=== PATIENT | female | born 2005 | race Caucasian/White ===

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

== ENCOUNTER 2024-05-01 07:43 | Outpatient (AMB) | payer OTHER, SELFPAY ==
--- NOTE | 2024-05-01 08:01 | A.OFFPC_ITS ---
Vital Signs 05/01/24 08:14 Height 5 ft 4.96 in Weight 324 lb BMI 54.0 BP 138/84 Blood Pressure Location Rt brachial Position Sitting Respiration 16 Pulse 87 Pulse Source Pulse Oximeter Temp 96.8 F Temp Source Temporal Artery Scan Pulse Oximetry (%) 98 Oxygen Delivery Method Room Air Intake Visit Reasons: Establish Care not a transfer Intake Note: New patient visit. Is supposed to be on metformin and sertraline but has been out of medication for a year. Doesn't know the strength of the sertraline. Is last menstrual period known: Yes Last menstrual period: 04/30/24 Allergies No Known Allergies Allergy (Verified 05/01/24 08:13) Medication List - Last Reconciled 05/01/24 by Deanna Head PA-C vmtzaahtmv-sqazmdnsmopqc-pwjr 50-300-40 mg (Fioricet) 1 cap PO Q8H PRN 3 days Tobacco use date assessed: 05/01/24 Dental Screening Dental Screen Date: 05/01/24 Did you have a dental visit in the last 12 months?: No Did you have a dental problem in the last 6 months where you did not have access to dental care?: No Was dental information given to patient?: Yes HPI Establish Care not a transfer HPI Details Patient is a 19-year-old female who presents today to establish care. She states she is transferring from pediatrics and was diagnosed with epilepsy, pcos, chronic sinusitus, and anxiety with depression. Psych: she was on sertraline 50 mg for years and states that it was very helpful. She never tried anything different. No SI/HI. She does request a therapist. -She is starting school at [employer]. This is her first time living on a campus. She thinks she likes her new roommates but worries that they may constitution party more than she does. ENT: has a hx of chronic sinusitis and was followed by ENT and did have sinus surgery. She cannot tell me much about this other than it was done last year and it has helped. She was on flonase which was helpful but stopped getting rx filled, does not know why. Neuro: last followed with [facility] 3 years ago. Her last seizure was 4 years ago. She states she last took meds 3 years ago and they were trying to taper her off of the medications. She states it makes her worried because she does get episodes of staring spells. She states she can tell when this is going to happen. She is worried that she is going to end up with a breakthrough seizure. She is under increased stress starting school and will be living on campus. She has been getting more tension headaches than before. States that she has a workup for this in the past. Uses Fioricet as needed. Internal Controls Analyst: She used to take metformin for her pcos but it caused GI upset so she stopped it about a year ago. her a1c today is 5.6. 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 How often do you have a drink containing alcohol?: Never 3. How often do you have six or more drinks on one occasion?: Never Total Score: 0 Physical exam (Primary Care) Vital Signs: Last Vital Signs Temp 96.8 F 05/01/24 08:14 Pulse 87 05/01/24 08:14 Resp 16 05/01/24 08:14 BP 138/84 05/01/24 08:14 Pulse Ox 98 05/01/24 08:14 Oxygen Delivery Method Room Air 05/01/24 08:14 BMI result Body Mass Index 54.0 Tobacco/Smoking Status: Tobacco use Status Tobacco use date assessed 05/01/24 05/01/24 08:18 Patient Tobacco Use Status Never used Tobacco 05/01/24 08:18 e-Cigarette/Vaping Use Never Used 05/01/24 08:18 Const Orientation/consciousness: patient oriented x3 HENMT Ears: hearing grossly normal bilaterally Neck Thyroid: Thyroid normal Lymphatic: no lymphadenopathy noted Resp Auscultation: clear to auscultation bilaterally Cardio Rate: regular rate Rhythm: regular rhythm Heart sounds: S1 normal heart sound present and S2 normal heart sound present GI Inspection: Yes normal to inspection Palpation (GI): Soft to palpation and Other GI palpation findings present (nontender, no cva tenderness) Auscultation: normoactive bowel sounds Rectal Exam - Female: deferred Skin General skin exam: no rashes or lesions noted Neuro General: patient oriented x3, gait normal and no focal motor deficits Assessment and Plan Assessment & Plan (1) History of epilepsy: Code(s): Z86.69 - Personal history of other diseases of the nervous system and sense organs Plan: Referral to neurology as she does endorse more staring episodes . (2) Tension headache, chronic: Code(s): G44.229 - Chronic tension-type headache, not intractable Qualifiers: Intractability: not intractable Qualified Code(s): G44.229 - Chronic tension-type headache, not intractable Plan: Uses Fioricet as needed and states that she has had a slight increase in headaches. She states that this has previously managed by Neurology. Referral to neurology for this and her history of seizures. Advised to get records. (3) PCOS (polycystic ovarian syndrome): Code(s): E28.2 - Polycystic ovarian syndrome Plan: Following with manager of software (4) Insulin resistance: Code(s): E88.819 - Insulin resistance, unspecified Plan: Did not tolerate metformin. A1c 5.6 (5) Chronic sinusitis: Code(s): J32.9 - Chronic sinusitis, unspecified Qualifiers: Sinusitis location: maxillary Qualified Code(s): J32.0 - Chronic maxillary sinusitis Plan: We will start Flonase. (6) Anxiety with depression: Code(s): F41.8 - Other specified anxiety disorders Plan: We will restart sertraline. Advised to take half a tab for 2 weeks and increase to 1 tablet. Follow up in 1 month. Sooner if needed. Referral to behavioral health. Labs ordered today. Orders: Orders Complete Blood Count Auto Diff Today E28.2 - Polycystic ovarian syndrome, E88.819 - Insulin resistance, unspecified, Z01.84 - Encounter for antibody response examination, Z86.69 - Personal history of other diseases of the nervous system and sense organs Varicella IgG Antibody Today E28.2 - Polycystic ovarian syndrome, E88.819 - Insulin resistance, unspecified, Z01.84 - Encounter for antibody response ex amination, Z28.39 - Other underimmunization status, Z86.69 - Personal history of other diseases of the nervous system and sense organs T Spot TB Today E28.2 - Polycystic ovarian syndrome, E88.819 - Insulin resistance, unspecified, Z01.84 - Encounter for antibody response examination, Z28.39 - Other underimmunization status, Z86.69 - Personal history of other diseases of the nervous system and sense organs Comprehensive Kaufman. Panel Fast Today E28.2 - Polycystic ovarian syndrome, E88.819 - Insulin resistance, unspecified, Z01.84 - Encounter for antibody response examination, Z86.69 - Personal history of other diseases of the nervous system and sense organs MMR IgG Measles Mumps Rubella Today E28.2 - Polycystic ovarian syndrome, E88.819 - Insulin resistance, unspecified, Z01.84 - Encounter for antibody response examination, Z28.39 - Other underimmunization status, Z86.69 - Personal history of other diseases of the nervous system and sense organs Lipid Panel Today E28.2 - Polycystic ovarian syndrome, E88.819 - Insulin resistance, unspecified, Z01.84 - Encounter for antibody response examination, Z86.69 - Personal history of other diseases of the nervous system and sense organs Hepatitis B Surface Antibody Today E28.2 - Polycystic ovarian syndrome, E88.819 - Insulin resistance, unspecified, Z01.84 - Encounter for antibody response examination, Z28.39 - Other underimmunization status, Z86.69 - Personal history of other diseases of the nervous system and sense organs Referrals Behavioral Health Referral F41.8 - Other specified anxiety disorders Neurology Referral G44.229 - Chronic tension-type headache, not intractable, Z86.69 - Personal history of other diseases of the nervous system and sense organs Medications: New sertraline 50 mg PO DAILY 90 tabs 3RF fluticasone propionate 50 mcg/actuation (Flonase Allergy Relief) administer into each nostril 2 sprays intranasal DAILY 16 grams 0RF Coding Level of Care Code New Pt Level 4 (85468) Complex EM visit Add On G2211 Diagnoses History of epilepsy Z86.69 Chronic tension-type headache, not intractable G44.229 Intractability: not intractable PCOS (polycystic ovarian syndrome) E28.2 Insulin resistance E88.819 Chronic maxillary sinusitis J32.0 Sinusitis location: maxillary Anxiety with depression F41.8
[2024-05-01 08:14] VITALS: BP 138/84; PULSE 87; RESP 16; TEMP 36; O2SAT 98; BMI 54.0
== END 2024-05-01 08:48 | disposition home or self-care (01) ==
PROVIDERS: PCP Physician Assistant; Visit Provider Physician Assistant
DX: Z86.69 Personal history of other diseases of the nervous system and sense organs (principal); G44.229 Chronic tension-type headache, not intractable; E28.2 Polycystic ovarian syndrome; E88.819 Insulin resistance, unspecified; J32.0 Chronic maxillary sinusitis; F41.8 Other specified anxiety disorders
CPT/HCPCS: 99204; G2211

== ENCOUNTER 2024-05-01 08:52 | Outpatient (REF) | payer OTHER, SELFPAY ==
[2024-05-01 12:09] LABS: MANUAL DIFF FLAG NO
[2024-05-01 12:46] LABS: Alanine Aminotransferase 55 U/L (0-31); Albumin Level 4.4 g/dL (3.5-5.0); Alkaline Phosphatase 53 U/L (39-117); Anion Gap 15 (12-20); Aspartate Amino Transferase 31 U/L (5-31); Bilirubin Total 0.2 mg/dL (0.0-1.0); Blood Urea Nitrogen 9 mg/dL (9-16); Calcium 10.3 mg/dL (8.4-10.2); Carbon Dioxide 20 mmol/L (22-29); Chloride 107 mmol/L (96-108); Cholesterol 178 mg/dL (<200); Estimated Glomerular Filt Rate > 60; Glucose Fasting 94 mg/dL (60-99); HDL Cholesterol 44 mg/dL (>40); LDL Cholesterol Calculated 95 mg/dL (<100); Potassium 3.8 mmol/L (3.3-5.1); Sodium 138 mmol/L (135-145); Total Protein 8.1 g/dL (6.5-8.0); Triglycerides 195 mg/dL (<150)
[2024-05-01 13:31] LABS: Basophils Absolute Auto 0.1 X10*3/uL (0.0-0.2); Basophils Percent Auto 0.9 % (0-2); Eosinophils Absolute Auto 0.2 X10*3/uL (0.0-0.4); Eosinophils Percent Auto 2.6 % (0-4); Hematocrit 42.3 % (37.0-47.0); Imm Gran Abs Auto 0.02 X10*3/uL (0.00-0.03); Imm Gran Pct Auto 0.3 % (0.0-0.4); Lymphocytes Absolute Auto 2.3 X10*3/uL (1.2-4.9); Lymphocytes Percent Auto 39.2 % (20-40); Mean Corpuscular HGB Conc 33.1 g/dl (31.0-35.0); Mean Corpuscular Hemoglobin 28.3 pg (27.0-33.0); Mean Corpuscular Volume 85.5 fL (80.0-98.0); Mean Platelet Volume 10.9 fL (9.4-12.3); Monocytes Absolute Auto 0.7 X10*3/uL (0.1-1.2); Monocytes Percent Auto 11.3 % (2-11); Neutrophils Absolute Auto 2.7 x10*3/uL (2.0-8.3); Neutrophils Percent Auto 45.7 % (45-73); Platelet Count 315 X10*3/uL (160-400); Red Blood Count 4.95 X10*6/uL (4.20-5.50); Red Cell Distribution Width 13.7 % (11.0-16.0); White Blood Count 5.9 X10*3/uL (4.8-10.8)
[2024-05-02 04:54] LABS: HBS Num1 0.32 mIU/mL (0-7.99); ~Hepatitis B Surface Antibody NONREACTIVE (Nonreactive)
[2024-05-02 12:48] LABS: Mumps Virus IgG Antibody <9.00 AU/mL; Rubella IgG Antibody 0.94 Index; Rubeola IgG (Measles) <13.50 AU/mL; Varicella IgG Antibody <135.00 index
[2024-05-04 07:43] LABS: TS Negative Control Passed; TS Panel A 0; TS Panel B 0; TS Positive Control Passed; TSpotTB Negative (Negative)
== END 2024-05-01 08:53 | disposition home or self-care (01) ==
LOC: HO.WFDLDS 08:52
PROVIDERS: Visit Provider Physician Assistant
DX: E88.819 Insulin resistance, unspecified (principal); E28.2 Polycystic ovarian syndrome; Z86.69 Personal history of other diseases of the nervous system and sense organs; Z01.84 Encounter for antibody response examination; Z28.39 Other underimmunization status
CPT/HCPCS: 36415; 80053; 80061; 85025; 86481; 86706; 86735; 86762; 86765; 86787

== ENCOUNTER 2024-05-06 16:02 | Outpatient (REF) | payer OTHER, SELFPAY ==
[2024-05-06 17:11] LABS: Alanine Aminotransferase 53 U/L (0-31); Albumin Level 4.3 g/dL (3.5-5.0); Alkaline Phosphatase 54 U/L (39-117); Anion Gap 17 (12-20); Aspartate Amino Transferase 42 U/L (5-31); Bilirubin Total 0.3 mg/dL (0.0-1.0); Blood Urea Nitrogen 9 mg/dL (9-16); Calcium 10.3 mg/dL (8.4-10.2); Carbon Dioxide 19 mmol/L (22-29); Chloride 108 mmol/L (96-108); Estimated Glomerular Filt Rate > 60; Glucose Random 95 mg/dL (60-115); Potassium 4.5 mmol/L (3.3-5.1); Sodium 139 mmol/L (135-145); Total Protein 8.3 g/dL (6.5-8.0)
== END 2024-05-06 16:03 | disposition home or self-care (01) ==
LOC: HO.LAB 16:02
PROVIDERS: PCP Internal Medicine; Visit Provider Physician Assistant
DX: R79.89 Other specified abnormal findings of blood chemistry (principal)
CPT/HCPCS: 36415; 80053

== ENCOUNTER → 2024-06-05 07:54 | Outpatient (BNVA) | payer OTHER, SELFPAY | PROVIDERS: PCP Internal Medicine; Visit Provider Physician Assistant | DX: F41.8 Other specified anxiety disorders (principal) | CPT/HCPCS: 93005; 99212 ==

== ENCOUNTER 2024-06-05 11:42 | Outpatient (AMB) | payer OTHER, SELFPAY ==
--- NOTE | 2024-06-05 11:52 | A.OFFPC_ITS ---
Vital Signs 06/05/24 11:53 Height 5 ft 4.96 in Weight 326 lb 8 oz BMI 54.4 BP 137/83 Blood Pressure Location Rt brachial Position Sitting Respiration 16 Pulse 102 H Pulse Source Pulse Oximeter Pulse Oximetry (%) 98 Oxygen Delivery Method Room Air Intake Visit Reasons: f/u anxiety Intake Note: Follow up anxiety Marshmallow Maker Required: No Allergies No Known Allergies Allergy (Verified 06/05/24 11:52) Medication List - Last Reconciled 06/05/24 by Deanna Head PA-C qshcrpfbtl-fjkowzmcdyeow-hwtz 50-300-40 mg (Fioricet) 1 cap PO Q8H PRN 3 days fluticasone propionate 50 mcg/actuation (Flonase Allergy Relief) 2 sprays intranasal DAILY Tobacco use date assessed: 05/01/24 Dental Screening Dental Screen Date: 05/01/24 HPI f/u anxiety HPI Details Patient is a 19-year-old female who presents today for a follow up of her anxiety. She has a history of anxiety and depression and was recently started on sertraline 50 mg. Has felt like it has helped somewhat but not to the degree that she would like. She says that while she is at school she just feels very anxious. She is living on campus and going to [employer]. 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 She states that she can feel her heart start to speed up and she knows that she is about to have a panic attack. This only happens while she is at school. She does have a good support system with her family. She has not followed with her agronomy advisor or a therapist yet on campus. She thinks that part of her anxiety is at her work load is too high. She is working on getting accommodations in place. I did fill this out at her last visit. 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 Current occupational exposures/hazards: No Cognitive needs: No Hearing needs: No Vision needs: No Questionnaire Thrive Questionnaire Date Thrive assessed: 06/03/24 I am a: Patient What is your living situation today?: I have a steady place to live Within the past 12 months, did the food you bought not last and you didn't have the money to get more?: I choose not to answer this question Within the past 12 months, did you worry whether your food would run out before you got money to buy more?: I choose not to answer this question Do you have trouble paying for medicines?: I choose not to answer this question Do you have trouble getting transportation to medical appointments?: No Do you have trouble paying your heating and electricity bill?: I choose not to answer this question Do you have trouble taking care of your child, family member or friend?: I choose not to answer this question Do you have trouble with day-to-day activities such as bathing, preparing meals, shopping, managing finances, etc.?: I choose not to answer this question Are you currently unemployed and looking for a job?: I choose not to answer this question Are you interested in more education?: I choose not to answer this question Please select the resources that you would like help with: None Currently or been in a relationship where the following occur: No concerns reported THRIVE Score: 0 LENORA-7 AMB Questionnaire LENORA-7 Date LENORA - 7 assessed: 06/05/24 Source: Developed by Drs. River Villanueva, Milagro Ramírez, Elia Banks and colleagues, with an educational reji from [employer]. Physical exam (Primary Care) Vital Signs: Last Vital Signs Pulse 102 H 06/05/24 11:53 Resp 16 06/05/24 11:53 BP 137/83 06/05/24 11:53 Pulse Ox 98 06/05/24 11:53 Oxygen Delivery Method Room Air 06/05/24 11:53 BMI result Body Mass Index 54.4 Tobacco/Smoking Status: Tobacco use Status Tobacco use date assessed 05/01/24 06/05/24 11:57 Patient Tobacco Use Status Never used Tobacco 06/05/24 11:57 e-Cigarette/Vaping Use Never Used 06/05/24 11:57 Thrive Assessment: Date of Thrive Assessment Date Thrive assessed 06/03/24 06/05/24 11:57 Currently or been in a relationship where the following occur: No concerns reported Const Orientation/consciousness: patient oriented x3 HENMT Ears: hearing grossly normal bilaterally Neck Thyroid: Thyroid normal Lymphatic: no lymphadenopathy noted Resp Auscultation: clear to auscultation bilaterally Cardio Rate: regular rate Rhythm: regular rhythm Heart sounds: S1 normal heart sound present and S2 normal heart sound present GI Inspection: Yes normal to inspection Palpation (GI): Soft to palpation and Other GI palpation findings present (nontender, no cva tenderness) Auscultation: normoactive bowel sounds Rectal Exam - Female: deferred Skin General skin exam: no rashes or lesions noted Neuro General: patient oriented x3, gait normal and no focal motor deficits Office Procedures EKG Details: EKG today in office is normal sinus rhythm at a rate of 89 beats per minute with nonspecific STT wave abnormalities. No prior study to compare. EKG interpreted by myself and Dr. Espino. [id number], Complete Assessment and Plan Assessment & Plan (1) Anxiety with depression: Code(s): F41.8 - Other specified anxiety disorders Plan: Given that she is tolerating the Zoloft well I will increase dosage to 100 mg. Hydroxyzine ordered to use as needed for panic. We did discuss risks and benefits and adverse effects of this medication. Strongly encouraged her to follow with her agronomy advisor and with a counselor. She will call me if anything worsens or changes. Advised to seek emergent medical treatment should she develop any thoughts of SI/HI. Feels safe. Has a good support system. One-month follow-up. Sooner if needed. Patient understands and agrees with this plan. Orders: Orders AMB EKG-In Office 06/05/24 R00.2 - Palpitations Medications: New sertraline 100 mg PO DAILY 90 tabs 1RF hydroxyzine HCl 25 mg PO Q8H PRN 30 tabs 2RF anxiety 30 days Discontinued sertraline Discontinued Reason: Doctor's Order 50 mg PO DAILY 90 tabs 3RF Coding Level of Care Code Est Pt Level 4 (47764) Complex EM visit Add On G2211 Diagnoses Anxiety with depression F41.8 CPT Codes EKG - CPT: 34442-Uvwaijxgnqexdfrjq, Complete ([id number])
[2024-06-05 11:53] VITALS: BP 137/83; PULSE 102; RESP 16; O2SAT 98; BMI 54.4
== END 2024-06-05 12:41 | disposition home or self-care (01) ==
PROVIDERS: PCP Internal Medicine; Visit Provider Physician Assistant
DX: F41.8 Other specified anxiety disorders (principal)

== ENCOUNTER 2024-06-26 08:36 | Outpatient (AMB) | payer OTHER, SELFPAY ==
--- NOTE | 2024-06-26 08:59 | A.OFFPC_ITS ---
Vital Signs 06/26/24 09:00 Height 5 ft 4.95 in Weight 320 lb 8 oz BMI 53.4 BP 130/77 Blood Pressure Location Rt brachial Position Sitting Respiration 16 Pulse 101 H Pulse Source Pulse Oximeter Pulse Oximetry (%) 97 Oxygen Delivery Method Room Air Intake Visit Reasons: follow up meds Intake Note: Follow up Allergies No Known Allergies Allergy (Verified 06/05/24 11:52) Medication List - Last Reconciled 06/26/24 by Deanna Head PA-C [id number]-ihvrinngwdtys-tzcb 50-300-40 mg (Fioricet) 1 cap PO Q8H PRN 3 days fluticasone propionate 50 mcg/actuation (Flonase Allergy Relief) 2 sprays intranasal DAILY hydroxyzine HCl 25 mg PO Q8H PRN 30 days sertraline 100 mg PO DAILY Tobacco use date assessed: 05/01/24 Dental Screening Dental Screen Date: 05/01/24 HPI follow up meds HPI Details Patient is a 19-year-old female who presents today for a follow up. She was seen recently and increased on her sertraline to 100 mg daily for anxiety and depression. She states that the increased dosage is going very well for her. She feels much more in control of her mood. States that she has been happier and has not needed to change any of her classes. She states her roommate appears to be less bothersome. She is adjusting much better to school now. Denies needing to use hydroxyzine at all. No SI/HI. 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 Current occupational exposures/hazards: No Cognitive needs: No Hearing needs: No Vision needs: No Questionnaire Thrive Questionnaire Date Thrive assessed: 06/03/24 I am a: Patient What is your living situation today?: I have a steady place to live Within the past 12 months, did the food you bought not last and you didn't have the money to get more?: I choose not to answer this question Within the past 12 months, did you worry whether your food would run out before you got money to buy more?: I choose not to answer this question Do you have trouble paying for medicines?: I choose not to answer this question Do you have trouble getting transportation to medical appointments?: No Do you have trouble paying your heating and electricity bill?: I choose not to answer this question Do you have trouble taking care of your child, family member or friend?: I choose not to answer this question Do you have trouble with day-to-day activities such as bathing, preparing meals, shopping, managing finances, etc.?: I choose not to answer this question Are you currently unemployed and looking for a job?: I choose not to answer this question Are you interested in more education?: I choose not to answer this question Please select the resources that you would like help with: None Currently or been in a relationship where the following occur: No concerns reported THRIVE Score: 0 LENORA-7 AMB Questionnaire LENORA-7 Date LENORA - 7 assessed: 06/05/24 Source: Developed by Drs. River Villanueva, Milagro Ramírez, Elia Banks and colleagues, with an educational reji from [employer]. Physical exam (Primary Care) Vital Signs: Last Vital Signs Pulse 101 H 06/26/24 09:00 Resp 16 06/26/24 09:00 BP 130/77 06/26/24 09:00 Pulse Ox 97 06/26/24 09:00 Oxygen Delivery Method Room Air 06/26/24 09:00 BMI result Body Mass Index 53.4 Tobacco/Smoking Status: Tobacco use Status Tobacco use date assessed 05/01/24 06/26/24 09:03 Patient Tobacco Use Status Never used Tobacco 06/26/24 09:03 e-Cigarette/Vaping Use Never Used 06/26/24 09:03 Thrive Assessment: Date of Thrive Assessment Date Thrive assessed 06/03/24 06/26/24 09:03 Currently or been in a relationship where the following occur: No concerns reported Const Orientation/consciousness: patient oriented x3 HENMT Ears: hearing grossly normal bilaterally Resp Auscultation: clear to auscultation bilaterally Cardio Rate: regular rate Rhythm: regular rhythm Heart sounds: S1 normal heart sound present and S2 normal heart sound present Skin General skin exam: no rashes or lesions noted Neuro General: patient oriented x3, gait normal and no focal motor deficits Coding Level of Care Code Est Pt Level 3 (42079) Diagnoses Anxiety with depression F41.8 Assessment & Plan Assessment & Plan (1) Anxiety with depression: Code(s): F41.8 - Other specified anxiety disorders Category: Medical Plan: Continue current regimen. Follow up in 3-4 months. Sooner if needed. Patient understands and agrees with this plan.
[2024-06-26 09:00] VITALS: BP 130/77; PULSE 101; RESP 16; O2SAT 97; BMI 53.4
== END 2024-06-26 09:14 | disposition home or self-care (01) ==
PROVIDERS: PCP Internal Medicine; Visit Provider Physician Assistant
DX: F41.8 Other specified anxiety disorders (principal)

== ENCOUNTER → 2024-06-26 08:36 | Outpatient (BNVA) | payer OTHER, SELFPAY | PROVIDERS: PCP Internal Medicine; Visit Provider Physician Assistant | DX: F41.8 Other specified anxiety disorders (principal) | CPT/HCPCS: 99212 ==

== ENCOUNTER 2024-10-02 08:36 | Outpatient (AMB) | payer OTHER, SELFPAY ==
--- NOTE | 2024-10-02 08:41 | A.OFFPC_ITS ---
Vital Signs 10/02/24 08:45 Height 5 ft 4.95 in Weight 320 lb 4 oz BMI 53.4 BP 126/68 Blood Pressure Location Rt brachial Position Sitting Pulse 102 H Pulse Source Pulse Oximeter Pulse Oximetry (%) 98 Oxygen Delivery Method Room Air Intake Visit Reasons: anxiety f/u Intake Note: Anxiety follow up Machine Worker Required: No Allergies No Known Allergies Allergy (Verified 10/02/24 08:41) Medication List - Last Reconciled 10/02/24 by Deanna Head PA-C [id number]-kqmwqmrwbzkux-awoo 50-300-40 mg (Fioricet) 1 cap PO Q8H PRN 3 days fluticasone propionate 50 mcg/actuation (Flonase Allergy Relief) 2 sprays intranasal DAILY hydroxyzine HCl 25 mg PO Q8H PRN 30 days Tobacco use date assessed: 10/02/24 Dental Screening Dental Screen Date: 05/01/24 HPI anxiety f/u HPI Details Patient is a 19-year-old female who presents today for a follow up. Psych: She has been off of her zoloft for 1 month due to insurance issues. She was doing well when she was on sertraline to 100 mg daily for anxiety and depression. She is getting mostly A's in school. Uses hydroxyzine sparingly. No SI/HI. She is moving across campus to a new double room. She states that this will be better since she does not get along with her current roommate. She is seeing a therapist at [facility]. She found this very helpful. They have had a couple sessions and she finds this better for her. She does have a history of prediabetes and elevated LFTs. She has not yet gotten her labs rechecked. 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 1. Little interest or pleasure in doing things: several days 2. Feeling down, depressed, or hopeless: several days 3. Trouble falling or staying asleep, or sleeping too much: more than half the days 4. Feeling tired or having little energy: more than half the days 5. Poor appetite or overeating: several days 6. Feeling bad about yourself - or that you are a failure or have let yourself or your family down: several days 7. Trouble concentrating on things, such as reading the newspaper or watching television: not at all 8. Moving or speaking so slowly that other people could have noticed. Or the opposite - being so fidgety or restless that you have been moving around a lot more than usual: several days 9. Thoughts that you would be better off or of hurting yourself in some way: not at all Total score: 9 Depression Screening Interpretation: Positive Depression Screening Done: Yes 85110 - PHQ-9 Billing: Yes Source: Developed by Drs. River Villanueva, Milagro Ramírez, Elia Banks and colleagues, with an educational reji from [employer]. Thrive Questionnaire Date Thrive assessed: 06/03/24 I am a: Patient What is your living situation today?: I have a steady place to live Within the past 12 months, did the food you bought not last and you didn't have the money to get more?: I choose not to answer this question Within the past 12 months, did you worry whether your food would run out before you got money to buy more?: I choose not to answer this question Do you have trouble paying for medicines?: I choose not to answer this question Do you have trouble getting transportation to medical appointments?: No Do you have trouble paying your heating and electricity bill?: I choose not to answer this question Do you have trouble taking care of your child, family member or friend?: I choose not to answer this question Do you have trouble with day-to-day activities such as bathing, preparing meals, shopping, managing finances, etc.?: I choose not to answer this question Are you currently unemployed and looking for a job?: I choose not to answer this question Are you interested in more education?: I choose not to answer this question Please select the resources that you would like help with: None Currently or been in a relationship where the following occur: I choose not to answer THRIVE Score: 0 AUDIT C Alcohol Use Questionnaire (AUDIT-C) 1. How often do you have a drink containing alcohol?: Monthly or less 2. How many drinks containing alcohol do you have on a typical day when you are drinking?: 1 or 2 3. How often do you have six or more drinks on one occasion?: Never Total Score: 1 LENORA-7 AMB Questionnaire LENORA-7 Date LENORA - 7 assessed: 10/02/24 Feeling nervous, anxious, or on edge: 1 = Several days Not being able to stop or control worryin = Several days Worrying too much about different things: 1 = Several days Trouble relaxin = More than half the days Being so restless that it is hard to sit still: 1 = Several days Becoming easily annoyed or irritable: 0 = Not at all Feeling afraid as if something awful might happen: 0 = Not at all Total LENORA-7 score (0-4 normal; 5-9 mild; 10-14 moderate; 15-21 severe): 6 Source: Developed by Drs. River Villanueva, Milagro Ramírez, Elia Banks and colleagues, with an educational reji from [employer]. LENORA-7 Assessment Billing LENORA-7 Assessment Tool: LENORA-7 Assessment 49899 Physical exam (Primary Care) Vital Signs: Last Vital Signs Pulse 102 H 10/02/24 08:45 BP 126/68 10/02/24 08:45 Pulse Ox 98 10/02/24 08:45 Oxygen Delivery Method Room Air 10/02/24 08:45 BMI result Body Mass Index 53.4 Tobacco/Smoking Status: Tobacco use Status Tobacco use date assessed 10/02/24 10/02/24 08:49 Patient Tobacco Use Status Never used Tobacco 10/02/24 08:49 e-Cigarette/Vaping Use Never Used 10/02/24 08:49 PHQ-9: PHQ-9 Score PHQ-9: Total score 9 10/02/24 08:49 Depression Screening Interpretation: Positive Thrive Assessment: Date of Thrive Assessment Date Thrive assessed 06/03/24 10/02/24 08:49 Currently or been in a relationship where the following occur: I choose not to answer Const Orientation/consciousness: patient oriented x3 HENMT Ears: hearing grossly normal bilaterally Neck Thyroid: Thyroid normal Lymphatic: no lymphadenopathy noted Resp Auscultation: clear to auscultation bilaterally Cardio Rate: regular rate Rhythm: regular rhythm Heart sounds: S1 normal heart sound present and S2 normal heart sound present GI Inspection: Yes normal to inspection Palpation (GI): Soft to palpation and Other GI palpation findings present (nontender, no cva tenderness) Auscultation: normoactive bowel sounds Rectal Exam - Female: deferred Skin General skin exam: no rashes or lesions noted Neuro General: patient oriented x3, gait normal and no focal motor deficits Coding Level of Care Code Est Pt Level 4 (48184) Complex EM visit Add On G2211 Diagnoses Insulin resistance E88.819 Anxiety with depression F41.8 Elevated LFTs R79.89 Hypercalcemia E83.52 Additional Codes LENORA-7 Assessment Billing - LENORA-7 Assessment Tool: LENORA-7 Assessment 66591 ([id number]) PHQ-9 - 04045 - PHQ-9 Billing: Yes ([id number]) Assessment & Plan Assessment & Plan (1) Insulin resistance: Code(s): E88.819 - Insulin resistance, unspecified Category: Medical Plan: A1c ordered (2) Anxiety with depression: Code(s): F41.8 - Other specified anxiety disorders Category: Medical Plan: We will restart sertraline at 25 mg and taper to 50 mg. She has been off of this medication for 4-6 weeks. I will see her back in about a month to reassess. (3) Elevated LFTs: Code(s): R79.89 - Other specified abnormal findings of blood chemistry Category: Medical Plan: Discussed if elevated we will order a liver ultrasound. Discussed the importance of healthy lifestyle, weight loss and diet modifications (4) Hypercalcemia: Code(s): E83.52 - Hypercalcemia Category: Medical Plan: Labs ordered. Orders: Orders TSH reflex Free T4 Today E83.52 - Hypercalcemia, E88.819 - Insulin resistance, unspecified, F41.8 - Other specified anxiety disorders, R79.89 - Other specified abnormal findings of blood chemistry Parathyroid Hormone Intact Today E83.52 - Hypercalcemia, E88.819 - Insulin resistance, unspecified, F41.8 - Other specified anxiety disorders, R79.89 - Other specified abnormal findings of blood chemistry Hemoglobin A1c Today E83.52 - Hypercalcemia, E88.819 - Insulin resistance, unspecified, F41.8 - Other specified anxiety disorders, R73.01 - Impaired fasting glucose, R79.89 - Other specified abnormal findings of blood chemistry Liver Panel Today E83.52 - Hypercalcemia, E88.819 - Insulin resistance, unspecified, F41.8 - Other specified anxiety disorders, R79.89 - Other specified abnormal findings of blood chemistry Basic Metabolic Panel Today E83.52 - Hypercalcemia, E88.819 - Insulin resistance, unspecified, F41.8 - Other specified anxiety disorders, R79.89 - Other specified abnormal findings of blood chemistry Calcium, Ionized Today E83.52 - Hypercalcemia, E88.819 - Insulin resistance, unspecified, F41.8 - Other specified anxiety disorders, R79.89 - Other specified abnormal findings of blood chemistry Vitamin D 1,25 dihydroxy Today E83.52 - Hypercalcemia Medications: New sertraline (Zoloft) start 1/2 tab x 2 weeks then increase to 1 tab daily 50 mg PO DAILY 90 tabs 1RF Changed From hydroxyzine HCl 25 mg PO Q8H 30 days PRN 30 tabs 2RF anxiety To hydroxyzine HCl 25 mg PO Q8H 90 days PRN 90 tabs 2RF anxiety
[2024-10-02 08:45] VITALS: BP 126/68; PULSE 102; O2SAT 98; BMI 53.4
== END 2024-10-02 09:30 | disposition home or self-care (01) ==
PROVIDERS: PCP Internal Medicine; Visit Provider Physician Assistant
DX: R79.89 Other specified abnormal findings of blood chemistry (principal); E88.819 Insulin resistance, unspecified; F41.8 Other specified anxiety disorders; E83.52 Hypercalcemia

== ENCOUNTER → 2024-10-02 08:36 | Outpatient (BNVA) | payer OTHER, SELFPAY | PROVIDERS: PCP Internal Medicine; Visit Provider Physician Assistant | DX: F41.8 Other specified anxiety disorders (principal); F32.A Depression, unspecified; E88.819 Insulin resistance, unspecified; E83.52 Hypercalcemia; R79.89 Other specified abnormal findings of blood chemistry | CPT/HCPCS: 96127; 99212 ==

== ENCOUNTER 2024-10-02 09:35 | Outpatient (REF) | payer OTHER, SELFPAY ==
[2024-10-02 11:24] LABS: Estimated Average Glucose 114 mg/dL; Hemoglobin A1C 134.1885 umol/L; Hemoglobin A1c % 5.6 % (<6.0); Total Hemoglobin (HGBA1C) 3524.8225 umol/L
[2024-10-02 11:32] LABS: Alanine Aminotransferase 49 U/L (0-31); Albumin Level 4.3 g/dL (3.5-5.0); Alkaline Phosphatase 57 U/L (39-117); Anion Gap 10 (12-20); Aspartate Amino Transferase 40 U/L (5-31); Bilirubin Direct 0.1 mg/dL (0.0-0.5); Bilirubin Total 0.4 mg/dL (0.0-1.0); Blood Urea Nitrogen 10 mg/dL (9-16); Calcium 9.8 mg/dL (8.4-10.2); Carbon Dioxide 26 mmol/L (22-29); Chloride 107 mmol/L (96-108); Estimated Glomerular Filt Rate > 60; Glucose Fasting 101 mg/dL (60-99); Glucose Random 100 mg/dL (60-115); Potassium 4.1 mmol/L (3.3-5.1); Sodium 139 mmol/L (135-145); Total Protein 8.2 g/dL (6.5-8.0)
[2024-10-02 11:51] LABS: TSH reflex Free T4 2.66 uIU/mL (0.32-4.0)
[2024-10-03 15:08] LABS: Calcium, Ionized 5.4 mg/dL (4.7-5.5)
[2024-10-06 12:32] LABS: VITAMIN D (1,25 OH) D3 43 pg/mL; Vit D (1,25-Dihydroxy) Total 43 pg/mL (18-72); Vitamin D (1,25 OH) D2 <8 pg/mL
== END 2024-10-02 09:36 | disposition home or self-care (01) ==
LOC: HO.WFDLDS 09:35
PROVIDERS: Visit Provider Physician Assistant
DX: R79.89 Other specified abnormal findings of blood chemistry (principal); E83.52 Hypercalcemia; F41.8 Other specified anxiety disorders; E88.819 Insulin resistance, unspecified; R73.01 Impaired fasting glucose
CPT/HCPCS: 36415; 80048; 80053; 80076; 82248; 82330; 82652; 83036; 83970; 84443

== ENCOUNTER 2024-10-18 13:03 | Outpatient (AMB) | payer OTHER, SELFPAY ==
--- NOTE | 2024-10-18 13:14 | A.OFFPC_ITS ---
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 Supervisor Vendor Quality Required: No Allergies No Known Allergies Allergy (Verified 10/18/24 13:17) Tobacco use date assessed: 10/02/24 Dental Screening Dental Screen Date: 05/01/24 HPI HPI Comments History of Present Illness Details Patient is a 19-year-old female who presents today for annual exam BH: Doing well on zoloft. She is seeing a therapist at [facility]. She does have a history of prediabetes and elevated LFTs. Last A1C 5.6%. Has been able to lose some weight. Needs to see dolphin trainer. History of PCOS. Tried metformin in the past. Will try aldactone today for hirsituism and acne ROS CONSTITUTIONAL: Denies weight loss, fever and chills. HEENT: Denies changes in vision and hearing. RESPIRATORY: Denies SOB and cough. CV: Denies palpitations and CP GI: Denies abdominal pain, nausea, vomiting and diarrhea. : Denies dysuria and urinary frequency. MSK: Denies new myalgia and joint pain. SKIN: Spot on the nail, new x months NEUROLOGICAL: Denies headache PSYCHIATRIC: Denies recent changes in mood. PHYSICAL EXAM: GENERAL: Alert and oriented x 3. NAD EYES: EOMI. Anicteric. HENT: Moist mucous membranes. No scleral icterus. No cervical lymphadenopathy. LUNGS: Clear to auscultation bilaterally. CARDIOVASCULAR: Regular rate and rhythm. No murmur. No JVD. ABDOMEN: Soft, non-tender +bs EXTREMITIES: No edema. Non-tender. SKIN: No rashes or lesions. Warm. small indented lesion on nail NEUROLOGIC: No focal neurological deficits. CN II-XII grossly intact PSYCHIATRIC: Cooperative. 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: No Cognitive needs: No Hearing needs: No Vision needs: No Questionnaire Thrive Questionnaire Date Thrive assessed: 10/02/24 I am a: Patient What is your living situation today?: I have a steady place to live Within the past 12 months, did the food you bought not last and you didn't have the money to get more?: I choose not to answer this question Within the past 12 months, did you worry whether your food would run out before you got money to buy more?: I choose not to answer this question Do you have trouble paying for medicines?: I choose not to answer this question Do you have trouble getting transportation to medical appointments?: No Do you have trouble paying your heating and electricity bill?: I choose not to answer this question Do you have trouble taking care of your child, family member or friend?: I choose not to answer this question Do you have trouble with day-to-day activities such as bathing, preparing meals, shopping, managing finances, etc.?: I choose not to answer this question Are you currently unemployed and looking for a job?: I choose not to answer this question Are you interested in more education?: I choose not to answer this question Please select the resources that you would like help with: None Currently or been in a relationship where the following occur: I choose not to answer THRIVE Score: 0 LENORA-7 AMB Questionnaire LENORA-7 Date LENORA - 7 assessed: 10/02/24 Source: Developed by Drs. River Villanueva, Milagro Ramírez, Elia Banks and colleagues, with an educational reji from [employer]. Physical exam (Primary Care) Vital Signs: Last Vital Signs Pulse 103 H 10/18/24 13:18 Resp 16 10/18/24 13:18 BP 132/68 10/18/24 13:18 Pulse Ox 96 10/18/24 13:18 Oxygen Delivery Method Room Air 10/18/24 13:18 BMI result Body Mass Index 53.9 Tobacco/Smoking Status: Tobacco use Status Tobacco use date assessed 10/02/24 10/18/24 13:15 Patient Tobacco Use Status Never used Tobacco 10/18/24 13:15 e-Cigarette/Vaping Use Never Used 10/18/24 13:15 Thrive Assessment: Date of Thrive Assessment Date Thrive assessed 10/02/24 10/18/24 13:15 Currently or been in a relationship where the following occur: I choose not to answer Coding Level of Care Code Est Pt Prev Care 18-39y(77312) Diagnoses Physical exam Z00.00 PCOS (polycystic ovarian syndrome) E28.2 Assessment & Plan Assessment & Plan (1) Physical exam: Code(s): Z00.00 - Encounter for general adult medical examination without abnormal findings Category: Medical Plan: 19 y/o for physical exam Preventive measures reviewed. Chronic medical conditions, interval history reviewed. Medications reconciled (2) PCOS (polycystic ovarian syndrome): Code(s): E28.2 - Polycystic ovarian syndrome Category: Medical Plan: referral nougat cutter machine Orders: Referrals Dermatology Referral L60.9 - Nail disorder, unspecified ORDER BUILDER Referral E28.2 - Polycystic ovarian syndrome, N92.6 - Irregular menstruation, unspecified Medications: New spironolactone (Aldactone) 25 mg PO BID 180 tabs 3RF
[2024-10-18 13:18] VITALS: BP 132/68; PULSE 103; RESP 16; O2SAT 96; BMI 53.9
--- OUTSIDE RECORDS SUMMARY | 2024-10-18 13:18 | XMS_ITS | Encounter Summary ---
Author Organization [facility] Address [address] [place] [id number] Phone Care Team Providers Care Manual Arts Teacher Name Role Phone Lora Mims NP Primary Care Provider [phone] Encounter Details Date Type Department Care Team (Late st Contact Info) Description 01/30/[address] [facility] [place] Family Medicine [address] [place] [address] Family Medicine, Physician [address] [place] [address] Social History Tobacco Use Types Packs/Day Years Used Date Smoking Tobacco: Never Assessed Comments Unknown Sex and Gender Information Value Date Recorded Sex Assigned at Not on file Legal Sex Female 6:21 PM EDT Gender Identity Not on file Sexual Orientation Choose not to disclose 2018 2:04 PM EDT documented as of this encounter Plan of Treatment Not on file documented as of this encounter Visit Diagnoses Not on filedocumented in this encounter Care Teams Manual Arts Teacher Relationship Specialty Start Date End Date Lora Mims NP [address] [facility] [address] [address] [place] [address] PCP - General Pediatrics 01/01/21 documented as of this encounter
--- OUTSIDE RECORDS SUMMARY | 2024-10-18 13:18 | XMS_ITS | Encounter Summary ---
Author Organization [facility] Address [address] [place] [address] Phone Care Team Providers Care Executive Sous Chef Name Role Phone Lora Mims NP Primary Care Provider [phone] Encounter Details Date Type Department Care Team (Late st Contact Info) Description 08/15/2011 Documentation [facility] [place] [address] [place] [address] Family Medicine, Physician [address] [place] [address] Social History Tobacco Use Types Packs/Day Years [...] on filedocumented in this encounter Care Teams Executive Sous Chef Relationship Specialty Start Date End Date Lora Mims NP [address] [facility] [address] [facility] [address] [place] [address] PCP - General Pediatrics 01/01/21 documented as of this encounter
--- OUTSIDE RECORDS SUMMARY | 2024-10-18 13:18 | XMS_ITS | Encounter Summary ---
Author Organization [facility] Address [address] [place] [address] Phone Care Team Providers Care Technical Support 1 Software Engineer Name Role Phone Lora Mims NP Primary Care Provider [phone] Encounter Details Date Type Department Care Team (Late st Contact Info) Description 07/15/2011 Documentation [facility] [place] Family Medicine [address] [place] [address] Family Medicine, Physician [address] [place] [address] Social History Tobacco Use Types Packs/Day Years [...] on filedocumented in this encounter Care Teams Technical Support 1 Software Engineer Relationship Specialty Start Date End Date Lora Mims NP [address] [facility] [address] [place] [address] PCP - General Pediatrics 01/01/21 documented as of this encounter
--- OUTSIDE RECORDS SUMMARY | 2024-10-18 13:18 | XMS_ITS | Encounter Summary ---
Author Organization [facility] Address [address] [place] [address] Phone Care Team Providers Care Banquet Attendant Name Role Phone Lora Mims NP Primary Care Provider [phone] Encounter Details Date Type Department Care Team (Late st Contact Info) Description 08/29/2011 [place]ation [facility] [place] [address] [place] [address] Family Medicine, Physician [address] [place] [address] Social History Tobacco Use Types Packs/Day Years [...] on filedocumented in this encounter Care Teams Banquet Attendant Relationship Specialty Start Date End Date Lora Mims NP [address] [facility] [address] [place] [address] PCP - General Pediatrics 01/01/21 documented as of this encounter
--- OUTSIDE RECORDS SUMMARY | 2024-10-18 13:18 | XMS_ITS | Encounter Summary ---
Author Organization [facility] Address [address] [place] [address] Phone Care Team Providers Care Adult Psychiatrist Name Role Phone Lora Mims NP Primary Care Provider [phone] Encounter Details Date Type Department Care Team (Late st Contact Info) Description 08/30/2011 Documentation [facility] [place] Family Medicine [address] [place] [address] Family Medicine, Physician [address] [place] [address] Social History Tobacco Use Types Packs/Day Years [...] on filedocumented in this encounter Care Teams Adult Psychiatrist Relationship Specialty Start Date End Date Lora Mims NP [address] [facility] [address] [place] [address] PCP - General Pediatrics 01/01/21 documented as of this encounter
--- OUTSIDE RECORDS SUMMARY | 2024-10-18 13:18 | XMS_ITS | Encounter Summary ---
Author Organization [facility] Address [address] [place] [address] Phone Care Team Providers Care Airframe Technician Name Role Phone Lora Mims NP Primary Care Provider [phone] Encounter Details Date Type Department Care Team (Late st Contact Info) Description 09/08/2011 Documentation [facility] [place] Family Medicine [address] [place] [address] Family Medicine, Physician [address] [place] [address] Social History Tobacco Use Types Packs/Day Years [...] on filedocumented in this encounter Care Teams Airframe Technician Relationship Specialty Start Date End Date Lora Mims NP [address] [facility] [address] [place] [address] PCP - General Pediatrics 01/01/21 documented as of this encounter
--- OUTSIDE RECORDS SUMMARY | 2024-10-18 13:18 | XMS_ITS | Encounter Summary ---
Author Organization [facility] Address [address] [place] [address] Phone Care Team Providers Care Platform Material Handler Manager Name Role Phone Lora Mims NP Primary Care Provider [phone] Encounter Details Date Type Department Care Team (Late st Contact Info) Description 09/01/2011 Documentation [facility] [place] [address] [place] [address] Family Medicine, Physician [address] [place] [address] Social History Tobacco Use Types Packs/Day Years [...] on filedocumented in this encounter Care Teams Platform Material Handler Manager Relationship Specialty Start Date End Date Lora Mims NP [address] [facility] [address] [place] [address] PCP - General Pediatrics 01/01/21 documented as of this encounter
--- OUTSIDE RECORDS SUMMARY | 2024-10-18 13:18 | XMS_ITS | Encounter Summary ---
Author Organization [facility] Address [address] [place] [address] Phone Care Team Providers Care Cereal Supervisor Name Role Phone Lora Mims NP Primary Care Provider Encounter Details Date Type Department Care Team (Late st Contact Info) Description 04/07/2010 Documentation [facility] [place] Family Medicine [address] [place] [address] Family Medicine, Physician [address] [place] [address] Social History Tobacco Use Types Packs/Day Years [...] on filedocumented in this encounter Care Teams Cereal Supervisor Relationship Specialty Start Date End Date Lora Mims NP [address] [facility] [address] [place] [address] PCP - General Pediatrics 01/01/21 documented as of this encounter
--- OUTSIDE RECORDS SUMMARY | 2024-10-18 13:18 | XMS_ITS | Encounter Summary ---
Author Organization [facility] Address [address] [place] [address] Phone Care Team Providers Care Condenser Setter Name Role Phone Lora Mims NP Primary Care Provider [phone] Encounter Details Date Type Department Care Team (Late st Contact Info) Description 02/16/2012 Conversion Encounter [facility] [address] [facility] [place] [address] Social History Tobacco Use Types Packs/Day Years [...] on filedocumented in this encounter Care Teams Condenser Setter Relationship Specialty Start Date End Date Lora Mims NP [address] [facility] [place] [address] PCP - General Pediatrics 01/01/21 documented as of this encounter
--- OUTSIDE RECORDS SUMMARY | 2024-10-18 13:18 | XMS_ITS | Encounter Summary ---
Author Organization [facility] Address [address] [place] [address] Phone Care Team Providers Care Sap Trainer Name Role Phone Lora Mims NP Primary Care Provider [phone] Encounter Details Date Type Department Care Team (Late st Contact Info) Description 11/04/2010 Documentation [facility] [place] Family Medicine [address] [place] [address] Family Medicine, Physician [address] [place] [address] Social History Tobacco Use Types Packs/Day Years [...] on filedocumented in this encounter Care Teams Sap Trainer Relationship Specialty Start Date End Date Lora Mims NP [address] [facility] [address] [place] [address] PCP - General Pediatrics 01/01/21 documented as of this encounter
--- OUTSIDE RECORDS SUMMARY | 2024-10-18 13:18 | XMS_ITS | Encounter Summary ---
Author Organization [facility] Address [address] [place] [address] Phone Care Team Providers Care Acute Care Occupational Therapist Name Role Phone Lora Mims NP Primary Care Provider Encounter Details Date Type Department Care Team (Late st Contact Info) Description 12/10/2009 Documentation [facility] [place] [address] [place] [address] Family Medicine, Physician [address] [place] [address] Social History Tobacco Use Types Packs/Day Years [...] on filedocumented in this encounter Care Teams Acute Care Occupational Therapist Relationship Specialty Start Date End Date Lora Mims NP [address] [facility] [address] [place] [address] PCP - General Pediatrics 01/01/21 documented as of this encounter
--- OUTSIDE RECORDS SUMMARY | 2024-10-18 13:18 | XMS_ITS | Encounter Summary ---
Author Organization [facility] Address [address] [place] [address] Phone Care Team Providers Care Seismology Teacher Name Role Phone Lora Mims NP Primary Care Provider [phone] Encounter Details Date Type Department Care Team (Late st Contact Info) Description 01/08/2010 Documentation [facility] [place] Family Medicine [address] [place] [address] Family Medicine, Physician [address] [place] [address] Social History Tobacco Use Types Packs/Day Years [...] on filedocumented in this encounter Care Teams Seismology Teacher Relationship Specialty Start Date End Date Lora Mims NP [address] [facility] [address] [place] [address] PCP - General Pediatrics 01/01/21 documented as of this encounter
--- OUTSIDE RECORDS SUMMARY | 2024-10-18 13:18 | XMS_ITS | Encounter Summary ---
Author Organization [facility] Address [address] [place] [address] Phone Care Team Providers Care Signal Maintainer Name Role Phone Lora Mims NP Primary Care Provider [phone] Encounter Details Date Type Department Care Team (Late st Contact Info) Description 10/17/2011 [place] [facility] [place] [address] [place] [address] Family Medicine, Physician [address] [place] [address] Social History Tobacco Use Types Packs/Day Years [...] on filedocumented in this encounter Care Teams Signal Maintainer Relationship Specialty Start Date End Date Lora Mims NP [address] [facility] [address] [place] [address] PCP - General Pediatrics 01/01/21 documented as of this encounter
--- OUTSIDE RECORDS SUMMARY | 2024-10-18 13:18 | XMS_ITS | Encounter Summary ---
Author Organization [facility] Address [address] [place] [address] Phone Care Team Providers Care Auxiliary Plant Operator Name Role Phone Lora Mims NP Primary Care Provider [phone] Encounter Details Date Type Department Care Team (Late st Contact Info) Description 08/31/2011 [place] [facility] [place] [address] [place] [address] Family Medicine, Physician [address] [place] [address] Social History Tobacco Use Types Packs/Day Years [...] on filedocumented in this encounter Care Teams Auxiliary Plant Operator Relationship Specialty Start Date End Date Lora Mims NP [address] [facility] [address] [place] [address] PCP - General Pediatrics 01/01/21 documented as of this encounter
--- OUTSIDE RECORDS SUMMARY | 2024-10-18 13:18 | XMS_ITS | Encounter Summary ---
Author Organization [facility] Address [address] [place] [address] Phone Care Team Providers Care Cdl Program Coordinator Name Role Phone Lora Mims NP Primary Care Provider [phone] Encounter Details Date Type Department Care Team (Late st Contact Info) Description 08/09/2011 Documentation [facility] [place] Family Medicine [address] [place] [address] Family Medicine, Physician [address] [place] [address] Social History Tobacco Use Types Packs/Day Years [...] on filedocumented in this encounter Care Teams Cdl Program Coordinator Relationship Specialty Start Date End Date Lora Mims NP [address] [facility] [address] [place] [address] PCP - General Pediatrics 01/01/21 documented as of this encounter
--- OUTSIDE RECORDS SUMMARY | 2024-10-18 13:18 | XMS_ITS | Encounter Summary ---
Author Organization [facility] Address [address] [place] [address] Phone Care Team Providers Care Compliance Paralegal Name Role Phone Lora Mims NP Primary Care Provider [phone] Encounter Details Date Type Department Care Team (Late st Contact Info) Description 07/20/[address] [facility] [place] Family Medicine [address] [place] [address] Family Medicine, Physician [address] [place] [address] Social History Tobacco Use Types Packs/Day Years [...] on filedocumented in this encounter Care Teams Compliance Paralegal Relationship Specialty Start Date End Date Lora Mims NP [address] [facility] [address] [place] [address] PCP - General Pediatrics 01/01/21 documented as of this encounter
--- OUTSIDE RECORDS SUMMARY | 2024-10-18 13:18 | XMS_ITS | Encounter Summary ---
Author Organization [facility] Address [address] [place] [address] Phone Care Team Providers Care Tack Cutter Name Role Phone Lora Mims NP Primary Care Provider [phone] Encounter Details Date Type Department Care Team (Late st Contact Info) Description 08/22/2011 Documentation [facility] [place] [address] [place] [address] Family Medicine, Physician [address] [place] [address] Social History Tobacco Use Types Packs/Day Years [...] on filedocumented in this encounter Care Teams Tack Cutter Relationship Specialty Start Date End Date Lora Mims NP [address] [facility] [address] [place] [address] PCP - General Pediatrics 01/01/21 documented as of this encounter
--- OUTSIDE RECORDS SUMMARY | 2024-10-18 13:18 | XMS_ITS | Encounter Summary ---
Author Organization [facility] Address [address] [place] [address] Phone Care Team Providers Care Swimming Pool Attendant Name Role Phone Lora Mims NP Primary Care Provider Reason for Visit * Reason Comments Med Refill Encounter Details Date Type Department Care Team (Late st Contact Info) Description 11/29/2022 Refill [facility] [address] [facility] [place] [address] Lora Mims NP [address] [facility] [place] [address] Moderate episode of recurrent major depressive disorder Social History Tobacco Use Types Packs/Day Years Used Date Smoking Tobacco: Never Smokeless Tobacco: Never Hunger/Food Answer Date Recorded In the last 12 months, did y ou or your family ever eat less than you felt you should because there wasn't enough money for food? No 07/23/2020 Stable Housing Answer Date Recorded Are you worried that in the next 2 months you may not have stable housing? No 07/23/2020 Transportation Concerns Answer Date Rec orded In the last 12 months, have you or your family ever had to go without healthcare because you didn't have a way to get there? No 07/23/2020 Hazards in Home Answer Date Recorded Think about the place you li ve. Do you have problems with any of the following? Pests (mice or roaches), mold, no/not working smoke detectors, water leaks, no window guards. No 2019 Financing Utilities Answer Date Recorde d In the last 12 months, has t he electric, gas, oil, or water company threatened to shut off your services in your home? No 07/23/2020 Safety at Home Answer Date Recorded Are you or your family worried about feeling saf e in your home? No 07/23/2020 Outside Support Answer Date Recorded Do you feel that you need mo re support from other people or programs to help you care for yourself or your family? No 07/23/2020 Understanding Health Concerns Answer Da te Recorded Do you need help understandi ng your or your child's healthcare needs (diagnosis, medications, plan, etc.)? No 07/23/2020 Financing Health Concerns Answer Date R ecorded In the last 12 months, was t here a time when your child needed to see a doctor or get medications or supplies but could not because of cost? No 07/23/2020 Missing School or Work Answer Date Saravanan rded Did you or your child miss s chool or work because of a health problem that could have been avoided? No 07/23/2020 Comments No Sex and Gender Information Value Date Recorded Sex Assigned at Not on file Legal Sex Female 6:21 PM EDT Gender Identity Not on file Sexual Orientation Choose not to disclose 2018 2:04 PM EDT documented as of this encounter Miscellaneous Notes * Telephone Encounter - Terese Hernadez MA - 12/01/2022 8:39 AM EDT PLEASE DENY SCRIPT Dose was increased to 100mg MQ documented in this encounter Plan of Treatment Not on file documented as of this encounter Visit Diagnoses Diagnosis Moderate episode of recurrent major depressive disorder documented in this encounter Care Teams Swimming Pool Attendant Relationship Specialty Start Date End Date Lora Mims NP [facility] [facility] [place] [address] PCP - General Pediatrics 01/01/21 documented as of this encounter
--- OUTSIDE RECORDS SUMMARY | 2024-10-18 13:18 | XMS_ITS | Encounter Summary ---
Author Organization [facility] Address [address] [place] [address] Phone Care Team Providers Care Retail Wireless Associate Name Role Phone Lora Mims NP Primary Care Provider [phone] Encounter Details Date Type Department Care Team (Late st Contact Info) Description 12/17/2009 Documentation [facility] [place] Family Medicine [address] [place] [address] Family Medicine, Physician [address] [place] [address] Social History Tobacco Use Types Packs/Day Years [...] on filedocumented in this encounter Care Teams Retail Wireless Associate Relationship Specialty Start Date End Date Lora Mims NP [address] [facility] [address] [place] [address] PCP - General Pediatrics 01/01/21 documented as of this encounter
--- OUTSIDE RECORDS SUMMARY | 2024-10-18 13:18 | XMS_ITS | Clinical Summary ---
Author Organization [facility] Address [address] [place] [address] Phone Care Team Providers Care Store Deli Manager Name Role Phone Lora Mims COLLIN Primary Care Provider [phone] Allergies No known active allergies Medications fluticasone 50 MCG/ACT nasal spray Dose Amount: 1 spray, Nasal, daily, Special Instructions: to each nostril, Dispense Quantity: 1 EA, Refills: 11, Entered: 12/04/20 12:28:00 EDT, [facility]/pharmacy #[id number] 1 Active tretinoin 0.025 % cream Dose Amount: 1 appl, TOP, bedtime, Special Instructions: apply as tolerated, Dispense Quantity: 45 g, Refills: 1, Entered: 09/29/20 15:31:00 EST, [facility]/pharmacy #[id number] 1 Active norgestimate-eth inyl estradiol 0.25-35 MG-MCG per tablet Dose Amount: 1 tab, PO, daily, Special Instructions: 28 day (cyclic), Dispense Quantity: 84 tab, Refills: 6, Entered: 03/05/21 11:58:00 EDT, [facility]/pharmacy #[id number] 1 Active loratadine (Claritin) 10 MG tabletIndication s:Allergic rhinitis, unspecified seasonality, unspecified trigger Take 1 tablet (10 mg total) by mouth daily. 30 tablet 5 1 Active metFORMIN 500 MG tablet Take 2,000 mg by mouth nightly. 2 Active hydrOXYzine 25 MG tabletIndication s:Moderate episode of recurrent major depressive disorder TAKE 1 TO 2 TABLETS BY MOUTH AT BEDTIME NEEDED 30 tablet 3 Active sertraline 100 MG tabletIndication s:Moderate episode of recurrent major depressive disorder TAKE 1 TABLET BY MOUTH EVERY DAY 14 tablet 3 Active metFORMIN XR 500 MG 24 hr tablet 3 Active Active Problems Problem Noted Date Diagnosed Date Reactive depression 04/22/2022 Assessment & Plan (06/20/2022 3:00 PM EDT): Concerns for moderate depression Wei is very overwhelmed with work, school, and family dynamics She is seeing a therapist regularly at school Discussed option of starting on medication She declines today, but will consider. We will meet again in 1-2 m to re- evaluate. Assessment & Plan (04/22/2022 2:26 PM EDT): She needs a referral to psychiatry or just to follow up here again. Gingivostomatitis 10/30/2021 Assessment & Plan (10/30/2021 8:45 AM EST): Lmpv-lisb-jqhbx disease ([place]ox[place]ackie) ?? This illness is caused by a virus and can cause a rash on the hands, feet, mouth, and diaper/genital area. ?? The mouth sores can be quite painful. ?? Recommend ibuprofen every 6 hours, cool liquids or popsicles and keeping hydrated as best as possible. ?? Wash hands well. ?? Illness should resolve on own but may take several days Allergic rhinitis 06/14/2021 Assessment & Plan (06/14/2021 3:53 PM EDT): Likely headaches are related to upper airway or sinus irritation. Recommended taking two weeks off of flonase. Starting up with loratadine currently for two weeks and then coming back in with flonase every other day. If headaches persistent then follow up with ENT. No concern for a bacterial infection at this time. Headache 03/05/2021 Overview (05/03/2021): 04/16/2021 - Dr. Hsieh. Resolved left sphenoid sinusitis. Follow up with Neurology for headaches. Assessment & Plan (06/20/2022 3:02 PM EDT): Currently being treated for sinus headaches by ENT at [facility] Assessment & Plan (05/03/2021 9:56 PM EDT): DOS: 04/16/21 Dr Hsieh Dx: Chronic headaches, H/O epilepsy and resolved left sphenoid sinusitis. F/U with Neuro for headaches. No f/u scheduled. Polycystic ovary syndrome 04/06/2020 Overview (06/21/2022): Followed by [facility]- [facility] They do routine blood work- CBC, CMP, lipids, A1C Assessment & Plan (06/20/2022 3:01 PM EDT): Followed by horizontal resaw operator They also treat her for insulin resistance with metformin per pt Will request routine labs from them Acanthosis nigricans 05/14/2019 Acne vulgaris 05/14/2019 Obstructive sleep apnea syndrome 11/15/2018 Overview (05/03/2021): Added by [facility] Added by [facility] Epilepsy 11/27/2017 Overview (05/03/2021): Seizure(s) (780.39) Onset: 11/27/2017 Added by: Betty Carvalho Added by [facility] Assessment & Plan (06/20/2022 3:02 PM EDT): Followed by neurology Assessment & Plan (04/22/2022 2:25 PM EDT): I am not sure what this is. Seizure vs. Pseudoseizures. I will obtain an EEG and re-refer her to seizure. Assessment & Plan (07/26/2020 5:45 PM EST): Followed by neurology. Continue Keppra and seizure precautions. Assessment & Plan (07/13/2019 7:39 AM EDT): On Amy which is controlling seizures well Extrinsic asthma 05/15/2017 Overview (05/15/2018): Asthma (493.00) Onset: 05/15/2017 Added by: Linda Cavazos Obesity 05/15/2017 Overview (05/03/2021): Obesity, NOS (278.00) Onset: 05/15/2017 Added by: Linda Cavazos Added by [facility] Added by [facility] Assessment & Plan (06/20/2022 3:02 PM EDT): Has worked with hospice community liaison/weight loss programs in the past Feeling very overwhelmed lately Discussed concerns regarding weight Reviewed care home potential health risks associated with obesity Discussed dietary changes, portion sizes, limiting snacks, and encouraged healthier options Also reviewed importance of daily aerobic activity Assessment & Plan (07/13/2019 7:37 AM EDT): Followed by [facility] for weight management. Has lost 4 lbs since last visit. Have encouraged her to continue program. Immunizations Name Administration Dates Next Due DTaP 5 02/16/2007, 7,08/03/2004,08/03,2003,2003,2003 ,2003,2003,2003 H1N1 07/22/2009 HPV Vaccine 9 Valent 03/09/2016,02/24/2015 Hep A, ped/adol 07/10/2019,05/15/2018 Hep B, ped/adol 2003, 4,2003,09/03,2003,2003 Hib (HbOC) 05/04/2004 Hib (PRP-T) 05/04/2004, 3,2003,06/10,2003,2003,2003 IPV 02/16/2007, 7,2003,10/29,2003,2003,2003 ,2003 Influenza Split 05/06/2011,07/31/2010 Influenza, injectable, quadr ivalent, preservative free 06/20/2022,06/16/2021,07/23/2020,07/14,05/15/2017,05/05/2015 Influenza, injectable, trivalent 011,07/31/2010,07/10/2008,07/10,07/05/2007,07/05/2007,08/08/2006 ,08/08/2006,09/20/2005,09/20/2005,07/19,08/03/2004 Influenza, injectable, triva lent, preservative free 06/29/2013,06/09/2012 Influenza, intranasal, trivalent 07/05/2014 MMR 02/16/2007,02/02/2004,02/02/2004 MMRV 02/16/2007 Meningococcal Conj (Menactra) MCV4P 07/10/2019,0 02/19/2014 Pneumococcal Conjugate 08/03/2004,2003,2003,09/03,2003,2003,2003 ,2003 Tdap 02/19/2014 Varicella 02/19/2014,02/02/2004,02/02/2004 Family History Relation Name Status Comments Brother Steve Brownlee Alive Brother: Alive and well Father Steve Alive Father: ADD/ADH D, Alive and well, Obesity Maternal Grandmother Materna l grandmother: Multiple sclerosis Mother Laila Alive Mother: ADD/ADH D, Diabetes mellitus, Diabetes mellitus, ADD/ADHD Paternal Grandfather Paterna l grandfather: Elevated cholesterol, Hypertension, ADD/ADHD Paternal Grandmother Paterna l grandmother: Thyroid disease Social History Tobacco Use Types Packs/Day Years [...] not to disclose 2018 2:04 PM EDT Last Filed Vital Signs Vital Sign Reading Time Taken Comments Blood Pressure 130/68 12/07/2022 3:32 PM EDT Pulse 78 12/07/2022 3:32 PM EDT Temperature 37.1 ??C (98.7 ??F) 12/07/2022 3:32 PM ED T Respiratory Rate - - Oxygen Saturation 99% 06/14/2017 9:55 AM EDT Inhaled Oxygen Concentration - - Weight 141 kg (310 lb 8 oz) 12/07/2022 3:32 PM E DT Height 166.5 cm (5' 5.55 ) 06/20/2022 1:58 PM ED T Body Mass Index 50.8 06/20/2022 1:58 PM EDT Plan of Treatment Health Maintenance Due Date Last Done Comments Consider Men B Vaccine (1 of 2 - Bexsero 2-dose series) 2019 Men B Vaccine (1 of 2 - Standard) 2019 DTaP,Tdap,and Td Vaccines (7 - Td or Tdap) 02/20/2024 02/19/2014, 02/16/2007, 02/16/2007, Additional history exists Influenza Vaccines (#1) 2024 06/20/20, 06/16/2021, 07/23/2020, Additional history exists COVID-19 Vaccine (2023-2 5 season) 2024 08/26/2021, 02/23/2021, 02/01/2021 Hepatitis B Vaccines Completed 2003, 2003, 2003, Additional history exists HIB Vaccines Completed 05/04/2004, 04/18, 2003, Additional history exists Pneumococcal Vaccine Completed 08/03/2004, 08/03/2004, 2003, Additional history exists IPV Vaccines Completed 02/16/2007, 09/2006, 2003, Additional history exists MMR Vaccines Completed 02/16/2007, 09/2006, 02/02/2004, Additional history exists Varicella Vaccines Completed 02/19/2014, 0 02/16/2007, 02/02/2004, Additional history exists HPV Vaccines Completed 03/09/2016, 02/24/2015 Hepatitis A Vaccines Completed 07/10/2019, 05/15/20 18 Meningococcal Vaccine Completed 07/10/2019, 014 Procedures * Due to [place] state law, this organization might not be sharing sensitive test results. Procedure Name Priority Date/Time Associated Diagnosis Comments CHLAMYDIA GC AMP PROBE Routine 06/20/2022 2:15 PM EDT Encounter for screening examination for sexually transmitted disease from Last 3 Months or Most Recently Relevant to Health Maintenance Results * Due to [place] state law, this organization might not be sharing sensitive test results. * Chlamydia and Gonorrhoea, Amplified (Vagina) (06/20/2022 2:15 PM EDT) Chlamydia Trachomatis, Amplified NEGATIVE (NEG) [facility] Comment: No Chlamydia Trachomatis RNA detected in this patient's sample ? (REFERENCE RANGE/NORMAL VALUE: NOT DETECTED) ? Note: This test uses breeder hen service technician- mediated amplification method to detect rRNA from C. Trachomatis N.GONORRHOEAE AMP PROBE NEGATIVE (NEG) [facility] Comment: No Neisseria Gonorrhoeae RNA detected in this patient's sample ? (REFERENCE RANGE/NORMAL VALUE: NOT DETECTED) ? NOTE: This test uses breeder hen service technician-mediated amplification method to detect rRNA from N.Gonorrhoeae. A negative result does not preclude infection. In the case of a negative urine result, testing of an endocervical(female) or urethral (male) specimen is recommended if there is high clinical suspicion of infection. Due to very high sensitivity of Nucleic Acid Amplification Test, false positive results may occur. Therefore, specimen handling is extremely important. In patients in whom the disease is unlikely, additional sample for testing should be considered after an initial positive result. The performance characteristics of this test have not been evaluated in children. The Aptima Combo2 assay is not intended for the evaluation of suspected sexual abuse or for other medico-legal indications. The ordering provider should assess if the patient had consensual sex without risk of sexual abuse. Consult the [facility] if needed. Contact phone number . Therapeutic failure or success cannot be determined with the Aptima Combo2 assay since nucleic acid may persist following appropriate antimicrobial therapy. The Centers for Disease Control and Prevention (CDC) recommends confirmatory retesting using culture or a different nucleic acid amplification test when positive results occur, if indicated. CHLAM/GC AMP PROBE SPEC TYPE VAGINAL SPECIMEN [facility] Comment: Testing performed or reported by [facility], a Service of [facility], [address] [place] [address] [place] [address] Cortes Franco MD, Director Ambulatory [facility]# [id number] Swab (Vagina) 06/20/2022 2:1 5 PM EDT 06/21/2022 8:34 AM EDT Lora Mims NP LAB MICROBIOLOGY - GENERAL ORDER KARINA Final Result [facility] from Last 3 Months or Most Recently Relevant to Health [place] [id number] [facility] [employer] [facility] Address: [address] [address] Care Teams Store Deli Manager Relationship Specialty Start Date End Date Lora Mims NP [address] [place] [address] PCP - General Pediatrics 01/01/21
--- OUTSIDE RECORDS SUMMARY | 2024-10-18 13:18 | XMS_ITS | Encounter Summary ---
Author Organization [facility] Address [address] [place] [address] Phone Care Team Providers Care State Farm Agent Name Role Phone Lora Mims NP Primary Care Provider [phone] Encounter Details Date Type Department Care Team (Late st Contact Info) Description 11/30/2009 Documentation [facility] Family Medicine [address] [place] [address] Family Medicine, Physician [address] [place] [address] Social History Tobacco Use Types Packs/Day Years [...] on filedocumented in this encounter Care Teams State Farm Agent Relationship Specialty Start Date End Date Lora Mims NP [address] [place] [address] PCP - General Pediatrics 01/01/21 documented as of this encounter
--- OUTSIDE RECORDS SUMMARY | 2024-10-18 13:18 | XMS_ITS | Encounter Summary ---
Author Organization [facility] Address [address] [place] [address] Phone Care Team Providers Care Slasher Hand Name Role Phone Lora Mims NP Primary Care Provider [phone] Encounter Details Date Type Department Care Team (Late st Contact Info) Description 05/04/2017 Conversion Encounter [facility] - [address] [address] Social History Tobacco Use Types Packs/Day Years [...] on filedocumented in this encounter Care Teams Slasher Hand Relationship Specialty Start Date End Date Lora Mims NP [address] [place] [address] PCP - General Pediatrics 01/01/21 documented as of this encounter
--- OUTSIDE RECORDS SUMMARY | 2024-10-18 13:18 | XMS_ITS | Encounter Summary ---
Author Organization [facility] Address [address] [place] [address] Phone Care Team Providers Care Quality Assurance Lead Name Role Phone Lora Mims NP Primary Care Provider [phone] Encounter Details Date Type Department Care Team (Late st Contact Info) Description 10/04/2011 [place] [facility] [place] [address] [place] [address] Family Medicine, Physician [address] [place] [address] Social History Tobacco Use Types Packs/Day Years [...] on filedocumented in this encounter Care Teams Quality Assurance Lead Relationship Specialty Start Date End Date Lora Mims NP [address] [place] [address] PCP - General Pediatrics 01/01/21 documented as of this encounter
--- OUTSIDE RECORDS SUMMARY | 2024-10-18 13:18 | XMS_ITS | Encounter Summary ---
Author Organization [facility] Address [address] [place] [address] Phone Care Team Providers Care Vertica Architect Name Role Phone Lora Mims NP Primary Care Provider [phone] Reason for Visit * Reason Comments Med Refill Encounter Details Date Type Department Care Team (Late st Contact Info) Description 11/26/2022 Refill [facility] [address] [address] Lora Mims NP [address] [place] [address] Moderate episode of recurrent major depressive disorder [...] Telephone Encounter - Terese Hernadez MA - 12/06/2022 10:05 AM EDT Spoke with Analestevane and she takes 1 tab at night prn. She has enough for the time being. She does not need a refill at this time. PLEASE DENY SCRIPT * Telephone Encounter - Terese Hernadez MA - 12/01/2022 9:00 AM EDT L/M to see if pt is taking 50mg nightly. If so we can refill script now. MQ * Telephone Encounter - Johana Benítez MA - 11/28/2022 10:20 AM EDT NOT DUE TO FILL UNTIL 12/11/22 Last [facility] 06/20/22 Next med ck 12/07/22 Needs to schedule Next [facility] documented in this encounter Plan of Treatment Not on file documented as of this encounter Visit Diagnoses Diagnosis Moderate episode of recurrent major depressive disorder documented in this encounter Care Teams Vertica Architect Relationship Specialty Start Date End Date Lora Mims NP [address] [facility] [address] PCP - General Pediatrics 01/01/21 documented as of this encounter
== END 2024-10-18 13:45 | disposition home or self-care (01) ==
PROVIDERS: PCP Internal Medicine; Visit Provider Internal Medicine
DX: Z00.00 Encounter for general adult medical examination without abnormal findings (principal); E28.2 Polycystic ovarian syndrome

== ENCOUNTER → 2024-10-18 13:03 | Outpatient (BNVA) | payer OTHER, SELFPAY | PROVIDERS: PCP Internal Medicine; Visit Provider Internal Medicine | DX: Z00.00 Encounter for general adult medical examination without abnormal findings (principal); E28.2 Polycystic ovarian syndrome; L60.9 Nail disorder, unspecified | CPT/HCPCS: 99395 ==

== ENCOUNTER 2024-10-23 11:18 | Outpatient (REF) | payer OTHER, SELFPAY ==
--- NOTE | ~2024-10-23 | US_ITS ---
CLINICAL HISTORY: R79.89 - Other specified abnormal findings of blood chemistry US abdomen complete Comparison: None Findings: The visualized pancreas is normal. The aorta and inferior vena cava are normal caliber. Homogeneously increased hepatic echogenicity. Hepatic length 17.6 cm. There is no intrahepatic bile duct dilatation. The common duct is 3 mm in diameter. The gallbladder is normal. There is no sonographic Anderson sign. The main portal vein is antegrade. The right kidney is 12.5 cm in length. The left kidney is 11.7 cm in length. The spleen is top normal at 13 cm. No ascites. IMPRESSION: 1. Hepatic steatosis with hepatomegaly and borderline splenic enlargement. No ascites. This document has been electronically signed by: Dagmar Helms MD on 10/24/2024 06:34:43
== END 2024-10-23 11:19 | disposition home or self-care (01) ==
LOC: HO.HMGCX 11:18
PROVIDERS: PCP Internal Medicine; Visit Provider Physician Assistant
DX: R79.89 Other specified abnormal findings of blood chemistry (principal)
CPT/HCPCS: 76700

== ENCOUNTER → 2024-10-23 11:24 | Outpatient (BNV) | payer OTHER, SELFPAY | PROVIDERS: PCP Internal Medicine; Visit Provider Radiology Diagnostic Radiology | DX: R74.01 Elevation of levels of liver transaminase levels (principal) | CPT/HCPCS: 76700 ==

== ENCOUNTER 2024-11-14 15:01 | Outpatient (AMB) | payer OTHER, SELFPAY ==
--- NOTE | 2024-11-14 15:16 | A.OFFPC_ITS ---
Vital Signs 11/14/24 15:20 Height 5 ft 4.95 in Weight 319 lb 8 oz BMI 53.2 BP 123/60 Blood Pressure Location Lt brachial Position Sitting Respiration 14 Pulse 94 Pulse Source Pulse Oximeter Pulse Oximetry (%) 99 Oxygen Delivery Method Room Air Intake Visit Reasons: anxiety/depression (telehealth or in person) Intake Note: Follow up depression anxiety Informatics Analyst Required: No Allergies No Known Allergies Allergy (Verified 11/14/24 15:19) Medication List - Last Reconciled 11/14/24 by Deanna Head PA-C ojvuzcdfsa-guxysiiahjfno-tftb 50-300-40 mg (Fioricet) 1 cap PO Q8H PRN 3 days fluticasone propionate 50 mcg/actuation (Flonase Allergy Relief) 2 sprays intranasal DAILY hydroxyzine HCl 25 mg PO Q8H PRN 90 days sertraline 100 mg PO DAILY spironolactone (Aldactone) 25 mg PO BID Tobacco use date assessed: 11/14/24 Dental Screening Dental Screen Date: 05/01/24 HPI anxiety/depression (telehealth or in person) HPI Details History of Present Illness The patient is a 19-year-old female presenting with a follow-up for persistent depressive symptoms and anxiety, alongside management of Polycystic Ovary Syndrome (PCOS). Pysch: She has been experiencing depression and anxiety, currently managed with sertraline 50 mg, which was previously beneficial at a higher dosage. The symptoms have not fully remitted, and the patient agrees to increase the sertraline dosage to 100 mg for better management. The patient denies the use of hydroxyzine for anxiety. In addition to psychological distress, she reports challenges in her living situation stemming from disruptive neighbors, which exacerbates her anxiety and feelings of insecurity. Behavioral therapy is ongoing, and the patient reports moderate benefit in learning coping strategies for stress. 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 The patient has a history of using metformin and oral contraceptives to manage her PCOS and is open to resuming these. Her objective includes alleviating symptoms associated with PCOS, recovering menstrual regularity, and addressing nonalcoholic fatty liver disease. Health Maintenance - Discussion on [facility] for management of PCOS and fatty liver improvement. - Coordination and follow-up with an OBG YN for PCOS management. - Consideration of future weight managem ent options, such as Wegovy, pending insurance coverage. - Recommendations to check with insuranc e regarding coverage for possible weight loss medications if interested. Social History - The patient is a student, currently ma naging academic responsibilities while c oping with stressors related to her living environment. - Reports a current challenging living s ituation involving disruptive neighbors, leading to stress and anxiety. Review of Systems - Psychiatric: Reports ongoing depressio n and anxiety. - Endocrine: Reports previous irregular menstrual cycles attributable to PCOS. Physical Exam General: Well developed, well nourished, in no acute distress. Appears stated age. Cardiac: RRR, no murmurs Lungs: clear, equal breath sounds Abdomen: soft, nontender, no CVA tenderness Extremities: no edema Neuro: alert, oriented x3, mood appropriate Plan - Increase sertraline to 100 mg daily to address persistent depression and anxiety symptoms. - Discontinue spironolactone due to adve rse effects experienced by the patient. - Initiate metformin 500 mg extended-rel ease for managing PCOS and addressing fatty liver concerns. - Coordinate with OBGYN for ongoing neelam gement of PCOS and obtain the patient?s prior control regimen to potentially resume as needed. - Discuss potential future use of weight management medications such as Wegovy, pending insurance approval. - Reassessment scheduled for in-clinic f jinlow-up in January, with interim support available via messaging for any urgent concerns or details regarding control management. 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 Current occupational exposures/hazards: No Cognitive needs: No Hearing needs: No Vision needs: No Questionnaire Thrive Questionnaire Date Thrive assessed: 10/02/24 I am a: Patient What is your living situation today?: I have a steady place to live Within the past 12 months, did the food you bought not last and you didn't have the money to get more?: I choose not to answer this question Within the past 12 months, did you worry whether your food would run out before you got money to buy more?: I choose not to answer this question Do you have trouble paying for medicines?: I choose not to answer this question Do you have trouble getting transportation to medical appointments?: No Do you have trouble paying your heating and electricity bill?: I choose not to answer this question Do you have trouble taking care of your child, family member or friend?: I c hoose not to answer this question Do you have trouble with day-to-day activities such as bathing, preparing meals, shopping, managing finances, etc.?: I choose not to answer this question Are you currently unemployed and looking for a job?: I choose not to answer this question Are you interested in more education?: I choose not to answer this question Please select the resources that you would like help with: None Currently or been in a relationship where the following occur: I choose not to answer THRIVE Score: 0 LENORA-7 AMB Questionnaire LENORA-7 Date LENORA - 7 assessed: 10/02/24 Source: Developed by Drs. River Villanueva, Milagro Ramírez, Elia Banks and colleagues, with an educational reji from [employer]. Physical exam (Primary Care) Vital Signs: Last Vital Signs Pulse 94 11/14/24 15:20 Resp 14 11/14/24 15:20 BP 123/60 11/14/24 15:20 Pulse Ox 99 11/14/24 15:20 Oxygen Delivery Method Room Air 11/14/24 15:20 BMI result Body Mass Index 53.2 Tobacco/Smoking Status: Tobacco use Status Tobacco use date assessed 11/14/24 11/14/24 15:22 Patient Tobacco Use Status Never used Tobacco 11/14/24 15:20 e-Cigarette/Vaping Use Never Used 11/14/24 15:20 Thrive Assessment: Date of Thrive Assessment Date Thrive assessed 10/02/24 11/14/24 15:17 Currently or been in a relationship where the following occur: I choose not to answer Coding Level of Care Code Est Pt Level 4 (48651) Complex EM visit Add On G2211 Diagnoses Anxiety with depression F41.8 PCOS (polycystic ovarian syndrome) E28.2 Fatty liver K76.0 Assessment & Plan Assessment & Plan (1) Anxiety with depression: Code(s): F41.8 - Other specified anxiety disorders Category: Medical (2) PCOS (polycystic ovarian syndrome): Code(s): E28.2 - Polycystic ovarian syndrome Category: Medical (3) Fatty liver: Code(s): K76.0 - Fatty (change of) liver, not elsewhere classified Category: Medical Plan . Medications: New sertraline 100 mg PO DAILY 90 tabs 0RF metformin ER 500 mg PO DAILY 90 tabs 1RF Discontinued sertraline (Zoloft) start 1/2 tab x 2 weeks then increase to 1 tab daily Discontinued Reason: Doctor's Order 50 mg PO DAILY 90 tabs 1RF spironolactone (Aldactone) Discontinued Reason: Doctor's Order 25 mg PO BID 180 tabs 3RF
[2024-11-14 15:20] VITALS: BP 123/60; PULSE 94; RESP 14; O2SAT 99; BMI 53.2
--- OUTSIDE RECORDS SUMMARY | 2024-11-14 18:20 | XMS_ITS | Encounter Summary ---
Author Organization [facility] Address [address] [place] [address] Phone Care Team Providers Care Machine Hoop Maker Helper Name Role Phone Lora Mims NP Primary Care Provider [phone] Encounter Details Date Type Department Care Team (Late st Contact Info) Description 12/10/2009 Documentation [facility] [place] [address] [place] [address] Family Medicine, Physician [address] [place] [address] Social History Tobacco Use Types Packs/Day Years [...] on filedocumented in this encounter Care Teams Machine Hoop Maker Helper Relationship Specialty Start Date End Date Lora Mims NP [address] [facility] [address] [place] [address] PCP - General Pediatrics 01/01/21 documented as of this encounter
--- OUTSIDE RECORDS SUMMARY | 2024-11-14 18:20 | XMS_ITS | Encounter Summary ---
Author Organization [facility] Address [address] [place] [address] Phone Care Team Providers Care Ramp Boss Name Role Phone Lora Mims NP Primary Care Provider [phone] Encounter Details Date Type Department Care Team (Late st Contact Info) Description 08/30/2011 Documentation [facility] [place] [address] [place] [address] Family Medicine, Physician [address] [place] [address] Social History Tobacco Use Types Packs/Day Years [...] on filedocumented in this encounter Care Teams Ramp Boss Relationship Specialty Start Date End Date Lora Mims NP [address] [facility] [address] [place] [address] PCP - General Pediatrics 01/01/21 documented as of this encounter
--- OUTSIDE RECORDS SUMMARY | 2024-11-14 18:20 | XMS_ITS | Encounter Summary ---
Author Organization [facility] Address [address] [place] [address] Phone Care Team Providers Care Display Manager Name Role Phone Lora Mims NP Primary Care Provider [phone] Reason for Visit * Reason Comments Med Refill Encounter Details Date Type Department Care Team (Late st Contact Info) Description 11/29/2022 Refill [facility] [address] [place] [address] Lora Mims NP [address] [place] [address] Moderate episode of recurrent major depressive disorder [...] disorder documented in this encounter Care Teams Display Manager Relationship Specialty Start Date End Date Lora Mims NP [facility] [place] [address] PCP - General Pediatrics 01/01/21 documented as of this encounter
--- OUTSIDE RECORDS SUMMARY | 2024-11-14 18:20 | XMS_ITS | Encounter Summary ---
Author Organization [facility] Address [address] [place] [address] Phone Care Team Providers Care Cell Cleaner Name Role Phone Lora Mims NP Primary Care Provider [phone] Encounter Details Date Type Department Care Team (Late st Contact Info) Description 05/04/2017 Conversion Encounter [facility] - [address] [address] Social History Tobacco Use Types Packs/Day Years [...] on filedocumented in this encounter Care Teams Cell Cleaner Relationship Specialty Start Date End Date Lora Mims NP [address] [facility] [facility] [address] [place] [address] PCP - General Pediatrics 01/01/21 documented as of this encounter
--- OUTSIDE RECORDS SUMMARY | 2024-11-14 18:20 | XMS_ITS | Encounter Summary ---
Author Organization [facility] Address [address] [place] [address] Phone Care Team Providers Care Html Web Developer Name Role Phone Lora Mims NP Primary Care Provider [phone] Encounter Details Date Type Department Care Team (Late st Contact Info) Description 09/08/2011 Documentation [facility] [place] [address] [place] [address] Family Medicine, Physician [address] [place] [address] Social History Tobacco Use Types Packs/Day Years [...] on filedocumented in this encounter Care Teams Html Web Developer Relationship Specialty Start Date End Date Lora Mims NP [address] [place] [address] PCP - General Pediatrics 01/01/21 documented as of this encounter
--- OUTSIDE RECORDS SUMMARY | 2024-11-14 18:20 | XMS_ITS | Encounter Summary ---
Author Organization [facility] Address [address] [place] [address] Phone Care Team Providers Care Sponge Maker Name Role Phone Lora Mims NP Primary Care Provider [phone] Encounter Details Date Type Department Care Team (Late st Contact Info) Description 07/15/2011 Documentation [facility] [place] Medicine [address] [place] [address] Family Medicine, Physician [address] [place] [address] Social History Tobacco Use Types Packs/Day Years [...] on filedocumented in this encounter Care Teams Sponge Maker Relationship Specialty Start Date End Date Lora Mims NP [address] [address] [place] [address] PCP - General Pediatrics 01/01/21 documented as of this encounter
--- OUTSIDE RECORDS SUMMARY | 2024-11-14 18:20 | XMS_ITS | Clinical Summary ---
Author Organization [facility] Address [address] [place] [address] Phone Care Team Providers Care Strategic Business Development Name Role Phone Lora Mims COLLIN Primary Care Provider [phone] Allergies No known active allergies Medications fluticasone 50 MCG/ACT nasal spray Dose Amount: 1 spray, Nasal, daily, Special Instructions: to each nostril, Dispense Quantity: 1 EA, Refills: 11, Entered: 12/04/20 12:28:00 EDT, [facility]/pharmacy #[id number] 1 Active tretinoin 0.025 % cream Dose Amount: 1 appl, TOP, bedtime, Special Instructions: apply as tolerated, Dispense Quantity: 45 g, Refills: 1, Entered: 09/29/20 15:31:00 EST, [facility]/pharmacy #[id number] 1 Active norgestimate-eth inyl estradiol 0.25-35 MG-MCG per tablet Dose Amount: 1 tab, PO, daily, Special Instructions: 28 day (cyclic), Dispense Quantity: 84 tab, Refills: 6, Entered: 03/05/21 11:58:00 EDT, [facility]/pharmacy #[id number] 1 Active loratadine (Claritin) 10 MG [...] Assessment & Plan (10/30/2021 8:45 AM EST): Pvwe-vabe-rwbwu disease ([place]) ?? This illness is caused [...] treated for sinus headaches by ENT at [facility] Assessment & Plan (05/03/2021 9:56 PM EDT): DOS: 04/16/21 Dr Hsieh Dx: Chronic headaches, H/O epilepsy and resolved left sphenoid sinusitis. F/U with Neuro for headaches. No f/u scheduled. 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 They also treat her for insulin resistance with metformin per pt Will request routine labs from them Acanthosis nigricans 05/14/2019 Acne vulgaris 05/14/2019 Obstructive sleep apnea syndrome 11/15/2018 Overview (05/03/2021): Added by [facility] Added by [facility] Epilepsy 11/27/2017 Overview (05/03/2021): Seizure(s) (780.39) Onset: 11/27/2017 Added by: Betty Carvalho Added by [facility] Assessment & Plan (06/20/2022 3:02 PM EDT): [...] 05/15/2017 Added by: Linda Cavazos Added by [facility] Added by [facility] Assessment & Plan (06/20/2022 3:02 PM EDT): Has worked with cadence specialists/weight loss programs in the past Feeling very overwhelmed lately Discussed concerns regarding weight 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 Has lost 4 lbs since last visit. Have encouraged her to continue program. Immunizations Immunization Administration Dates Next Due DTaP 5 02/16/2007, [...] PM EDT) Chlamydia Trachomatis, Amplified NEGATIVE (NEG) [facility] Comment: No Chlamydia Trachomatis RNA detected in this patient's sample ? (REFERENCE RANGE/NORMAL VALUE: NOT DETECTED) ? Note: This test uses lay out machine operator- mediated amplification method to detect rRNA from C. Trachomatis N.GONORRHOEAE AMP PROBE NEGATIVE (NEG) [facility] Comment: No Neisseria Gonorrhoeae RNA detected in this patient's sample ? (REFERENCE RANGE/NORMAL VALUE: NOT DETECTED) ? NOTE: This test uses lay out machine operator-mediated amplification method to detect rRNA from N.Gonorrhoeae. [...] without risk of sexual abuse. Consult the [facility] if needed. Contact [...] CHLAM/GC AMP PROBE SPEC TYPE VAGINAL SPECIMEN [facility] Comment: Testing performed or reported by [facility], a Service of [facility], [address] [place] [address] [place] [address] Cortes Franco MD, Digital Strategy Manager [facility]# [id number] Swab (Vagina) 06/20/2022 2:1 5 PM EDT 06/21/2022 8:34 AM EDT Lora Mims NP LAB MICROBIOLOGY - GENERAL ORDER KARINA Final Result [facility] from Last 3 Months or Most Recently Relevant to [place] [id number] [facility] [employer] [facility] Care Teams Strategic Business Development Relationship Specialty Start Date End Date Lora Mims NP [address] [facility] [place] [address] PCP - General Pediatrics 01/01/21
--- OUTSIDE RECORDS SUMMARY | 2024-11-14 18:20 | XMS_ITS | Encounter Summary ---
Author Organization [facility] Address [address] [place] [address] Phone Care Team Providers Care Associate Property Manager Name Role Phone Lora Mims NP Primary Care Provider [phone] Encounter Details Date Type Department Care Team (Late st Contact Info) Description 08/22/2011 Documentation [facility] [place] [address] [place] [address] Family Medicine, Physician [address] [place] [address] Social History Tobacco Use Types Packs/Day Years [...] on filedocumented in this encounter Care Teams Associate Property Manager Relationship Specialty Start Date End Date Lora Mims NP [address] [facility] [address] [place] [address] PCP - General Pediatrics 01/01/21 documented as of this encounter
--- OUTSIDE RECORDS SUMMARY | 2024-11-14 18:20 | XMS_ITS | Encounter Summary ---
Author Organization [facility] Address [address] [place] [address] Phone Care Team Providers Care Barometers Calibrator Name Role Phone Lora Mims NP Primary Care Provider [phone] Encounter Details Date Type Department Care Team (Late st Contact Info) Description 01/08/2010 [place]ation [facility] [place] [address] [place] [address] Family Medicine, Physician [address] [place] [address] Social History Tobacco Use Types Packs/Day Years [...] on filedocumented in this encounter Care Teams Barometers Calibrator Relationship Specialty Start Date End Date Lora Mims NP [address] [facility] [address] [place] [address] PCP - General Pediatrics 01/01/21 documented as of this encounter
--- OUTSIDE RECORDS SUMMARY | 2024-11-14 18:20 | XMS_ITS | Encounter Summary ---
Author Organization [facility] Address [address] [place] [address] Phone Care Team Providers Care Tube Closing Machine Operator Name Role Phone Lora Mims NP Primary Care Provider [phone] Encounter Details Date Type Department Care Team (Late st Contact Info) Description 11/04/2010 Documentation [facility] [place] [address] [place] [address] Family Medicine, Physician [address] [place] [address] Social History Tobacco Use Types Packs/Day Years [...] on filedocumented in this encounter Care Teams Tube Closing Machine Operator Relationship Specialty Start Date End Date Lora Mims NP [address] [facility] [facility] [address] [place] [address] PCP - General Pediatrics 01/01/21 documented as of this encounter
--- OUTSIDE RECORDS SUMMARY | 2024-11-14 18:20 | XMS_ITS | Encounter Summary ---
Author Organization [facility] Address [address] [place] [address] Phone Care Team Providers Care Facility Attendant Name Role Phone Lora Mims NP Primary Care Provider [phone] Encounter Details Date Type Department Care Team (Late st Contact Info) Description 10/17/2011 Documentation [facility] [place] Medicine [address] [place] [address] Family Medicine, Physician [address] [place] [address] Social History Tobacco Use Types Packs/Day Years [...] on filedocumented in this encounter Care Teams Facility Attendant Relationship Specialty Start Date End Date Lora Mims NP [address] [facility] [address] [place] [address] PCP - General Pediatrics 01/01/21 documented as of this encounter
--- OUTSIDE RECORDS SUMMARY | 2024-11-14 18:20 | XMS_ITS | Encounter Summary ---
Author Organization [facility] Address [address] [place] [address] Phone Care Team Providers Care Director Nursery School Name Role Phone Lora Mims NP Primary Care Provider [phone] Encounter Details Date Type Department Care Team (Late st Contact Info) Description 02/16/2012 Conversion Encounter [facility] [address] [facility] [place] [address] Social History Tobacco Use Types Packs/Day Years [...] on filedocumented in this encounter Care Teams Director Nursery School Relationship Specialty Start Date End Date Lora Mims NP [address] [facility] [place] [address] PCP - General Pediatrics 01/01/21 documented as of this encounter
--- OUTSIDE RECORDS SUMMARY | 2024-11-14 18:20 | XMS_ITS | Encounter Summary ---
Author Organization [facility] Address [address] [place] [address] Phone Care Team Providers Care Tool Marker Name Role Phone Lora Mims NP Primary Care Provider [phone] Encounter Details Date Type Department Care Team (Late st Contact Info) Description 08/15/2011 Documentation [facility] [place] Family Medicine [address] [place] [address] Family Medicine, Physician [address] [place] [address] Social History Tobacco Use Types Packs/Day Years [...] on filedocumented in this encounter Care Teams Tool Marker Relationship Specialty Start Date End Date Lora Mims NP [address] [address] [place] [address] PCP - General Pediatrics 01/01/21 documented as of this encounter
--- OUTSIDE RECORDS SUMMARY | 2024-11-14 18:20 | XMS_ITS | Encounter Summary ---
Author Organization [facility] Address [address] [place] [address] Phone Care Team Providers Care Telephone Mechanic Name Role Phone Lora Mims NP Primary Care Provider [phone] Encounter Details Date Type Department Care Team (Late st Contact Info) Description 08/29/2011 Documentation [facility] [place] Family Medicine [address] [place] [address] Family Medicine, Physician [address] [place] [address] Social History Tobacco Use Types Packs/Day Years [...] on filedocumented in this encounter Care Teams Telephone Mechanic Relationship Specialty Start Date End Date Lora Mims NP [address] [facility] [address] [place] [address] PCP - General Pediatrics 01/01/21 documented as of this encounter
--- OUTSIDE RECORDS SUMMARY | 2024-11-14 18:20 | XMS_ITS | Encounter Summary ---
Author Organization [facility] Address [address] [place] [address] Phone Care Team Providers Care Miner Operator Name Role Phone Lora Mims NP Primary Care Provider [phone] Reason for Visit * Reason Comments Med Refill Encounter Details Date Type Department Care Team (Late st Contact Info) Description 11/26/2022 Refill [facility] [address] [place] [address] Lora Mims NP [address] [place] [address] Moderate episode of recurrent major depressive disorder [...] disorder documented in this encounter Care Teams Miner Operator Relationship Specialty Start Date End Date Lora Mims NP [address] [place] [address] PCP - General Pediatrics 01/01/21 documented as of this encounter
--- OUTSIDE RECORDS SUMMARY | 2024-11-14 18:20 | XMS_ITS | Encounter Summary ---
Author Organization [facility] Address [address] [place] [address] Phone Care Team Providers Care Epic Anesthesia Analyst Name Role Phone Lora Mims NP Primary Care Provider [phone] Encounter Details Date Type Department Care Team (Late st Contact Info) Description 08/09/2011 Documentation [facility] [place] Family Medicine [address] [place] [address] Family Medicine, Physician [address] [place] [address] Social History Tobacco Use Types Packs/Day Years [...] on filedocumented in this encounter Care Teams Epic Anesthesia Analyst Relationship Specialty Start Date End Date Lora Mims NP [address] [place] [address] PCP - General Pediatrics 01/01/21 documented as of this encounter
--- OUTSIDE RECORDS SUMMARY | 2024-11-14 18:20 | XMS_ITS | Encounter Summary ---
Author Organization [facility] Address [address] [place] [address] Phone Care Team Providers Care Blow Mold Technician Name Role Phone Lora Mims NP Primary Care Provider [phone] Encounter Details Date Type Department Care Team (Late st Contact Info) Description 10/04/2011 Documentation [facility] [place] [address] [place] [address] Family Medicine, Physician [address] [place] [address] Social History Tobacco Use Types Packs/Day Years [...] on filedocumented in this encounter Care Teams Blow Mold Technician Relationship Specialty Start Date End Date Lora Mims NP [address] [facility] [address] [place] [address] PCP - General Pediatrics 01/01/21 documented as of this encounter
--- OUTSIDE RECORDS SUMMARY | 2024-11-14 18:20 | XMS_ITS | Encounter Summary ---
Author Organization [facility] Address [address] [place] [address] Phone Care Team Providers Care E M Assembler Name Role Phone Lora Mims NP Primary Care Provider [phone] Encounter Details Date Type Department Care Team (Late st Contact Info) Description 04/07/2010 Documentation [facility] [place] Medicine [address] [place] [address] Family Medicine, Physician [address] [place] [address] Social History Tobacco Use Types Packs/Day Years [...] on filedocumented in this encounter Care Teams E M Assembler Relationship Specialty Start Date End Date Lora Mims NP [address] [facility] [address] [place] [address] PCP - General Pediatrics 01/01/21 documented as of this encounter
--- OUTSIDE RECORDS SUMMARY | 2024-11-14 18:20 | XMS_ITS | Encounter Summary ---
Author Organization [facility] Address [address] [place] [address] Phone Care Team Providers Care Digital Content Specialist Name Role Phone Lora Mims NP Primary Care Provider [phone] Encounter Details Date Type Department Care Team (Late st Contact Info) Description 08/31/2011 Documentation [facility] [place] [address] [place] [address] Family Medicine, Physician [address] [place] [address] Social History Tobacco Use Types Packs/Day Years [...] on filedocumented in this encounter Care Teams Digital Content Specialist Relationship Specialty Start Date End Date Lora Mims NP [address] [facility] [address] [place] [address] PCP - General Pediatrics 01/01/21 documented as of this encounter
--- OUTSIDE RECORDS SUMMARY | 2024-11-14 18:20 | XMS_ITS | Encounter Summary ---
Author Organization [facility] Address [address] [place] [address] Phone Care Team Providers Care Hot Box Checker Name Role Phone Lora Mims NP Primary Care Provider [phone] Encounter Details Date Type Department Care Team (Late st Contact Info) Description 09/01/2011 [place] [facility] [place] [address] [place] [address] Family Medicine, Physician [address] [place] [address] Social History Tobacco Use Types Packs/Day Years [...] on filedocumented in this encounter Care Teams Hot Box Checker Relationship Specialty Start Date End Date Lora Mims NP [address] [facility] [address] [place] [address] PCP - General Pediatrics 01/01/21 documented as of this encounter
--- OUTSIDE RECORDS SUMMARY | 2024-11-14 18:20 | XMS_ITS | Encounter Summary ---
Author Organization [facility] Address [address] [place] [address] Phone Care Team Providers Care News Production Supervisor Name Role Phone Lora Mims NP Primary Care Provider [phone] Encounter Details Date Type Department Care Team (Late st Contact Info) Description 11/30/2009 Documentation [facility] [place] Family Medicine [address] [place] [address] Family Medicine, Physician [address] [place] [address] Social History Tobacco Use Types Packs/Day Years [...] on filedocumented in this encounter Care Teams News Production Supervisor Relationship Specialty Start Date End Date Lora Mims NP [address] [facility] [address] [place] [address] PCP - General Pediatrics 01/01/21 documented as of this encounter
--- OUTSIDE RECORDS SUMMARY | 2024-11-14 18:20 | XMS_ITS | Encounter Summary ---
Author Organization [facility] Address [address] [place] [address] Phone Care Team Providers Care Customer Service Representative Teacher Name Role Phone Lora Mims NP Primary Care Provider [phone] Encounter Details Date Type Department Care Team (Late st Contact Info) Description 01/30/2012 [place] [facility] [place] [address] [place] [address] Family Medicine, Physician [address] [place] [address] Social History Tobacco Use Types Packs/Day Years [...] on filedocumented in this encounter Care Teams Customer Service Representative Teacher Relationship Specialty Start Date End Date Lora Mims NP [address] [facility] [address] [place] [address] PCP - General Pediatrics 01/01/21 documented as of this encounter
--- OUTSIDE RECORDS SUMMARY | 2024-11-14 18:20 | XMS_ITS | Encounter Summary ---
Author Organization [facility] Address [address] [place] [address] Phone Care Team Providers Care Desizing Machine Operator Name Role Phone Lora Mims NP Primary Care Provider [phone] Encounter Details Date Type Department Care Team (Late st Contact Info) Description 07/20/2011 Documentation [facility] [place] [address] [place] [address] Family Medicine, Physician [address] [place] [address] Social History Tobacco Use Types Packs/Day Years [...] on filedocumented in this encounter Care Teams Desizing Machine Operator Relationship Specialty Start Date End Date Lora Mims NP [address] [facility] [address] [place] [address] PCP - General Pediatrics 01/01/21 documented as of this encounter
--- OUTSIDE RECORDS SUMMARY | 2024-11-14 18:20 | XMS_ITS | Encounter Summary ---
Author Organization [facility] Address [address] [place] [address] Phone Care Team Providers Care Lens Finisher Name Role Phone Lora Mims NP Primary Care Provider [phone] Encounter Details Date Type Department Care Team (Late st Contact Info) Description 12/17/2009 Documentation [facility] [place] Medicine [address] [place] [address] Family Medicine, Physician [address] [place] [address] Social History Tobacco Use Types Packs/Day Years [...] on filedocumented in this encounter Care Teams Lens Finisher Relationship Specialty Start Date End Date Lora Mims NP [address] [facility] [address] [place] [address] PCP - General Pediatrics 01/01/21 documented as of this encounter
== END 2024-11-14 15:42 | disposition home or self-care (01) ==
PROVIDERS: PCP Internal Medicine; Visit Provider Physician Assistant
DX: F41.8 Other specified anxiety disorders (principal); E28.2 Polycystic ovarian syndrome; K76.0 Fatty (change of) liver, not elsewhere classified

== ENCOUNTER → 2024-11-14 15:01 | Outpatient (BNVA) | payer OTHER, SELFPAY | PROVIDERS: PCP Internal Medicine; Visit Provider Physician Assistant | DX: F41.8 Other specified anxiety disorders (principal); E28.2 Polycystic ovarian syndrome; K76.0 Fatty (change of) liver, not elsewhere classified | CPT/HCPCS: 99212 ==

== ENCOUNTER 2025-02-19 13:27 | Outpatient (AMB) | payer OTHER, SELFPAY ==
--- NOTE | 2025-02-19 13:40 | MHC.PC.OV ---
Vital Signs 02/19/25 13:46 02/19/25 13:51 Height 5 ft 4.95 in Weight 327 lb BMI 54.5 BP 140/73 H 144/65 H Blood Pressure Location Rt brachial Rt brachial Position Sitting Sitting Respiration 16 Pulse 108 H Pulse Source Pulse Oximeter Pulse Oximetry (%) 98 Oxygen Delivery Method Room Air Intake Visit Reasons: medication review Intake Note: Medication follow up Combination Welder Apprentice Required: No Allergies No Known Allergies Allergy (Verified 02/19/25 13:42) Medication List - Last Reconciled 02/19/25 by Deanna Head PA-C [id number] 50-300-40 mg (Fioricet) 1 cap PO Q8H PRN 3 days fluticasone propionate 50 mcg/actuation (Flonase Allergy Relief) 2 sprays intranasal DAILY hydroxyzine HCl 25 mg PO Q8H PRN 90 days metformin ER 500 mg PO DAILY sertraline 100 mg PO DAILY Tobacco use date assessed: 02/19/25 Dental Screening Dental Screen Date: 02/19/25 Did you have a dental visit in the last 12 months?: No Did you have a dental problem in the last 6 months where you did not have access to dental care?: No Was dental information given to patient?: Patient declined HPI medication review HPI Details The patient is a 20-year-old female presenting for a follow-up. Pysch: She is currently on sertraline 100 mg daily and feeling well with this. She uses hydroxyzine if absolutely needed. 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 This year she was actually able to go to her for school dance and have the confidence to go out more. 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 She states that in the past she has been on spironolactone for her PCOS but that made her feel nauseous and spacey. She was on metformin years ago and recently I did restart her on this. She had has not noticed any real improvement of improvement of her menstrual cycle and PCOS symptoms. She does continue to gain weight. GI: She does have persistently elevated LFTs and was referred in the past to GI. Has not yet seen them. She did have an abdominal ultrasound which was consistent with fatty liver. She has seen a enlisted aircrew/aerial observer/gunner in the past and would be open to going again. She has tried diets in the past without significant improvement. CV: Her blood pressure today is elevated. No history of hypertension. 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 Current occupational exposures/hazards: No Cognitive needs: No Hearing needs: No Vision needs: No Questionnaire Thrive Questionnaire Date Thrive assessed: 10/02/24 I am a: Patient What is your living situation today?: I have a steady place to live Within the past 12 months, did the food you bought not last and you didn't have the money to get more?: I choose not to answer this question Within the past 12 months, did you worry whether your food would run out before you got money to buy more?: I choose not to answer this question Do you have trouble paying for medicines?: I choose not to answer this question Do you have trouble getting transportation to medical appointments?: No Do you have trouble paying your heating and electricity bill?: I choose not to answer this question Do you have trouble taking care of your child, family member or friend?: I choose not to answer this question Do you have trouble with day-to-day activities such as bathing, preparing meals, shopping, managing finances, etc.?: I choose not to answer this question Are you currently unemployed and looking for a job?: I choose not to answer this question Are you interested in more education?: I choose not to answer this question Please select the resources that you would like help with: None Currently or been in a relationship where the following occur: I choose not to answer THRIVE Score: 0 LENORA-7 AMB Questionnaire LENORA-7 Date LENORA - 7 assessed: 10/02/24 Source: Developed by Drs. River Villanueva, Milagro Ramírez, Elai Banks and colleagues, with an educational reji from [employer]. Physical exam (Primary Care) Vital Signs: Last Vital Signs Pulse 108 H 02/19/25 13:46 Resp 16 02/19/25 13:46 BP 144/65 H 02/19/25 13:51 Pulse Ox 98 02/19/25 13:46 Oxygen Delivery Method Room Air 02/19/25 13:46 BMI result Body Mass Index 54.5 Tobacco/Smoking Status: Tobacco use Status Tobacco use date assessed 02/19/25 02/19/25 13:44 Patient Tobacco Use Status Never used Tobacco 02/19/25 13:48 e-Cigarette/Vaping Use Never Used 02/19/25 13:48 Thrive Assessment: Date of Thrive Assessment Date Thrive assessed 10/02/24 02/19/25 13:41 Currently or been in a relationship where the following occur: I choose not to answer Const Orientation/consciousness: patient oriented x3 HENMT Ears: hearing grossly normal bilaterally Neck Thyroid: Thyroid normal Lymphatic: no lymphadenopathy noted Resp Auscultation: clear to auscultation bilaterally Cardio Rate: regular rate Rhythm: regular rhythm Heart sounds: S1 normal heart sound present and S2 normal heart sound present GI Inspection: Yes normal to inspection Palpation (GI): Soft to palpation and Other GI palpation findings present (nontender, no cva tenderness) Auscultation: normoactive bowel sounds Rectal Exam - Female: deferred Skin General skin exam: no rashes or lesions noted Neuro General: patient oriented x3, gait normal and no focal motor deficits Coding Level of Care Code Est Pt Level 4 (26583) Complex EM visit Add On G2211 Diagnoses PCOS (polycystic ovarian syndrome) E28.2 Insulin resistance E88.819 Fatty liver K76.0 Elevated blood pressure reading in office without diagnosis of hypertension R03.0 Class 3 severe obesity with body mass index (BMI) of 50.0 to 59.9 in adult E66.813; Z68.43 Assessment & Plan Assessment & Plan (1) PCOS (polycystic ovarian syndrome): Code(s): E28.2 - Polycystic ovarian syndrome Category: Medical Plan: Has an appointment with OBGYN. Currently on metformin. (2) Insulin resistance: Code(s): E88.819 - Insulin resistance, unspecified Category: Medical Plan: will try wegovy. Discussed risks and benefits and adverse effects of this medication (3) Fatty liver: Code(s): K76.0 - Fatty (change of) liver, not elsewhere classified Category: Medical Plan: as above. Has been referred to GI (4) Elevated blood pressure reading in office without diagnosis of hypertension: Code(s): R03.0 - Elevated blood-pressure reading, without diagnosis of hypertension Category: Medical Plan: We will recheck in a few weeks. States it is related to the stress of coming from the preschool before coming here. (5) Class 3 severe obesity with body mass index (BMI) of 50.0 to 59.9 in adult: Code(s): E66.813 - Obesity, class 3; Z68.43 - Body mass index [BMI] 50.0-59.9, adult Category: Medical Plan: As above. Referral to enlisted aircrew/aerial observer/gunner. We will try Wegovy. Orders: Orders Basic Metabolic Panel Today E28.2 - Polycystic ovarian syndrome, E66.813 - Obesity, class 3, E88.819 - Insulin resistance, unspecified, K76.0 - Fatty (change of) liver, not elsewhere classified, R03.0 - Elevated blood-pressure reading, without diagnosis of hypertension, Z68.43 - Body mass index [BMI] 50.0-59.9, adult Hemoglobin A1c Today E28.2 - Polycystic ovarian syndrome, E66.813 - Obesity, class 3, E88.819 - Insulin resistance, unspecified, K76.0 - Fatty (change of) liver, not elsewhere classified, R03.0 - Elevated blood-pressure reading, without diagnosis of hypertension, R73.01 - Impaired fasting glucose, Z68.43 - Body mass index [BMI] 50.0-59.9, adult Liver Panel Today E28.2 - Polycystic ovarian syndrome, E66.813 - Obesity, class 3, E88.819 - Insulin resistance, unspecified, K76.0 - Fatty (change of) liver, not elsewhere classified, R03.0 - Elevated blood-pressure reading, without diagnosis of hypertension, Z68.43 - Body mass index [BMI] 50.0-59.9, adult Referrals Nutrition/Dietitian Referral E28.2 - Polycystic ovarian syndrome, E66.01 - Morbid (severe) obesity due to excess calories, E88.819 - Insulin resistance, unspecified, K76.0 - Fatty (change of) liver, not elsewhere classified Medications: New semaglutide (weight loss) (Wegovy) 0.25 mg (0.5 mL) subcut QWEEK 2 mL 3RF
--- OUTSIDE RECORDS SUMMARY | 2025-02-19 13:42 | XMS_ITS | Encounter Summary ---
Author Organization [facility] Address [address] [place] [address] Phone Care Team Providers Care Link Trainer Name Role Phone Lora Mims NP Primary Care Provider [phone] Encounter Details Date Type Department Care Team (Late st Contact Info) Description 11/04/2010 Documentation [facility] Family Medicine [address] [place] [address] Family Medicine, Physician [address] [place] [address] Social History Tobacco Use Types Packs/Day Years [...] on filedocumented in this encounter Care Teams Link Trainer Relationship Specialty Start Date End Date Lora Mims NP [address] [facility] [address] [place] [address] PCP - General Pediatrics 01/01/21 documented as of this encounter
[2025-02-19 13:46] VITALS: BP 140/73; PULSE 108; RESP 16; O2SAT 98; BMI 54.5
[2025-02-19 13:51] VITALS: BP 144/65
== END 2025-02-19 14:08 | disposition home or self-care (01) ==
LOC: HO.HMCFM 13:31
PROVIDERS: PCP Internal Medicine; Visit Provider Physician Assistant
DX: E28.2 Polycystic ovarian syndrome (principal); E88.819 Insulin resistance, unspecified; E66.813 Obesity, class 3; Z68.43 Body mass index [BMI] 50.0-59.9, adult; K76.0 Fatty (change of) liver, not elsewhere classified; R03.0 Elevated blood-pressure reading, without diagnosis of hypertension

== ENCOUNTER → 2025-02-19 13:27 | Outpatient (BNVA) | payer OTHER, SELFPAY | PROVIDERS: PCP Internal Medicine; Visit Provider Physician Assistant | DX: Z13.89 Encounter for screening for other disorder (principal) | CPT/HCPCS: 99212 ==

== ENCOUNTER 2025-02-19 14:14 | Outpatient (REF) | payer OTHER, SELFPAY ==
[2025-02-19 18:23] LABS: Estimated Average Glucose 117 mg/dL; Hemoglobin A1c % 5.7 % (<6.0); Total Hemoglobin (HGBA1C) 3448.7298 umol/L
[2025-02-19 18:27] LABS: Alanine Aminotransferase 41 U/L (0-31); Albumin Level 4.4 g/dL (3.5-5.0); Alkaline Phosphatase 55 U/L (39-117); Anion Gap 12 (12-20); Aspartate Amino Transferase 33 U/L (5-31); Bilirubin Direct 0.1 mg/dL (0.0-0.5); Bilirubin Total 0.3 mg/dL (0.0-1.0); Blood Urea Nitrogen 9 mg/dL (9-16); Calcium 9.8 mg/dL (8.4-10.2); Carbon Dioxide 25 mmol/L (22-29); Chloride 107 mmol/L (96-108); Estimated Glomerular Filt Rate > 60; Glucose Random 155 mg/dL (60-115); Potassium 3.7 mmol/L (3.3-5.1); Sodium 140 mmol/L (135-145); Total Protein 7.9 g/dL (6.5-8.0)
== END 2025-02-19 14:15 | disposition home or self-care (01) ==
LOC: HO.WFDLDS 14:14
PROVIDERS: Visit Provider Physician Assistant
DX: Z68.43 Body mass index [BMI] 50.0-59.9, adult (principal); E66.813 Obesity, class 3; R03.0 Elevated blood-pressure reading, without diagnosis of hypertension; E28.2 Polycystic ovarian syndrome; E88.819 Insulin resistance, unspecified; K76.0 Fatty (change of) liver, not elsewhere classified
CPT/HCPCS: 36415; 80048; 80076; 83036; 99212

== ENCOUNTER 2025-04-09 12:35 | Outpatient (AMB) | payer OTHER, SELFPAY ==
--- NOTE | 2025-04-09 12:47 | MHC.PC.OV ---
Vital Signs 04/09/25 12:52 04/09/25 13:02 Height 5 ft 4.95 in Weight 329 lb 6 oz BMI 54.9 BP 149/81 H 136/71 Blood Pressure Location Lt brachial Lt brachial Position Sitting Sitting Respiration 16 Pulse 101 H Pulse Source Pulse Oximeter Temp 98.1 F Temp Source Oral Pulse Oximetry (%) 99 Oxygen Delivery Method Room Air Intake Visit Reasons: bp check, med check Intake Note: Follow up blood pressure check Rocket Motor Mechanic Required: No Allergies No Known Allergies Allergy (Verified 04/09/25 12:51) Tobacco use date assessed: 04/09/25 Dental Screening Dental Screen Date: 02/19/25 HPI bp check, med check HPI Details The patient is a 20-year-old female presenting for a follow-up. Pysch: She is currently on sertraline 100 mg daily and feeling well with this. She uses hydroxyzine if absolutely needed. 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 This year she was actually able to go to her for school dance and have the confidence to go out more. 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 She states that in the past she has been on spironolactone for her PCOS but that made her feel nauseous and spacey. She was on metformin years ago and recently I did restart her on this. She had has not noticed any real improvement of improvement of her menstrual cycle and PCOS symptoms. She does continue to gain weight. Her insurance states that they will covers that bound. We are waiting for the appeal. She has tried numerous pucj-zqi-smcgwaz supplements, Atkins, [place], low-calorie diet, low carb diet, and going to the gym. She is currently working on a diet but is not able to lose much weight. She has gained 2 lb since our last visit. GI: She does have persistently elevated LFTs and was referred in the past to GI. She did have an abdominal ultrasound which was consistent with fatty liver. She has seen a health insurance adjuster in the past and would be open to going again. She has tried diets in the past without significant improvement. CV: Her blood pressure has been elevated the last couple visits. 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 She is scheduled in May for an initial consult to arabic linguist. She states that this is very abnormal for her. She is getting some pain and lower abdominal bloating with this. States that she has never had a. Last her almost an entire month. 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 Current occupational exposures/hazards: No Cognitive needs: No Hearing needs: No Vision needs: No Questionnaire Thrive Questionnaire Date Thrive assessed: 10/02/24 I am a: Patient What is your living situation today?: I have a steady place to live Within the past 12 months, did the food you bought not last and you didn't have the money to get more?: I choose not to answer this question Within the past 12 months, did you worry whether your food would run out before you got money to buy more?: I choose not to answer this question Do you have trouble paying for medicines?: I choose not to answer this question Do you have trouble getting transportation to medical appointments?: No Do you have trouble paying your heating and electricity bill?: I choose not to answer this question Do you have trouble taking care of your child, family member or friend?: I choose not to answer this question Do you have trouble with day-to-day activities such as bathing, preparing meals, shopping, managing finances, etc.?: I choose not to answer this question Are you currently unemployed and looking for a job?: I choose not to answer this question Are you interested in more education?: I choose not to answer this question Please select the resources that you would like help with: None Currently or been in a relationship where the following occur: I choose not to answer THRIVE Score: 0 AUDIT C Alcohol Use Questionnaire (AUDIT-C) 1. How often do you have a drink containing alcohol?: Monthly or less (3-4 times a year) 2. How many drinks containing alcohol do you have on a typical day when you are drinking?: 1 or 2 3. How often do you have six or more drinks on one occasion?: Never Total Score: 1 LENORA-7 AMB Questionnaire LENORA-7 Date LENORA - 7 assessed: 10/02/24 Source: Developed by Drs. River Villanueva, Milagro Ramírez, Elia Banks and colleagues, with an educational reji from [employer]. Physical exam (Primary Care) Vital Signs: Last Vital Signs Temp 98.1 F 04/09/25 12:52 Pulse 101 H 04/09/25 12:52 Resp 16 04/09/25 12:52 BP 136/71 04/09/25 13:02 Pulse Ox 99 04/09/25 12:52 Oxygen Delivery Method Room Air 04/09/25 12:52 BMI result Body Mass Index 54.9 Tobacco/Smoking Status: Tobacco use Status Tobacco use date assessed 04/09/25 04/09/25 12:55 Patient Tobacco Use Status Never used Tobacco 04/09/25 13:02 e-Cigarette/Vaping Use Never Used 04/09/25 13:02 Thrive Assessment: Date of Thrive Assessment Date Thrive assessed 10/02/24 04/09/25 12:48 Currently or been in a relationship where the following occur: I choose not to answer Const Orientation/consciousness: patient oriented x3 HENMT Ears: hearing grossly normal bilaterally Neck Thyroid: Thyroid normal Lymphatic: no lymphadenopathy noted Resp Auscultation: clear to auscultation bilaterally Cardio Rate: regular rate Rhythm: regular rhythm Heart sounds: S1 normal heart sound present and S2 normal heart sound present GI Inspection: Yes normal to inspection Palpation (GI): Soft to palpation and Other GI palpation findings present (nontender, no cva tenderness) Auscultation: normoactive bowel sounds Rectal Exam - Female: deferred Skin General skin exam: no rashes or lesions noted Neuro General: patient oriented x3, gait normal and no focal motor deficits Coding Level of Care Code Est Pt Level 4 (46869) Complex EM visit Add On G2211 Diagnoses PCOS (polycystic ovarian syndrome) E28.2 Elevated LFTs R79.89 Elevated blood pressure reading in office without diagnosis of hypertension R03.0 Menorrhagia with irregular cycle N92.1 Assessment & Plan Assessment & Plan (1) PCOS (polycystic ovarian syndrome): Code(s): E28.2 - Polycystic ovarian syndrome Category: Medical Plan: has an appointment with arabic linguist in May (2) Elevated LFTs: Code(s): R79.89 - Other specified abnormal findings of blood chemistry Category: Medical Plan: has fatty liver encouraged weight loss and lifestyle modifications was referred to GI in Oct (3) Elevated blood pressure reading in office without diagnosis of hypertension: Code(s): R03.0 - Elevated blood-pressure reading, without diagnosis of hypertension Category: Medical Plan: will start hctz discussed risks and benefits and adverse effects such as increased urination and low potassium (4) Menorrhagia with irregular cycle: Code(s): N92.1 - Excessive and frequent menstruation with irregular cycle Category: Medical Plan: labs and pelvic u/s ordered has appointment with arabic linguist Orders: Orders TSH reflex Free T4 Today E28.2 - Polycystic ovarian syndrome, N92.1 - Excessive and frequent menstruation with irregular cycle, R03.0 - Elevated blood-pressure reading, without diagnosis of hypertension, R79.89 - Other specified abnormal findings of blood chemistry Comprehensive Met. Panel Today E28.2 - Polycystic ovarian syndrome, N92.1 - Excessive and frequent menstruation with irregular cycle, R03.0 - Elevated blood-pressure reading, without diagnosis of hypertension, R79.89 - Other specified abnormal findings of blood chemistry US pelvic and transvaginal Today E28.2 - Polycystic ovarian syndrome, N92.1 - Excessive and frequent menstruation with irregular cycle, R03.0 - Elevated blood-pressure reading, without diagnosis of hypertension, R79.89 - Other specified abnormal findings of blood chemistry Complete Blood Count Auto Diff Today E28.2 - Polycystic ovarian syndrome, N92.1 - Excessive and frequent menstruation with irregular cycle, R03.0 - Elevated blood-pressure reading, without diagnosis of hypertension, R79.89 - Other specified abnormal findings of blood chemistry Hemoglobin A1c Today R73.01 - Impaired fasting glucose Medications: New hydrochlorothiazide 25 mg PO QAM 90 tabs 0RF Discontinued semaglutide (weight loss) (Ava) Discontinued Reason: Doctor's Order 0.25 mg (0.5 mL) subcut QWEEK 2 mL 3RF
[2025-04-09 12:52] VITALS: BP 149/81; PULSE 101; RESP 16; TEMP 36.7; O2SAT 99; BMI 54.9
--- OUTSIDE RECORDS SUMMARY | 2025-04-09 12:59 | XMS_ITS | Encounter Summary ---
Author Organization [facility] Address [address] [place] [address] Phone Care Team Providers Care Nanofabrication Specialist Name Role Phone Lora Mims NP Primary Care Provider Encounter Details Date Type Department Care Team (Late st Contact Info) Description 11/04/2010 Documentation [facility] [place] [address] [place] [address] Family Medicine, Physician [address] [place] [address] Social History Tobacco Use Types Packs/Day Years [...] on filedocumented in this encounter Care Teams Nanofabrication Specialist Relationship Specialty Start Date End Date Lora Mims NP [address] [place] [address] PCP - General Pediatrics 01/01/21 documented as of this encounter
--- OUTSIDE RECORDS SUMMARY | 2025-04-09 12:59 | XMS_ITS | Clinical Summary ---
Author Organization [facility] Address [address] [place] [address] Phone Care Team Providers Care Rand Maker Name Role Phone Abilio Moss MD Primary Care Provider [phone] Abilio Moss MD Unavailable Abilio Moss MD Unavailable Medications * This document contains information received from the source organization and may not represent a complete record from that organization. norgestimate-et hinyl estradioL (Sprintec, 28,) 0.25-35 mg-mcg tablet Dose Amount: 1 tab, PO, daily, Special Instructions: 28 day (cyclic), Dispense Quantity: 84 tab, Refills: 10, Entered: 04/06/22 14:25:00 EDT, [facility]/pharmacy #[id number] 04/06/2022 Active fluticasone (Flonase Allergy Relief) 50 mcg/spray nasal spray Dose Amount: 1 spray, Nasal, daily, Special Instructions: to each nostril, Dispense Quantity: 1 EA, Refills: 11, Entered: 12/04/20 12:28:00 EDT, [facility]/pharmacy #[id number] 12/04/2020 Active hydrALAZINE (Apresoline) 25 mg tablet mg, tab, PO, daily, Entered: 11/11/22 11:55:00 EST 11/11/2022 Active midazolam (Nayzilam) 5 mg/spray (0.1 mL) spray,non-aeros ol See Instructions, Special Instructions: 1 spray (5mg) per nare for a total dose of 10mg PRN seizures greater than 5 minutes., Dispense Quantity: 2 kit, Refills: 0, Entered: 09/08/20 16:13:00 EST, [facility]/pharmacy #[id number] 09/08/2020 Active sertraline (Zoloft) 50 mg tablet Dose: 50 mg, Dose Amount: 1 tab, PO, daily, Dispense Quantity: 30 tab, Entered: 11/11/22 11:52:00 EST 11/11/2022 Active Immunizations Immunization Administration Dates Next Due Pfizer Purple Cap SARS-CoV-2 08/26/2021,02/24/20,02/01/2021 Social History Tobacco Use Types Packs/Day Years Used Date Smoking Tobacco: Never Assessed Comments Unknown Sex and Gender Information Value Date Recorded Sex Assigned at Not on file Legal Sex Female 1:20 AM EDT Gender Identity Not on file Sexual Orientation Not on file Last Filed Vital Signs Vital Sign Reading Time Taken Comments Blood Pressure 118/71 11/22/2022 5:30 PM EST Pulse 76 11/22/2022 5:30 PM EST Temperature 36.7 C (98.1 F) 04/16/2021 2:22 PM EDT Respiratory Rate 14 11/22/2022 5:30 PM EST Oxygen Saturation 99% 11/22/2022 5:30 PM EST Inhaled Oxygen Concentration - - Weight 142 kg (313 lb 7.9 oz) 12/23/2022 3:08 PM EDT Height 166.7 cm (5' 5.63 ) 12/23/2022 3:08 PM ED T Body Mass Index 51.17 12/23/2022 3:08 PM EDT Plan of Treatment Health Maintenance Due Date Last Done Comments HIV Screening 2003 MMR Vaccines (1 of 1 - Standard series) 01/29/2004 DTaP/Tdap/Td Vaccines (1 - Tdap) 2010 Varicella Vaccines (1 of 2 - 13+ 2-dose series) 01/29/2016 HPV Vaccines (1 - 3-dose series) 2018 Meningococcal B Vaccine (1 o f 2 - Standard) 2019 Hepatitis C Screening 2021 Hepatitis B Vaccines (1 of 3 - 19+ 3-dose series) 2022 COVID-19 Vaccine (4 - 2023-2 5 season) 2024 08/26/2021, 02/23/2021, 02/01/2021 Influenza Vaccine (#1) 2025 06/20/2022 HIB Vaccines Aged Out No longer eligi ble based on patient's age to complete this topic Hepatitis A Vaccines Aged Out No long er eligible based on patient's age to complete this topic IPV Vaccines Aged Out No longer eligi ble based on patient's age to complete this topic Meningococcal Vaccine Aged Out No ruy keenan eligible based on patient's age to complete this topic Pneumococcal Vaccine: Pediatrics (0 to 5 Years) and At-Risk Patients (6 to 49 Years) Aged Out No longer eligible b ased on patient's age to complete this topic Rotavirus Vaccines Aged Out No longer eligible based on patient's age to complete this topic Medical Devices Implanted Type Area Air Grinder Device Identifier Shelf Expiration Date Model / Serial / Lot Floseal Matrix Sealant Implanted:Qty: 1 on 11/22/2022 by Narciso Hsieh MD Implant Bilateral : Nose / / [id number] Care Teams Rand Maker Relationship Specialty Start Date End Date Abilio Moss MD [address] [place] [id number] PCP - General 04/25/22 Abilio Moss MD [address] [place] [id number] PCP - Insurance PCP 04/09/21 Abilio Moss MD [address] [place] [id number] PCP - Clinical PCP 04/25/22
[2025-04-09 13:02] VITALS: BP 136/71
== END 2025-04-09 13:17 | disposition home or self-care (01) ==
LOC: HO.HMCFM 12:36
PROVIDERS: PCP Physician Assistant; Visit Provider Physician Assistant
DX: E28.2 Polycystic ovarian syndrome (principal); R79.89 Other specified abnormal findings of blood chemistry; R03.0 Elevated blood-pressure reading, without diagnosis of hypertension; N92.1 Excessive and frequent menstruation with irregular cycle

== ENCOUNTER → 2025-04-09 12:35 | Outpatient (BNVA) | payer OTHER, SELFPAY | PROVIDERS: PCP Physician Assistant; Visit Provider Physician Assistant | DX: E28.2 Polycystic ovarian syndrome (principal); R79.89 Other specified abnormal findings of blood chemistry; R03.0 Elevated blood-pressure reading, without diagnosis of hypertension; N92.1 Excessive and frequent menstruation with irregular cycle | CPT/HCPCS: 36415; 80053; 83036; 84443; 85025; 99212 ==

== ENCOUNTER 2025-04-09 13:20 | Outpatient (REF) | payer OTHER, SELFPAY ==
[2025-04-09 14:12] LABS: MANUAL DIFF FLAG NO
[2025-04-09 14:18] LABS: Hematocrit 38.0 % (37.0-47.0); Hemoglobin 12.7 g/dl (12.0-16.0); Imm Gran Abs Auto 0.02 X10*3/uL (0.00-0.03); Imm Gran Pct Auto 0.3 % (0.0-0.4); Lymphocytes Absolute Auto 1.8 X10*3/uL (1.2-4.9); Mean Corpuscular HGB Conc 33.4 g/dl (31.0-35.0); Mean Corpuscular Hemoglobin 28.2 pg (27.0-33.0); Mean Corpuscular Volume 84.3 fL (80.0-98.0); NRBC Abs Auto 0.000 X10*3/uL (0.0-0.012); NRBC Pct Auto 0.0 /100WBC (0.0-0.2); Platelet Count 326 X10*3/uL (160-400); Red Blood Count 4.51 X10*6/uL (4.20-5.50); White Blood Count 6.2 X10*3/uL (4.8-10.8)
[2025-04-09 14:27] LABS: Hemoglobin A1C 123.1667 umol/L; Total Hemoglobin (HGBA1C) 3290.7341 umol/L
[2025-04-09 14:39] LABS: Alanine Aminotransferase 56 U/L (0-31); Albumin Level 4.5 g/dL (3.5-5.0); Alkaline Phosphatase 52 U/L (39-117); Anion Gap 16 (12-20); Aspartate Amino Transferase 40 U/L (5-31); Blood Urea Nitrogen 11 mg/dL (9-16); Calcium 9.8 mg/dL (8.4-10.2); Carbon Dioxide 23 mmol/L (22-29); Chloride 106 mmol/L (96-108); Estimated Glomerular Filt Rate > 60; Potassium 3.7 mmol/L (3.3-5.1); Sodium 141 mmol/L (135-145); Total Protein 8.0 g/dL (6.5-8.0)
== END 2025-04-09 13:21 | disposition home or self-care (01) ==
LOC: HO.WFDLDS 13:20
PROVIDERS: Visit Provider Physician Assistant
DX: Z13.89 Encounter for screening for other disorder (principal)
CPT/HCPCS: 36415; 80053; 83036; 84443; 85025

== ENCOUNTER 2025-05-15 12:36 | Outpatient (AMB) | payer OTHER, SELFPAY ==
--- NOTE | 2025-05-15 12:50 | MHC.OFFVIS ---
Vital Signs 05/15/25 12:52 Height 5 ft 6 in Weight 333 lb BMI 53.7 BP 118/76 Blood Pressure Location Lt brachial Position Sitting Intake Visit Reasons: bp check Allergies No Known Allergies Allergy (Verified 04/09/25 12:51) Medication List - Last Reconciled 05/15/25 by Deanna Head PA-C [id number] 50-300-40 mg (Fioricet) 1 cap PO Q8H PRN 3 days fluticasone propionate 50 mcg/actuation (Flonase Allergy Relief) 2 sprays intranasal DAILY hydrochlorothiazide 25 mg PO QAM hydroxyzine HCl 25 mg PO Q8H PRN 90 days metformin ER 500 mg PO DAILY sertraline 100 mg PO DAILY PFSH Medical History (Updated 05/15/25 @ 13:04 by Deanna Head PA-C) Chronic sinusitis PCOS (polycystic ovarian syndrome) History of epilepsy Surgical History Hx of tonsillectomy H/O sinus surgery Social History (Updated 04/09/25 @ 13:02 by Hanna Aguayo CMA) Housing: House Alcohol intake: current Patient Tobacco Use Status: Never used Tobacco e-Cigarette/Vaping Use: Never Used Second Hand Smoke Exposure: No service: Yes 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 occupational status: employed and student 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 Current occupational exposures/hazards: No Cognitive needs: No Hearing needs: No Vision needs: No Physical Exam Const Orientation/consciousness: patient oriented x3 HEENT Ears: hearing grossly normal bilaterally Neck Thyroid: Thyroid normal Lymphatic: no lymphadenopathy noted Resp Auscultation: clear to auscultation bilaterally Cardio Rate: regular rate Rhythm: regular rhythm Heart sounds: S1 normal heart sound present and S2 normal heart sound present GI Inspection: Yes normal to inspection Palpation (GI): Soft to palpation and Other GI palpation findings present (nontender, no cva tenderness) Auscultation: normoactive bowel sounds Rectal Exam - Female: deferred Skin General skin exam: no rashes or lesions noted Neuro General: patient oriented x3, gait normal and no focal motor deficits Assessment & Plan Assessment & Plan (1) Elevated LFTs: Code(s): R79.89 - Other specified abnormal findings of blood chemistry Category: Medical Plan: We will monitor. Discussed the importance of weight loss (2) Class 3 severe obesity with body mass index (BMI) of 50.0 to 59.9 in adult: Code(s): E66.813 - Obesity, class 3; Z68.43 - Body mass index [BMI] 50.0-59.9, adult Category: Medical Plan: Insurance denied Zepbound. Wants patient to try phentermine 1st. I have ordered this. We discussed risks and benefits and adverse effects of this medication. (3) HTN (hypertension): Code(s): I10 - Essential (primary) hypertension Category: Medical Plan: Currently controlled with hydrochlorothiazide. Tolerating well. We will follow up to make sure that the phentermine does not elevate the blood pressure. Return in 4 weeks. Labs ordered. Orders: Orders Comprehensive Met. Panel Today E66.813 - Obesity, class 3, I10 - Essential (primary) hypertension, R79.89 - Other specified abnormal findings of blood chemistry, Z68.43 - Body mass index [BMI] 50.0-59.9, adult Hemoglobin A1c Today E66.813 - Obesity, class 3, I10 - Essential (primary) hypertension, R73.01 - Impaired fasting glucose, R79.89 - Other specified abnormal findings of blood chemistry, Z68.43 - Body mass index [BMI] 50.0-59.9, adult Complete Blood Count Auto Diff Today E66.813 - Obesity, class 3, I10 - Essential (primary) hypertension, R79.89 - Other specified abnormal findings of blood chemistry, Z68.43 - Body mass index [BMI] 50.0-59.9, adult Liver Panel Today E66.813 - Obesity, class 3, I10 - Essential (primary) hypertension, R79.89 - Other specified abnormal findings of blood chemistry, Z68.43 - Body mass index [BMI] 50.0-59.9, adult TSH reflex Free T4 Today E66.813 - Obesity, class 3, I10 - Essential (primary) hypertension, R79.89 - Other specified abnormal findings of blood chemistry, Z68.43 - Body mass index [BMI] 50.0-59.9, adult Medications: New phentermine must administer 2 hours after breakfast 15 mg PO DAILY 30 caps 0RF 30 days Discontinued metformin ER Discontinued Reason: Doctor's Order 500 mg PO DAILY 90 tabs 1RF Coding Level of Care Code Est Pt Level 4 (59547) Complex EM visit Add On G2211 Diagnoses Elevated LFTs R79.89 Class 3 severe obesity with body mass index (BMI) of 50.0 to 59.9 in adult E66.813; Z68.43 HTN (hypertension) I10
[2025-05-15 12:52] VITALS: BP 118/76; BMI 53.7
--- OUTSIDE RECORDS SUMMARY | 2025-05-15 13:17 | XMS_ITS | Encounter Summary ---
Author Organization [facility] Address [address] [place] [address] Phone Care Team Providers Care Cardroom Drawing Runner Name Role Phone Lora Mims NP Primary Care Provider [phone] Reason for Visit * Reason Comments Med Refill Encounter Details Date Type Department Care Team (Late st Contact Info) Description 11/26/2022 Refill [facility] [address] [place] [address] Lora Mims NP [address] [place] [address] Moderate episode of recurrent major depressive disorder [...] disorder documented in this encounter Care Teams Cardroom Drawing Runner Relationship Specialty Start Date End Date Lora Mims NP [address] [place] [address] PCP - General Pediatrics 01/01/21 documented as of this encounter
--- OUTSIDE RECORDS SUMMARY | 2025-05-15 13:17 | XMS_ITS | Encounter Summary ---
Author Organization [facility] Address [address] [place] [address] Phone Care Team Providers Care Car Changer Name Role Phone Lora Mims NP Primary Care Provider [phone] Encounter Details Date Type Department Care Team (Late st Contact Info) Description 10/04/2011 [place] [facility] [place] [address] [place] [address] Family Medicine, Physician [address] [place] [address] Social History Tobacco Use Types Packs/Day Years [...] on filedocumented in this encounter Care Teams Car Changer Relationship Specialty Start Date End Date Lora Mims NP [address] [place] [address] PCP - General Pediatrics 01/01/21 documented as of this encounter
--- OUTSIDE RECORDS SUMMARY | 2025-05-15 13:17 | XMS_ITS | Encounter Summary ---
Author Organization [facility] Address [address] [place] [address] Phone Care Team Providers Care Cut Roll Machine Offbearer Name Role Phone Lora Mims NP Primary Care Provider Encounter Details Date Type Department Care Team (Late st Contact Info) Description 09/08/2011 Documentation [facility] [place] Family Medicine [address] [place] [address] Family Medicine, Physician [address] [place] [address] Social History Tobacco Use Types Packs/Day Years [...] on filedocumented in this encounter Care Teams Cut Roll Machine Offbearer Relationship Specialty Start Date End Date Lora Mims NP [address] [place] [address] PCP - General Pediatrics 01/01/21 documented as of this encounter
--- OUTSIDE RECORDS SUMMARY | 2025-05-15 13:17 | XMS_ITS | Encounter Summary ---
Author Organization [facility] Address [address] [place] [address] Phone Care Team Providers Care Laser Cutter Name Role Phone Lora Mims NP Primary Care Provider [phone] Encounter Details Date Type Department Care Team (Late st Contact Info) Description 10/17/2011 Documentation [facility] [place] Family Medicine [address] [place] [address] Family Medicine, Physician [address] [place] [address] Social History Tobacco Use Types Packs/Day Years [...] on filedocumented in this encounter Care Teams Laser Cutter Relationship Specialty Start Date End Date Lora Mims NP [address] [place] [address] PCP - General Pediatrics 01/01/21 documented as of this encounter
--- OUTSIDE RECORDS SUMMARY | 2025-05-15 13:17 | XMS_ITS | Encounter Summary ---
Author Organization [facility] Address [address] [place] [address] Phone Care Team Providers Care Restaurant Assistant Manager Name Role Phone Lora Mims NP Primary Care Provider [phone] Encounter Details Date Type Department Care Team (Late st Contact Info) Description 05/04/2017 Conversion Encounter [facility] - [address] [address] Social History Tobacco Use Types Packs/Day Years [...] on filedocumented in this encounter Care Teams Restaurant Assistant Manager Relationship Specialty Start Date End Date Lora Mims NP [address] [place] [address] PCP - General Pediatrics 01/01/21 documented as of this encounter
--- OUTSIDE RECORDS SUMMARY | 2025-05-15 13:17 | XMS_ITS | Encounter Summary ---
Author Organization [facility] Address [address] [place] [address] Phone Care Team Providers Care Bulk Sugar Handler Name Role Phone Lora Mims NP Primary Care Provider [phone] Encounter Details Date Type Department Care Team (Late st Contact Info) Description 08/31/2011 Documentation [facility] [place] Family Medicine [address] [place] [address] Family Medicine, Physician [address] [place] [address] Social History Tobacco Use Types Packs/Day Years [...] on filedocumented in this encounter Care Teams Bulk Sugar Handler Relationship Specialty Start Date End Date Lora Mims NP [address] [place] [address] PCP - General Pediatrics 01/01/21 documented as of this encounter
--- OUTSIDE RECORDS SUMMARY | 2025-05-15 13:17 | XMS_ITS | Encounter Summary ---
Author Organization [facility] Address [address] [place] [address] Phone Care Team Providers Care Compliance Examiner Name Role Phone Lora Mims NP Primary Care Provider [phone] Encounter Details Date Type Department Care Team (Late st Contact Info) Description 04/07/2010 Documentation [facility] [place] Family Medicine [address] [place] [address] Family Medicine, Physician [address] [place] [address] Social History Tobacco Use Types Packs/Day Years [...] filedocumented in this encounter Care Teams Compliance Examiner Relationship Specialty Start Date End Date Lora Mims NP [address] [facility] [address] [place] [address] PCP - General Pediatrics 01/01/21 documented as of this encounter
--- OUTSIDE RECORDS SUMMARY | 2025-05-15 13:17 | XMS_ITS | Encounter Summary ---
Author Organization [facility] Address [address] [place] [address] Phone Care Team Providers Care Prototype Special Build Name Role Phone Lora Mims NP Primary Care Provider [phone] Encounter Details Date Type Department Care Team (Late st Contact Info) Description 12/10/2009 Documentation [facility] [place] [address] [place] [address] Family Medicine, Physician [address] [place] [address] Social History Tobacco Use Types Packs/Day Years [...] on filedocumented in this encounter Care Teams Prototype Special Build Relationship Specialty Start Date End Date Lora Mims NP [address] [facility] [address] [place] [address] PCP - General Pediatrics 01/01/21 documented as of this encounter
--- OUTSIDE RECORDS SUMMARY | 2025-05-15 13:17 | XMS_ITS | Encounter Summary ---
Author Organization [facility] Address [address] [place] [address] Phone Care Team Providers Care Demonstrator Sales Name Role Phone oLra Mims NP Primary Care Provider [phone] Encounter Details Date Type Department Care Team (Late st Contact Info) Description 01/08/2010 Documentation [facility] [place] Family Medicine [address] [place] [address] Family Medicine, Physician [address] [place] [address] Social History Tobacco Use Types Packs/Day Years [...] on filedocumented in this encounter Care Teams Demonstrator Sales Relationship Specialty Start Date End Date Lora Mims NP [address] [facility] [address] [place] [address] PCP - General Pediatrics 01/01/21 documented as of this encounter
--- OUTSIDE RECORDS SUMMARY | 2025-05-15 13:17 | XMS_ITS | Encounter Summary ---
Author Organization [facility] Address [address] [place] [address] Phone Care Team Providers Care Competency Evaluated Nurse Aide Name Role Phone Lora Mims NP Primary Care Provider [phone] Encounter Details Date Type Department Care Team (Late st Contact Info) Description 08/15/2011 Documentation [facility] [place] Family Medicine [address] [place] [address] Family Medicine, Physician [address] [place] [address] Social History Tobacco Use Types Packs/Day Years [...] on filedocumented in this encounter Care Teams Competency Evaluated Nurse Aide Relationship Specialty Start Date End Date Lora Mims NP [address] [facility] [address] [place] [address] PCP - General Pediatrics 01/01/21 documented as of this encounter
--- OUTSIDE RECORDS SUMMARY | 2025-05-15 13:17 | XMS_ITS | Encounter Summary ---
Author Organization [facility] Address [address] [place] [address] Phone Care Team Providers Care Nuclear Design Engineer Name Role Phone Lora Mims NP Primary Care Provider [phone] Encounter Details Date Type Department Care Team (Late st Contact Info) Description 11/30/2009 Documentation [facility] [place] [address] [place] [address] Family Medicine, Physician [address] [place] [address] Social History Tobacco Use Types Packs/Day Years [...] on filedocumented in this encounter Care Teams Nuclear Design Engineer Relationship Specialty Start Date End Date Lora Mims NP [address] [facility] [address] [place] [address] PCP - General Pediatrics 01/01/21 documented as of this encounter
--- OUTSIDE RECORDS SUMMARY | 2025-05-15 13:17 | XMS_ITS | Encounter Summary ---
Author Organization [facility] Address [address] [place] [address] Phone Care Team Providers Care Surgical Corsetier Name Role Phone Lora Mims NP Primary Care Provider [phone] Reason for Visit * Reason Comments Med Refill Encounter Details Date Type Department Care Team (Late st Contact Info) Description 11/29/2022 Refill [facility] [address] [facility] [place] [address] Lora Mims NP [address] [facility] [place] [address] Moderate episode of recurrent major depressive disorder [...] disorder documented in this encounter Care Teams Surgical Corsetier Relationship Specialty Start Date End Date Lora Mims NP [facility] [facility] [place] [address] PCP - General Pediatrics 01/01/21 documented as of this encounter
--- OUTSIDE RECORDS SUMMARY | 2025-05-15 13:17 | XMS_ITS | Encounter Summary ---
Author Organization [facility] Address [address] [place] [address] Phone Care Team Providers Care Budget Specialist Name Role Phone Lora Mims NP Primary Care Provider [phone] Encounter Details Date Type Department Care Team (Late st Contact Info) Description 08/29/2011 Documentation [facility] Family Medicine [address] [place] [address] Family Medicine, Physician [address] [place] [address] Social History Tobacco Use Types Packs/Day Years [...] on filedocumented in this encounter Care Teams Budget Specialist Relationship Specialty Start Date End Date Lora Mims NP [address] [facility] [address] [place] [address] PCP - General Pediatrics 01/01/21 documented as of this encounter
--- OUTSIDE RECORDS SUMMARY | 2025-05-15 13:17 | XMS_ITS | Encounter Summary ---
Author Organization [facility] Address [address] [place] [address] Phone Care Team Providers Care Homicide Squad Captain Name Role Phone Lora Mims NP Primary Care Provider [phone] Encounter Details Date Type Department Care Team (Late st Contact Info) Description 02/16/2012 Conversion Encounter [facility] [address] [place] [place] [address] Social History Tobacco Use Types Packs/Day Years [...] on filedocumented in this encounter Care Teams Homicide Squad Captain Relationship Specialty Start Date End Date Lora Mims NP [address] [facility] [place] [address] PCP - General Pediatrics 01/01/21 documented as of this encounter
--- OUTSIDE RECORDS SUMMARY | 2025-05-15 13:17 | XMS_ITS | Clinical Summary ---
Author Organization [facility] Address [address] [place] [address] Phone Care Team Providers Care Asw Specialist Name Role Phone Lora Mims COLLIN Primary Care Provider [phone] Allergies No known active allergies Medications fluticasone 50 MCG/ACT nasal spray Dose Amount: 1 spray, Nasal, daily, Special Instructions: to each nostril, Dispense Quantity: 1 EA, Refills: 11, Entered: 12/04/20 12:28:00 EDT, [facility]/pharmacy #[id number] 1 Active tretinoin 0.025 % cream Dose Amount: 1 appl, TOP, bedtime, Special Instructions: apply as tolerated, Dispense Quantity: 45 g, Refills: 1, Entered: 09/29/20 15:31:00 EST, [facility]/pharmacy #[id number] 1 Active norgestimate-eth inyl estradiol 0.25-35 MG-MCG per tablet Dose Amount: 1 tab, PO, daily, Special Instructions: 28 day (cyclic), Dispense Quantity: 84 tab, Refills: 6, Entered: 03/05/21 11:58:00 EDT, [facility]/pharmacy #[id number] 1 Active loratadine (Claritin) 10 MG [...] Assessment & Plan (10/30/2021 8:45 AM EST): Shbt-jxkz-khugu disease (Coxsackie) This illness is caused by a virus and can cause a rash on the hands, feet, mouth, and diaper/genital area. The mouth sores can be quite painful. Recommend ibuprofen every 6 hours, cool liquids or popsicles and keeping hydrated as best as possible. Wash hands well. Illness should resolve on own but may [...] treated for sinus headaches by ENT at [facility] Assessment & Plan (05/03/2021 9:56 PM EDT): DOS: 04/16/21 Dr Hsieh Dx: Chronic headaches, H/O epilepsy and resolved left sphenoid sinusitis. F/U with Neuro for headaches. No f/u scheduled. Polycystic ovary syndrome 04/06/2020 Overview (06/21/2022): Followed by [facility]- RESIDENT SURGEON They do routine blood work- CBC, CMP, lipids, A1C Assessment & Plan (06/20/2022 3:01 PM EDT): Followed by theatrical variety agent They also treat her for insulin resistance [...] (06/20/2022 3:02 PM EDT): Has worked with trade mark examiner/weight loss programs in the past Feeling very overwhelmed lately Discussed concerns regarding weight Reviewed crocodile farmer potential health risks associated with obesity Discussed dietary changes, portion sizes, limiting snacks, and encouraged healthier options Also reviewed importance of daily aerobic activity Assessment & Plan (07/13/2019 7:37 AM EDT): Followed by [facility] at [facility] for weight management. Has lost 4 [...] 78 12/07/2022 3:32 PM EDT Temperature 37.1 C (98.7 F) 12/07/2022 3:32 PM EDT Respiratory Rate - - Oxygen Saturation 99% 06/14/2017 9:55 AM EDT Inhaled Oxygen Concentration - - Weight 141 kg (310 lb 8 oz) 12/07/2022 3:32 PM E DT Height 166.5 cm (5' 5.55 ) 06/20/2022 1:58 PM ED T Body Mass Index 50.8 06/20/2022 1:58 PM EDT Plan of Treatment Health Maintenance Due Date Last Done Comments Men B Vaccine (1 of 2 - Standard) 2019 DTaP,Tdap,and Td Vaccines (7 - Td or Tdap) 02/20/2024 02/19/2014, 02/16/2007, 02/16/2007, Additional history exists COVID-19 Vaccine (2023-2 5 season) 2024 08/26/2021, 02/23/2021, 02/01/2021 Influenza Vaccines (#1) 2025 06/20/20, 06/16/2021, 07/23/2020, Additional history exists Hepatitis B Vaccines Completed 2003, 2003, 2003, [...] Completed 07/10/2019, 014 Procedures * Due to [place] [employer] law, this organization might not be sharing sensitive test results. Procedure Name Priority Date/Time Associated Diagnosis Comments CHLAMYDIA GC AMP PROBE Routine 06/20/2022 2:15 PM EDT Encounter for screening examination for sexually transmitted disease from Last 3 Months or Most Recently Relevant to Health Maintenance Results * Due to [place] [employer] law, this organization might not be sharing sensitive test results. * Chlamydia and Gonorrhoea, Amplified (Vagina) (06/20/2022 2:15 PM EDT) Chlamydia Trachomatis, Amplified NEGATIVE (NEG) [facility] Comment: No Chlamydia Trachomatis RNA detected in this patient's sample (REFERENCE RANGE/NORMAL VALUE: NOT DETECTED) Note: This test uses resaw operator- mediated amplification method to detect rRNA from C. Trachomatis N.GONORRHOEAE AMP PROBE NEGATIVE (NEG) [facility] Comment: No Neisseria Gonorrhoeae RNA detected in this patient's sample (REFERENCE RANGE/NORMAL VALUE: NOT DETECTED) NOTE: This test uses resaw operator-mediated amplification method to detect rRNA from [...] risk of sexual abuse. Consult the [facility] if needed. Contact phone number . Therapeutic failure or success cannot be determined with the Aptima Combo2 assay since nucleic acid may persist following appropriate antimicrobial therapy. The Centers for Disease Control and Prevention (CDC) recommends confirmatory retesting using culture or a different nucleic acid amplification test when positive results occur, if indicated. CHLAM/GC AMP PROBE SPEC TYPE VAGINAL SPECIMEN [facility] Comment: Testing performed or reported by [facility], a Service of [facility], [address] [place] [address] Cortes Franco MD, Perinatal Coordinator [facility]# [id number] Swab (Vagina) 06/20/2022 2:1 5 PM EDT 06/21/2022 8:34 AM EDT Lora Mims NP LAB MICROBIOLOGY - GENERAL ORDER KARINA Final Result [facility] from Last 3 Months or Most Recently Relevant to Health Maintenance [place] [address] [facility] [place] [facility] Address: [facility] [facility] [address] [place] [address] [place] [address] Care Teams Asw Specialist Relationship Specialty Start Date End Date Lora Mims NP [facility] [facility] [place] [address] PCP - General Pediatrics 01/01/21
--- OUTSIDE RECORDS SUMMARY | 2025-05-15 13:17 | XMS_ITS | Encounter Summary ---
Author Organization [facility] Address [address] [place] [address] Phone Care Team Providers Care Project Facilitator Name Role Phone Lora Mims NP Primary Care Provider [phone] Encounter Details Date Type Department Care Team (Late st Contact Info) Description 08/30/2011 Documentation [facility] [place] Family Medicine [address] [place] [address] Family Medicine, Physician [address] [place] [address] Social History Tobacco Use Types Packs/Day Years [...] on filedocumented in this encounter Care Teams Project Facilitator Relationship Specialty Start Date End Date Lora Mims NP [address] [facility] [address] [place] [address] PCP - General Pediatrics 01/01/21 documented as of this encounter
--- OUTSIDE RECORDS SUMMARY | 2025-05-15 13:17 | XMS_ITS | Encounter Summary ---
Author Organization [facility] Address [address] [place] [address] Phone Care Team Providers Care Anthropology And Archeology Instructor Name Role Phone Lora Mims NP Primary Care Provider [phone] Encounter Details Date Type Department Care Team (Late st Contact Info) Description 07/20/2011 Documentation [facility] [place] Family Medicine [address] [place] [address] Family Medicine, Physician [address] [place] [address] Social History Tobacco Use Types Packs/Day Years [...] on filedocumented in this encounter Care Teams Anthropology And Archeology Instructor Relationship Specialty Start Date End Date Lora Mims NP [address] [facility] [address] [place] [address] PCP - General Pediatrics 01/01/21 documented as of this encounter
--- OUTSIDE RECORDS SUMMARY | 2025-05-15 13:17 | XMS_ITS | Encounter Summary ---
Author Organization [facility] Address [address] [place] [address] Phone Care Team Providers Care Supervisor Heat Treating Name Role Phone Lora Mims NP Primary Care Provider [phone] Encounter Details Date Type Department Care Team (Late st Contact Info) Description 09/01/2011 Documentation [place] Family Medicine [address] [place] [address] Family Medicine, Physician [address] [place] [address] Social History Tobacco Use Types Packs/Day Years [...] on filedocumented in this encounter Care Teams Supervisor Heat Treating Relationship Specialty Start Date End Date Lora Mims NP [address] [facility] [address] [place] [address] PCP - General Pediatrics 01/01/21 documented as of this encounter"
--- OUTSIDE RECORDS SUMMARY | 2025-05-15 13:17 | XMS_ITS | Encounter Summary ---
Author Organization [facility] Address [address] [place] [address] Phone Care Team Providers Care Spinner Cap Frame Name Role Phone Lora Mims NP Primary Care Provider [phone] Encounter Details Date Type Department Care Team (Late st Contact Info) Description 08/22/2011 Documentation [facility] [place] Family Medicine [address] [place] [address] Family Medicine, Physician [address] [place] [address] Social History Tobacco Use Types Packs/Day Years [...] on filedocumented in this encounter Care Teams Spinner Cap Frame Relationship Specialty Start Date End Date Lora Mims NP [address] [facility] [address] [place] [address] PCP - General Pediatrics 01/01/21 documented as of this encounter
--- OUTSIDE RECORDS SUMMARY | 2025-05-15 13:17 | XMS_ITS | Encounter Summary ---
Author Organization [facility] Address [address] [place] [address] Phone Care Team Providers Care Volunteer Services Specialist Name Role Phone Lora Mims NP Primary Care Provider [phone] Encounter Details Date Type Department Care Team (Late st Contact Info) Description 12/17/2009 Documentation [facility] [place] Family Medicine [address] [place] [address] Family Medicine, Physician [address] [place] [address] Social History Tobacco Use Types Packs/Day Years [...] on filedocumented in this encounter Care Teams Volunteer Services Specialist Relationship Specialty Start Date End Date Lora Mims NP [address] [facility] [address] [place] [address] PCP - General Pediatrics 01/01/21 documented as of this encounter
--- OUTSIDE RECORDS SUMMARY | 2025-05-15 13:17 | XMS_ITS | Encounter Summary ---
Author Organization [facility] Address [address] [place] [address] Phone Care Team Providers Care Senior Product Development Engineer Name Role Phone Lora Mims NP Primary Care Provider [phone] Encounter Details Date Type Department Care Team (Late st Contact Info) Description 01/30/2012 Documentation [facility] [place] Family Medicine [address] [place] [address] Family Medicine, Physician [address] [place] [address] Social History Tobacco Use Types Packs/Day Years [...] on filedocumented in this encounter Care Teams Senior Product Development Engineer Relationship Specialty Start Date End Date Lora Mims NP [address] [facility] [address] [place] [address] PCP - General Pediatrics 01/01/21 documented as of this encounter
--- OUTSIDE RECORDS SUMMARY | 2025-05-15 13:17 | XMS_ITS | Encounter Summary ---
Author Organization [facility] Address [address] [place] [address] Phone Care Team Providers Care Senior Master Scheduler Name Role Phone Lora Mims NP Primary Care Provider [phone] Encounter Details Date Type Department Care Team (Late st Contact Info) Description 08/09/2011 Documentation [facility] [place] Family Medicine [address] [place] [address] Family Medicine, Physician [address] [place] [address] Social History Tobacco Use Types Packs/Day Years [...] filedocumented in this encounter Care Teams Senior Master Scheduler Relationship Specialty Start Date End Date Lora Mims NP [address] [facility] [address] [place] [address] PCP - General Pediatrics 01/01/21 documented as of this encounter
--- OUTSIDE RECORDS SUMMARY | 2025-05-15 13:17 | XMS_ITS | Clinical Summary ---
Author Organization [facility] Address [address] [place] [address] Phone Care Team Providers Care Bar Machine Operator Production Name Role Phone Abilio Moss MD Primary Care Provider [phone] Abilio Moss MD Unavailable Abilio Moss MD Unavailable Medications * This document contains information received from the source organization and may not represent a complete record from that organization. norgestimate-et hinyl estradioL (Sprintec, 28,) 0.25-35 mg-mcg tablet Dose Amount: 1 tab, PO, daily, Special Instructions: 28 day (cyclic), Dispense Quantity: 84 tab, Refills: 10, Entered: 04/06/22 14:25:00 EDT, [facility]/pharmacy #[id number] 04/06/2022 Active fluticasone (Flonase Allergy Relief) 50 mcg/spray nasal spray Dose Amount: 1 spray, Nasal, daily, Special Instructions: to each nostril, Dispense Quantity: 1 EA, Refills: 11, Entered: 12/04/20 12:28:00 EDT, [facility]/pharmacy #[id number] 12/04/2020 Active hydrALAZINE (Apresoline) 25 mg tablet mg, tab, PO, daily, Entered: 11/11/22 11:55:00 EST 11/11/2022 Active midazolam (Nayzilam) 5 mg/spray (0.1 mL) spray,non-aeros ol See Instructions, Special Instructions: 1 spray (5mg) per nare for a total dose of 10mg PRN seizures greater than 5 minutes., Dispense Quantity: 2 kit, Refills: 0, Entered: 09/08/20 16:13:00 EST, [facility]/pharmacy #[id number] 09/08/2020 Active sertraline (Zoloft) 50 mg [...] this topic Medical Devices Implanted Type Area Retail Selling Floor Leader Device Identifier Shelf Expiration Date Model / Serial / Lot Floseal Matrix Sealant Implanted:Qty: 1 on 11/22/2022 by Narciso Hsieh MD Implant Bilateral : Nose / / [id number] Care Teams Bar Machine Operator Production Relationship Specialty Start Date End Date Abilio Moss MD [address] [place] [address] PCP - General 04/25/22 Abilio Moss MD [address] [place] [address] PCP - Insurance PCP 04/09/21 Abilio Moss MD [address] [place] [address] PCP - Clinical PCP 04/25/22
--- OUTSIDE RECORDS SUMMARY | 2025-05-15 13:17 | XMS_ITS | Encounter Summary ---
Author Organization [facility] Address [address] [place] [address] Phone Care Team Providers Care Fitter/Welder Name Role Phone Lora Mims NP Primary Care Provider [phone] Encounter Details Date Type Department Care Team (Late st Contact Info) Description 11/04/2010 Documentation [facility] Family Medicine [address] [place] [address] Family Medicine, Physician [address] [place] [address] Social History Tobacco Use Types Packs/Day Years [...] on filedocumented in this encounter Care Teams Fitter/Welder Relationship Specialty Start Date End Date Lora Mims NP [address] [facility] [address] [place] [address] PCP - General Pediatrics 01/01/21 documented as of this encounter
--- OUTSIDE RECORDS SUMMARY | 2025-05-15 13:17 | XMS_ITS | Encounter Summary ---
Author Organization [facility] Address [address] [place] [address] Phone Care Team Providers Care Delivery Supervisor Name Role Phone Lora Mims NP Primary Care Provider [phone] Encounter Details Date Type Department Care Team (Late st Contact Info) Description 07/15/2011 Documentation [facility] [place] [address] [place] [address] Family Medicine, Physician [address] [place] [address] Social History Tobacco Use Types Packs/Day Years [...] on filedocumented in this encounter Care Teams Delivery Supervisor Relationship Specialty Start Date End Date Lora Mims NP [address] [facility] [address] [place] [address] PCP - General Pediatrics 01/01/21 documented as of this encounter
== END 2025-05-15 13:03 | disposition home or self-care (01) ==
LOC: HO.HMCFM 12:37
PROVIDERS: PCP Physician Assistant; Visit Provider Physician Assistant
DX: R79.89 Other specified abnormal findings of blood chemistry (principal); E66.813 Obesity, class 3; Z68.43 Body mass index [BMI] 50.0-59.9, adult; I10 Essential (primary) hypertension

== ENCOUNTER 2025-05-15 12:36 | Outpatient (REF) | payer OTHER, SELFPAY ==
[2025-05-15 17:41] LABS: MANUAL DIFF FLAG NO
[2025-05-15 17:47] LABS: Hematocrit 43.9 % (37.0-47.0); Hemoglobin 14.2 g/dl (12.0-16.0); Imm Gran Abs Auto 0.02 X10*3/uL (0.00-0.03); Imm Gran Pct Auto 0.3 % (0.0-0.4); Lymphocytes Absolute Auto 2.3 X10*3/uL (1.2-4.9); Mean Corpuscular HGB Conc 32.3 g/dl (31.0-35.0); Mean Corpuscular Hemoglobin 27.6 pg (27.0-33.0); Mean Corpuscular Volume 85.4 fL (80.0-98.0); NRBC Abs Auto 0.000 X10*3/uL (0.0-0.012); NRBC Pct Auto 0.0 /100WBC (0.0-0.2); Platelet Count 333 X10*3/uL (160-400); Red Blood Count 5.14 X10*6/uL (4.20-5.50); White Blood Count 5.7 X10*3/uL (4.8-10.8)
[2025-05-15 18:14] LABS: Alanine Aminotransferase 84 U/L (0-31); Albumin Level 4.6 g/dL (3.5-5.0); Alkaline Phosphatase 59 U/L (39-117); Anion Gap 16 (12-20); Aspartate Amino Transferase 72 U/L (5-31); Blood Urea Nitrogen 8 mg/dL (9-16); Calcium 9.8 mg/dL (8.4-10.2); Carbon Dioxide 21 mmol/L (22-29); Chloride 106 mmol/L (96-108); Estimated Glomerular Filt Rate > 60; Potassium 4.8 mmol/L (3.3-5.1); Sodium 138 mmol/L (135-145); Total Protein 8.4 g/dL (6.5-8.0)
[2025-05-16 05:33] LABS: Hemoglobin A1C 152.7596 umol/L; Total Hemoglobin (HGBA1C) 3703.5192 umol/L
== END 2025-05-15 12:37 | disposition home or self-care (01) ==
LOC: HO.WFDLDS 12:36
PROVIDERS: PCP Physician Assistant; Visit Provider Physician Assistant
DX: I10 Essential (primary) hypertension (principal); E66.813 Obesity, class 3; Z68.43 Body mass index [BMI] 50.0-59.9, adult; R79.89 Other specified abnormal findings of blood chemistry; R73.01 Impaired fasting glucose; Z79.899 Other long term (current) drug therapy
CPT/HCPCS: 36415; 80053; 82248; 83036; 84443; 85025; 99212

== ENCOUNTER 2025-05-29 14:16 | Outpatient (REF) | payer OTHER, SELFPAY ==
--- NOTE | ~2025-05-29 | US_ITS ---
CLINICAL HISTORY: N92.1 - Excessive and frequent menstruation with irregular cycle US pelvis transabdominal only Comparison: None Findings: Transabdominal scanning performed for overall anatomy. Patient could not tolerate the transvaginal portion of the exam. LMP: Bleeding for 3 weeks Anteverted uterus, normal size and echotexture, measuring 8.8 x 2.9 x 4.0 cm. Well defined endometrium, measuring 7.9 mm in thickness. Endometrium is homogeneous in echotexture throughout. The right ovary measures 3.0 x 1.7 x 2.5 cm. Normal sonographic appearance right ovary. The left ovary measures 2.3 x 2.7 x 1.9 cm. Normal sonographic appearance left ovary. No adnexal masses or fluid collections. No free fluid. Impression: 1. Normal pelvic ultrasound This document has been electronically signed by: Faheem Weeks MD on 05/30/2025 11:13:32
--- OUTSIDE RECORDS SUMMARY | 2025-05-29 18:02 | XMS_ITS | Encounter Summary ---
Author Organization [facility] Address [address] [place] [address] Phone Care Team Providers Care Pool Servicer Name Role Phone Lora Mims NP Primary Care Provider [phone] Encounter Details Date Type Department Care Team (Late st Contact Info) Description 12/10/2009 Documentation [facility] [place] Family Medicine [address] [place] [address] Family Medicine, Physician [address] [place] [address] Social History Tobacco Use Types Packs/Day Years [...] on filedocumented in this encounter Care Teams Pool Servicer Relationship Specialty Start Date End Date Lora Mims NP [address] [facility] [address] [place] [address] PCP - General Pediatrics 01/01/21 documented as of this encounter
--- OUTSIDE RECORDS SUMMARY | 2025-05-29 18:02 | XMS_ITS | Encounter Summary ---
Author Organization [facility] Address [address] [place] [address] Phone Care Team Providers Care Dobby Loom Chain Pegger Name Role Phone Lora Mims NP Primary Care Provider [phone] Reason for Visit * Reason Comments Med Refill Encounter Details Date Type Department Care Team (Late st Contact Info) Description 11/26/2022 Refill [facility] [address] [facility] [place] [address] Lora Mims NP [address] [facility] [place] [address] Moderate episode of recurrent major depressive disorder [...] disorder documented in this encounter Care Teams Dobby Loom Chain Pegger Relationship Specialty Start Date End Date Lora Mims NP [address] [facility] [place] [address] PCP - General Pediatrics 01/01/21 documented as of this encounter
--- OUTSIDE RECORDS SUMMARY | 2025-05-29 18:02 | XMS_ITS | Clinical Summary ---
Author Organization [facility] Address [address] [place] [address] Phone Care Team Providers Care Mechanic Foreman Name Role Phone Lora Mims COLLIN Primary Care Provider [phone] Allergies No known active allergies Medications fluticasone 50 MCG/ACT nasal spray Dose Amount: 1 spray, Nasal, daily, Special Instructions: to each nostril, Dispense Quantity: 1 EA, Refills: 11, Entered: 12/04/20 12:28:00 EDT, [facility]/pharmacy #[id number] 1 Active tretinoin 0.025 % cream Dose Amount: 1 appl, TOP, bedtime, Special Instructions: apply as tolerated, Dispense Quantity: 45 g, Refills: 1, Entered: 09/29/20 15:31:00 EST, [facility]/pharmacy #[id number] 1 Active norgestimate-eth inyl estradiol 0.25-35 MG-MCG per tablet Dose Amount: 1 tab, PO, daily, Special Instructions: 28 day (cyclic), Dispense Quantity: 84 tab, Refills: 6, Entered: 03/05/21 11:58:00 EDT, [facility]/pharmacy #[id number] 1 Active loratadine (Claritin) 10 MG [...] Assessment & Plan (10/30/2021 8:45 AM EST): Hhwk-hjua-mofxf disease ([place]) This illness is caused by [...] treated for sinus headaches by ENT at [facility] Assessment & Plan (05/03/2021 9:56 PM EDT): DOS: 04/16/21 Dr Hsieh Dx: Chronic headaches, H/O epilepsy and resolved left sphenoid sinusitis. F/U with Neuro for headaches. No f/u scheduled. Polycystic ovary syndrome 04/06/2020 Overview (06/21/2022): Followed by [facility]- SOLUTION COORDINATOR They do routine blood work- CBC, CMP, lipids, A1C Assessment & Plan (06/20/2022 3:01 PM EDT): Followed by principal hardware architect They also treat her for insulin resistance with metformin per pt Will request routine labs from them Acanthosis nigricans 05/14/2019 Acne vulgaris 05/14/2019 Obstructive sleep apnea syndrome 11/15/2018 Overview (05/03/2021): Added by [facility] Added by [facility] Epilepsy 11/27/2017 Overview (05/03/2021): Seizure(s) (780.39) Onset: 11/27/2017 Added by: Betty Carvalho Added by [facility] Assessment & Plan (06/20/2022 3:02 PM EDT): [...] 05/15/2017 Added by: Linda Cavazos Added by [facility] Added by [facility] Assessment & Plan (06/20/2022 3:02 PM EDT): 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 Has lost 4 lbs [...] 02/16/2007, Additional history exists Influenza Vaccines (#1) 2025 06/20/20, 06/16/2021, 07/23/2020, Additional history exists COVID-19 Vaccine (2024- 6 season) 2025 08/26/2021, 02/23/2021, 02/01/2021 Hepatitis B Vaccines Completed [...] Completed 07/10/2019, 014 Procedures * Due to [place] law, this organization might not be sharing sensitive test results. Procedure Name Priority Date/Time Associated Diagnosis Comments CHLAMYDIA GC AMP PROBE Routine 06/20/2022 2:15 PM EDT Encounter for screening examination for sexually transmitted disease from Last 3 Months or Most Recently Relevant to Health Maintenance Results * Due to [place] law, this organization might not be sharing sensitive test results. * Chlamydia and Gonorrhoea, Amplified (Vagina) (06/20/2022 2:15 PM EDT) Chlamydia Trachomatis, Amplified NEGATIVE (NEG) [facility] Comment: No Chlamydia Trachomatis RNA detected in this patient's sample (REFERENCE RANGE/NORMAL VALUE: NOT DETECTED) Note: This test uses database technician- mediated amplification method to detect rRNA from C. Trachomatis N.GONORRHOEAE AMP PROBE NEGATIVE (NEG) [facility] Comment: No Neisseria Gonorrhoeae RNA detected in this patient's sample (REFERENCE RANGE/NORMAL VALUE: NOT DETECTED) NOTE: This test uses database technician-mediated amplification method to detect rRNA from [...] without risk of sexual abuse. Consult the [facility] if needed. Contact [...] CHLAM/GC AMP PROBE SPEC TYPE VAGINAL SPECIMEN [facility] Comment: Testing performed or reported by [facility], a Service of [facility], [address] [place] [address] Cortes Franco MD, Glass Embosser [facility]# [id number] Swab (Vagina) 06/20/2022 2:1 5 PM EDT 06/21/2022 8:34 AM EDT Lora Mims NP LAB MICROBIOLOGY - GENERAL ORDER KARINA Final Result [facility] from Last 3 Months or Most Recently Relevant to Health [place] [address] [facility] Address: [facility] [address] [place] [address] [place] [address] Care Teams Mechanic Foreman Relationship Specialty Start Date End Date Lora Mims NP [facility] [facility] [place] [address] PCP - General Pediatrics 01/01/21
--- OUTSIDE RECORDS SUMMARY | 2025-05-29 18:02 | XMS_ITS | Encounter Summary ---
Author Organization [facility] Address [address] [place] [address] Phone Care Team Providers Care Sourcing Assistant Name Role Phone Lora Mims NP Primary Care Provider [phone] Encounter Details Date Type Department Care Team (Late st Contact Info) Description 11/30/2009 Documentation [facility] [place] Family Medicine [address] [place] [address] Family Medicine, Physician [address] [place] [address] Social History Tobacco Use Types Packs/Day Years [...] on filedocumented in this encounter Care Teams Sourcing Assistant Relationship Specialty Start Date End Date Lora Mims NP [address] [facility] [address] [place] [address] PCP - General Pediatrics 01/01/21 documented as of this encounter
--- OUTSIDE RECORDS SUMMARY | 2025-05-29 18:02 | XMS_ITS | Encounter Summary ---
Author Organization [facility] Address [address] [place] [address] Phone Care Team Providers Care Application Services Manager Name Role Phone Lora Mims NP Primary Care Provider [phone] Encounter Details Date Type Department Care Team (Late st Contact Info) Description 05/04/2017 Conversion Encounter [facility] - [address] [address] Social History Tobacco Use Types Packs/Day Years [...] on filedocumented in this encounter Care Teams Application Services Manager Relationship Specialty Start Date End Date Lora Mims NP [address] [facility] [address] [place] [address] PCP - General Pediatrics 01/01/21 documented as of this encounter
--- OUTSIDE RECORDS SUMMARY | 2025-05-29 18:02 | XMS_ITS | Clinical Summary ---
Author Organization [facility] Address [address] [place] [address] Phone Care Team Providers Care Note Keeper Name Role Phone Abilio Moss MD Primary Care Provider Abilio Moss MD Unavailable Abilio Moss MD Unavailable Medications * This document contains information received from the source organization and may not represent a complete record from that organization. norgestimate-et hinyl estradioL (Sprintec, 28,) 0.25-35 mg-mcg tablet Dose Amount: 1 tab, PO, daily, Special Instructions: 28 day (cyclic), Dispense Quantity: 84 tab, Refills: 10, Entered: 04/06/22 14:25:00 EDT, [facility]/pharmacy #[id number] 04/06/2022 Active fluticasone (Flonase Allergy Relief) 50 mcg/spray nasal spray Dose Amount: 1 spray, Nasal, daily, Special Instructions: to each nostril, Dispense Quantity: 1 EA, Refills: 11, Entered: 12/04/20 12:28:00 EDT, [facility]/pharmacy #[id number] 12/04/2020 Active hydrALAZINE (Apresoline) 25 mg tablet mg, tab, PO, daily, Entered: 11/11/22 11:55:00 EST 11/11/2022 Active midazolam (Nayzilam) 5 mg/spray (0.1 mL) spray,non-aeros ol See Instructions, Special Instructions: 1 spray (5mg) per nare for a total dose of 10mg PRN seizures greater than 5 minutes., Dispense Quantity: 2 kit, Refills: 0, Entered: 09/08/20 16:13:00 EST, [facility]/pharmacy #[id number] 09/08/2020 Active sertraline (Zoloft) 50 mg [...] 2003 MMR Vaccines (1 of 1 - Stand dafne series) 01/29/2004 DTaP/Tdap/Td Vaccines (1 - Tdap) 2010 Varicella Vaccines (1 of 2 - 13+ 2-dose series) 01/29/2016 HPV Vaccines (1 - 3-dose series) 2018 Meningococcal B Vaccine (1 o f 2 - Standard) 2019 Hepatitis C Screening 2021 Hepatitis B Vaccines (1 of 3 - 19+ 3-dose series) 2022 Influenza Vaccine (#1) 2025 06/20/2022 HIB Vaccines [...] age to complete this topic Pneumococcal Vaccine: Pediat rics (0 to 5 Years) and At-Risk Patients (6 to 49 Years) Aged Out No longer eligi ble based on patient's age to complete this topic Rotavirus Vaccines Aged Out No longer eligible based on patient's age to complete this topic Medical Devices Implanted Type Area Field Care Manager Device Identifier Shelf Expiration Date Model / Serial / Lot Floseal Matrix Sealant Implanted:Qty: 1 on 11/22/2022 by Narciso Hsieh MD Implant Bilateral : Nose / / [id number] Care Teams Note Keeper Relationship Specialty Start Date End Date Abilio Moss MD [address] [place] [address] PCP - General 04/25/22 Abilio Moss MD [address] [place] [address] PCP - Insurance PCP 04/09/21 Abilio Moss MD [address] [place] [address] PCP - Clinical PCP 04/25/22
--- OUTSIDE RECORDS SUMMARY | 2025-05-29 18:02 | XMS_ITS | Encounter Summary ---
Author Organization [facility] Address [address] [place] [address] Phone Care Team Providers Care Watchguard Name Role Phone Lora Mims NP Primary Care Provider Encounter Details Date Type Department Care Team (Late st Contact Info) Description 08/15/2011 Documentation [facility] [place] Family Medicine [address] [place] [address] Family Medicine, Physician [address] [place] [address] Social History Tobacco Use Types Packs/Day Years [...] on filedocumented in this encounter Care Teams Watchguard Relationship Specialty Start Date End Date Lora Mims NP [address] [facility] [address] [place] [address] PCP - General Pediatrics 01/01/21 documented as of this encounter
--- OUTSIDE RECORDS SUMMARY | 2025-05-29 18:02 | XMS_ITS | Encounter Summary ---
Author Organization [facility] Address [address] [place] [address] Phone Care Team Providers Care Mixing Machine Tender Cork Rod Name Role Phone Lora Mims NP Primary Care Provider [phone] Encounter Details Date Type Department Care Team (Late st Contact Info) Description 08/22/2011 Documentation [facility] [place] [place] Family Medicine [address] [place] [address] Family Medicine, Physician [address] [place] [address] Social History Tobacco Use Types Packs/Day Years [...] on filedocumented in this encounter Care Teams Mixing Machine Tender Cork Rod Relationship Specialty Start Date End Date Lora Mims NP [address] [facility] [address] [place] [address] PCP - General Pediatrics 01/01/21 documented as of this encounter
--- OUTSIDE RECORDS SUMMARY | 2025-05-29 18:02 | XMS_ITS | Encounter Summary ---
Author Organization [facility] Address [address] [place] [address] Phone Care Team Providers Care Sales Service Promoter Name Role Phone Lora Mims NP Primary Care Provider [phone] Encounter Details Date Type Department Care Team (Late st Contact Info) Description 07/20/2011 Documentation [facility] [place] [facility] Family Medicine [address] [place] [address] Family Medicine, Physician [address] [place] [address] Social History Tobacco Use Types Packs/Day Years [...] on filedocumented in this encounter Care Teams Sales Service Promoter Relationship Specialty Start Date End Date Lora Mims NP [address] [facility] [address] [place] [address] PCP - General Pediatrics 01/01/21 documented as of this encounter
--- OUTSIDE RECORDS SUMMARY | 2025-05-29 18:02 | XMS_ITS | Encounter Summary ---
Author Organization [facility] Address [address] [place] [address] Phone Care Team Providers Care Oracle Fusion Consultant Name Role Phone Lora Mims NP Primary Care Provider [phone] Encounter Details Date Type Department Care Team (Late st Contact Info) Description 08/09/2011 Documentation [facility] [place] [address] [place] [address] Family Medicine, Physician [address] [place] [address] Social History Tobacco Use Types Packs/Day Years [...] on filedocumented in this encounter Care Teams Oracle Fusion Consultant Relationship Specialty Start Date End Date Lora Mims NP [address] [facility] [address] [place] [address] PCP - General Pediatrics 01/01/21 documented as of this encounter
--- OUTSIDE RECORDS SUMMARY | 2025-05-29 18:02 | XMS_ITS | Encounter Summary ---
Author Organization [facility] Address [address] [place] [address] Phone Care Team Providers Care Television Production Clerk Name Role Phone Lora Mims NP Primary Care Provider [phone] Encounter Details Date Type Department Care Team (Late st Contact Info) Description 09/08/2011 Documentation [facility] Family Medicine [address] [place] [address] Family Medicine, Physician [address] [place] [address] Social History Tobacco Use Types Packs/Day Years [...] on filedocumented in this encounter Care Teams Television Production Clerk Relationship Specialty Start Date End Date Lora Mims NP [address] [facility] [address] [place] [address] PCP - General Pediatrics 01/01/21 documented as of this encounter
--- OUTSIDE RECORDS SUMMARY | 2025-05-29 18:02 | XMS_ITS | Encounter Summary ---
Author Organization [facility] Address [address] [place] [address] Phone Care Team Providers Care Supervisor Soldering Name Role Phone Lora Mims NP Primary Care Provider [phone] Encounter Details Date Type Department Care Team (Late st Contact Info) Description 12/17/2009 Documentation [facility] [place] Family Medicine [address] [place] [address] Family Medicine, Physician [address] [place] [address] Social History Tobacco Use Types Packs/Day Years [...] filedocumented in this encounter Care Teams Supervisor Soldering Relationship Specialty Start Date End Date Lora Mims NP [address] [facility] [address] [place] [address] PCP - General Pediatrics 01/01/21 documented as of this encounter
--- OUTSIDE RECORDS SUMMARY | 2025-05-29 18:02 | XMS_ITS | Encounter Summary ---
Author Organization [facility] Address [address] [place] [address] Phone Care Team Providers Care Account Underwriter Name Role Phone Lora Mims NP Primary Care Provider [phone] Reason for Visit * Reason Comments Med Refill Encounter Details Date Type Department Care Team (Late st Contact Info) Description 11/29/2022 Refill [facility] [address] [place] [address] Lora Mims NP [address] [place] [address] Moderate episode of recurrent major depressive disorder [...] disorder documented in this encounter Care Teams Account Underwriter Relationship Specialty Start Date End Date Lora Mims NP [facility] [place] [address] PCP - General Pediatrics 01/01/21 documented as of this encounter
--- OUTSIDE RECORDS SUMMARY | 2025-05-29 18:02 | XMS_ITS | Encounter Summary ---
Author Organization [facility] Address [address] [place] [address] Phone Care Team Providers Care Manager Water Wastewater Name Role Phone Lora Mims NP Primary Care Provider [phone] Encounter Details Date Type Department Care Team (Late st Contact Info) Description 09/01/2011 Documentation [facility] [place] Family Medicine [address] [place] [address] Family Medicine, Physician [address] [place] [address] Social History Tobacco Use Types Packs/Day Years [...] on filedocumented in this encounter Care Teams Manager Water Wastewater Relationship Specialty Start Date End Date Lora Mims NP [address] [facility] [address] [place] [address] PCP - General Pediatrics 01/01/21 documented as of this encounter
--- OUTSIDE RECORDS SUMMARY | 2025-05-29 18:02 | XMS_ITS | Encounter Summary ---
Author Organization [facility] Address [address] [place] [address] Phone Care Team Providers Care Automotive Refinisher Name Role Phone Lroa Mims NP Primary Care Provider [phone] Encounter Details Date Type Department Care Team (Late st Contact Info) Description 07/15/2011 Documentation [facility] [place] [address] [place] [address] Family Medicine, Physician [address] [place] [address] Social History Tobacco Use Types Packs/Day Years [...] on filedocumented in this encounter Care Teams Automotive Refinisher Relationship Specialty Start Date End Date Lora Mims NP [address] [facility] [address] [place] [address] PCP - General Pediatrics 01/01/21 documented as of this encounter
--- OUTSIDE RECORDS SUMMARY | 2025-05-29 18:02 | XMS_ITS | Encounter Summary ---
Author Organization [facility] Address [address] [place] [address] Phone Care Team Providers Care Compliance Engineer Name Role Phone Lora Mims NP Primary Care Provider [phone] Encounter Details Date Type Department Care Team (Late st Contact Info) Description 04/07/2010 Documentation [facility] [place] [address] [place] [address] Family Medicine, Physician [address] [place] [address] Social History Tobacco Use Types Packs/Day Years [...] filedocumented in this encounter Care Teams Compliance Engineer Relationship Specialty Start Date End Date Lora Mims NP [address] [facility] [address] [place] [address] PCP - General Pediatrics 01/01/21 documented as of this encounter
--- OUTSIDE RECORDS SUMMARY | 2025-05-29 18:02 | XMS_ITS | Encounter Summary ---
Author Organization [facility] Address [address] [place] [address] Phone Care Team Providers Care Research Engineer Marine Equipment Name Role Phone Lora Mims NP Primary Care Provider [phone] Encounter Details Date Type Department Care Team (Late st Contact Info) Description 01/08/2010 Documentation [facility] [place] Family Medicine [address] [place] [address] Family Medicine, Physician [address] [place] [address] Social History Tobacco Use Types Packs/Day Years [...] on filedocumented in this encounter Care Teams Research Engineer Marine Equipment Relationship Specialty Start Date End Date Lora Mims NP [address] [facility] [address] [place] [address] PCP - General Pediatrics 01/01/21 documented as of this encounter
--- OUTSIDE RECORDS SUMMARY | 2025-05-29 18:02 | XMS_ITS | Encounter Summary ---
Author Organization [facility] Address [address] [place] [address] Phone Care Team Providers Care Medical Director Occupational Health Name Role Phone Lora Mims NP Primary Care Provider [phone] Encounter Details Date Type Department Care Team (Late st Contact Info) Description 08/29/2011 Documentation [facility] [place] [address] [place] [address] Family Medicine, Physician [address] [place] [address] Social History Tobacco Use Types Packs/Day Years [...] on filedocumented in this encounter Care Teams Medical Director Occupational Health Relationship Specialty Start Date End Date Lora Mims NP [address] [facility] [address] [place] [address] PCP - General Pediatrics 01/01/21 documented as of this encounter
--- OUTSIDE RECORDS SUMMARY | 2025-05-29 18:02 | XMS_ITS | Encounter Summary ---
Author Organization [facility] Address [address] [place] [address] Phone Care Team Providers Care Residential Lawn Specialist Name Role Phone Lora Mims NP Primary Care Provider [phone] Encounter Details Date Type Department Care Team (Late st Contact Info) Description 11/04/2010 Documentation [facility] [place] Family Medicine [address] [place] [address] Family Medicine, Physician [address] [place] [address] Social History Tobacco Use Types Packs/Day Years [...] on filedocumented in this encounter Care Teams Residential Lawn Specialist Relationship Specialty Start Date End Date Lora Mims NP [address] [facility] [address] [place] [address] PCP - General Pediatrics 01/01/21 documented as of this encounter
--- OUTSIDE RECORDS SUMMARY | 2025-05-29 18:03 | XMS_ITS | Encounter Summary ---
Author Organization [facility] Address [address] [place] [address] Phone Care Team Providers Care Salvationist Name Role Phone Lora Mims NP Primary Care Provider [phone] Encounter Details Date Type Department Care Team (Late st Contact Info) Description 10/17/2011 Documentation [facility] [place] Family Medicine [address] [place] [address] Family Medicine, Physician [address] [place] [address] Social History Tobacco Use Types Packs/Day Years [...] on filedocumented in this encounter Care Teams Salvationist Relationship Specialty Start Date End Date Lora Mims NP [address] [facility] [address] [place] [address] PCP - General Pediatrics 01/01/21 documented as of this encounter
--- OUTSIDE RECORDS SUMMARY | 2025-05-29 18:03 | XMS_ITS | Encounter Summary ---
Author Organization [facility] Address [address] [place] [address] Phone Care Team Providers Care Catheter Builder Name Role Phone Lora Mims NP Primary Care Provider [phone] Encounter Details Date Type Department Care Team (Late st Contact Info) Description 08/31/2011 Documentation [facility] [place] Family Medicine [address] [place] [address] Family Medicine, Physician [address] [place] [address] Social History Tobacco Use Types Packs/Day Years [...] on filedocumented in this encounter Care Teams Catheter Builder Relationship Specialty Start Date End Date Lora Mims NP [address] [facility] [address] [place] [address] PCP - General Pediatrics 01/01/21 documented as of this encounter
--- OUTSIDE RECORDS SUMMARY | 2025-05-29 18:03 | XMS_ITS | Encounter Summary ---
Author Organization [facility] Address [address] [place] [address] Phone Care Team Providers Care Steel Die Engraver Name Role Phone Lora Mims NP Primary Care Provider [phone] Encounter Details Date Type Department Care Team (Late st Contact Info) Description 02/16/2012 Conversion Encounter [facility] [address] [place] [address] Social History Tobacco Use Types Packs/Day Years [...] on filedocumented in this encounter Care Teams Steel Die Engraver Relationship Specialty Start Date End Date Lora Mims NP [address] [place] [address] PCP - General Pediatrics 01/01/21 documented as of this encounter
--- OUTSIDE RECORDS SUMMARY | 2025-05-29 18:03 | XMS_ITS | Encounter Summary ---
Author Organization [facility] Address [address] [place] [address] Phone Care Team Providers Care Mastic Man Name Role Phone Lora Mims NP Primary Care Provider [phone] Encounter Details Date Type Department Care Team (Late st Contact Info) Description 08/30/2011 Documentation [facility] [place] [facility] [address] [place] [address] Family Medicine, Physician [address] [place] [address] Social History Tobacco Use Types Packs/Day Years [...] on filedocumented in this encounter Care Teams Mastic Man Relationship Specialty Start Date End Date Lora Mims NP [address] [place] [address] PCP - General Pediatrics 01/01/21 documented as of this encounter
--- OUTSIDE RECORDS SUMMARY | 2025-05-29 18:03 | XMS_ITS | Encounter Summary ---
Author Organization [facility] Address [address] [place] [address] Phone Care Team Providers Care Manager Life Name Role Phone Lora Mims NP Primary Care Provider Encounter Details Date Type Department Care Team (Late st Contact Info) Description 10/04/2011 Documentation [facility] [place] [address] [place] [address] Family Medicine, Physician [address] [place] [address] Social History Tobacco Use Types Packs/Day Years [...] filedocumented in this encounter Care Teams Manager Life Relationship Specialty Start Date End Date Lora Mims NP [address] [facility] [place] [address] PCP - General Pediatrics 01/01/21 documented as of this encounter
--- OUTSIDE RECORDS SUMMARY | 2025-05-29 18:03 | XMS_ITS | Encounter Summary ---
Author Organization [facility] Address [address] [place] [address] Phone Care Team Providers Care Brownell Operator Name Role Phone Lora Mims NP Primary Care Provider [phone] Encounter Details Date Type Department Care Team (Late st Contact Info) Description 01/30/2012 [place] [facility] [place] [address] [place] [address] Family Medicine, Physician [address] [place] [address] Social History Tobacco Use Types Packs/Day Years [...] on filedocumented in this encounter Care Teams Brownell Operator Relationship Specialty Start Date End Date Lora Mims NP [address] [facility] [address] [place] [address] PCP - General Pediatrics 01/01/21 documented as of this encounter
== END 2025-05-29 14:17 | disposition home or self-care (01) ==
LOC: HO.HMGCX 14:16
PROVIDERS: PCP Physician Assistant; Visit Provider Physician Assistant
DX: N92.1 Excessive and frequent menstruation with irregular cycle (principal); R79.89 Other specified abnormal findings of blood chemistry; R03.0 Elevated blood-pressure reading, without diagnosis of hypertension; E28.2 Polycystic ovarian syndrome
CPT/HCPCS: 76856

== ENCOUNTER 2025-06-25 12:16 | Outpatient (AMB) | payer OTHER, SELFPAY ==
[2025-06-25 12:24] VITALS: BP 132/65; PULSE 91; RESP 16; TEMP 36.7; O2SAT 97; BMI 54.0
--- NOTE | 2025-06-25 12:24 | MHC.PC.OV ---
Vital Signs 06/25/25 12:24 Height 5 ft 6 in Weight 334 lb 6 oz BMI 54.0 BP 132/65 Blood Pressure Location Rt brachial Position Sitting Respiration 16 Pulse 91 Pulse Source Pulse Oximeter Temp 98.1 F Temp Source Oral Pulse Oximetry (%) 97 Oxygen Delivery Method Room Air Intake Visit Reasons: bp check and med check Intake Note: Blood pressure and medication follow up [place] Required: No Allergies No Known Allergies Allergy (Verified 06/25/25 12:24) Medication List - Last Reconciled 06/25/25 by Deanna Head PA-C stintmfyxm-mshsuqyqrbmmf-haic 50-300-40 mg (Fioricet) 1 cap PO Q8H PRN 3 days fluticasone propionate 50 mcg/actuation (Flonase Allergy Relief) 2 sprays intranasal DAILY hydrochlorothiazide 25 mg PO QAM hydroxyzine HCl 25 mg PO Q8H PRN 90 days sertraline 100 mg PO DAILY Tobacco use date assessed: 04/09/25 Dental Screening Dental Screen Date: 02/19/25 HPI bp check and med check HPI Details The patient is a 20-year-old female presenting for a follow-up. Pysch: She is currently on sertraline 100 mg daily and feeling well with this. She uses hydroxyzine if absolutely needed. She is doing well in school currently. Recently had some roommate issues but feels better. General: She states that in the past she has been on spironolactone for her PCOS but that made her feel nauseous and spacey. She was on metformin years ago and recently I did restart her on this. She had has not noticed any real improvement of improvement of her menstrual cycle and PCOS symptoms. She does continue to gain weight and has some GI side effects from the metformin. She just tried phentermine which she states made her feel sick. She would not be a candidate for Wellbutrin given her history of anxiety and depression currently being well-controlled and thinks in the past she has taken this in it had caused increased anxiety.. Her insurance states that they will covers [employer]. She has tried numerous clkb-ptz-dzvgpaf supplements, Atkins, [place], low-calorie diet, low carb diet, and going to the gym. She is currently working on a diet but is not able to lose much weight. She has gained 2 lb since our last visit. has a hx of obstructive sleep apnea, fatty liver, and htn. GI: She does have persistently elevated LFTs and was referred in the past to GI. She did have an abdominal ultrasound which was consistent with fatty liver. She has seen a franchise business consultant in the past and was referred again. CV: Her blood pressure is better on hydrochlorothiazide. Neuro: Has a history of sleep apnea but this has not been rechecked in many years. She recently has been waking up with headaches in the morning. She does snore a lot at night. 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 Current occupational exposures/hazards: No Cognitive needs: No Hearing needs: No Vision needs: No Questionnaire Thrive Questionnaire Date Thrive assessed: 10/02/24 I am a: Patient What is your living situation today?: I have a steady place to live Within the past 12 months, did the food you bought not last and you didn't have the money to get more?: I choose not to answer this question Within the past 12 months, did you worry whether your food would run out before you got money to buy more?: I choose not to answer this question Do you have trouble paying for medicines?: I choose not to answer this question Do you have trouble getting transportation to medical appointments?: No Do you have trouble paying your heating and electricity bill?: I choose not to answer this question Do you have trouble taking care of your child, family member or friend?: I choose not to answer this question Do you have trouble with day-to-day activities such as bathing, preparing meals, shopping, managing finances, etc.?: I choose not to answer this question Are you currently unemployed and looking for a job?: I choose not to answer this question Are you interested in more education?: I choose not to answer this question Please select the resources that you would like help with: None Currently or been in a relationship where the following occur: I choose not to answer THRIVE Score: 0 LENORA-7 AMB Questionnaire LENORA-7 Date LENORA - 7 assessed: 10/02/24 Source: Developed by Drs. River Villanueva, Milagro Ramírez, Elia Banks and colleagues, with an educational reji from [employer]. Physical exam (Primary Care) Vital Signs: Last Vital Signs Temp 98.1 F 06/25/25 12:24 Pulse 91 06/25/25 12:24 Resp 16 06/25/25 12:24 BP 132/65 06/25/25 12:24 Pulse Ox 97 06/25/25 12:24 Oxygen Delivery Method Room Air 06/25/25 12:24 BMI result Body Mass Index 54.0 Tobacco/Smoking Status: Tobacco use Status Tobacco use date assessed 04/09/25 06/25/25 12:27 Patient Tobacco Use Status Never used Tobacco 06/25/25 12:27 e-Cigarette/Vaping Use Never Used 06/25/25 12:27 Thrive Assessment: Date of Thrive Assessment Date Thrive assessed 10/02/24 06/25/25 12:27 Currently or been in a relationship where the following occur: I choose not to answer Const Orientation/consciousness: patient oriented x3 HENMT Ears: hearing grossly normal bilaterally Neck Thyroid: Thyroid normal Lymphatic: no lymphadenopathy noted Resp Auscultation: clear to auscultation bilaterally Cardio Rate: regular rate Rhythm: regular rhythm Heart sounds: S1 normal heart sound present and S2 normal heart sound present GI Inspection: Yes normal to inspection Palpation (GI): Soft to palpation and Other GI palpation findings present (nontender, no cva tenderness) Auscultation: normoactive bowel sounds Rectal Exam - Female: deferred Skin General skin exam: no rashes or lesions noted Neuro General: patient oriented x3, gait normal and no focal motor deficits Coding Level of Care Code Est Pt Level 4 (25745) Complex EM visit Add On G2211 Diagnoses STACIE (obstructive sleep apnea) G47.33 Class 3 severe obesity with body mass index (BMI) of 50.0 to 59.9 in adult E66.813; Z68.43 Frequent headaches R51.9 Insulin resistance E88.819 HTN (hypertension) I10 Assessment & Plan Assessment & Plan (1) STACIE (obstructive sleep apnea): Code(s): G47.33 - Obstructive sleep apnea (adult) (pediatric) Category: Medical Plan: Has a history of this. We will update sleep study. Referral to sleep Medicine. (2) Class 3 severe obesity with body mass index (BMI) of 50.0 to 59.9 in adult: Code(s): E66.813 - Obesity, class 3; Z68.43 - Body mass index [BMI] 50.0-59.9, adult Category: Medical Plan: We will try to get zepbound covered. She would benefit from weight loss as she has fatty liver, hypertension, obstructive sleep apnea, PCOS, insulin resistance. (3) Frequent headaches: Code(s): R51.9 - Headache, unspecified Category: Medical Plan: Referral to neurology MRI ordered Suspect related to untreated sleep apnea (4) Insulin resistance: Code(s): E88.819 - Insulin resistance, unspecified Category: Medical Plan: Labs ordered. (5) HTN (hypertension): Code(s): I10 - Essential (primary) hypertension Category: Medical Plan: WNL. Continue current regimen Orders: Orders RT home sleep study 06/25/25 G47.33 - Obstructive sleep apnea (adult) (pediatric), R06.81 - Apnea, not elsewhere classified Comprehensive Met. Panel 06/25/25 E66.813 - Obesity, class 3, E88.819 - Insulin resistance, unspecified, G47.33 - Obstructive sleep apnea (adult) (pediatric), I10 - Essential (primary) hypertension, R51.9 - Headache, unspecified, Z68.43 - Body mass index [BMI] 50.0-59.9, adult Magnesium 06/25/25 E66.813 - Obesity, class 3, E88.819 - Insulin resistance, unspecified, G47.33 - Obstructive sleep apnea (adult) (pediatric), I10 - Essential (primary) hypertension, R51.9 - Headache, unspecified, Z68.43 - Body mass index [BMI] 50.0-59.9, adult MR head/brain wo con 06/25/25 R51.9 - Headache, unspecified, Z86.69 - Personal history of other diseases of the nervous system and sense organs Complete Blood Count Auto Diff 06/25/25 E66.813 - Obesity, class 3, E88.819 - Insulin resistance, unspecified, G47.33 - Obstructive sleep apnea (adult) (pediatric), I10 - Essential (primary) hypertension, R51.9 - Headache, unspecified, Z68.43 - Body mass index [BMI] 50.0-59.9, adult Vitamin B12 and Folate 06/25/25 E66.813 - Obesity, class 3, E88.819 - Insulin resistance, unspecified, G47.33 - Obstructive sleep apnea (adult) (pediatric), I10 - Essential (primary) hypertension, R51.9 - Headache, unspecified, Z68.43 - Body mass index [BMI] 50.0-59.9, adult Hemoglobin A1c 06/25/25 E66.813 - Obesity, class 3, E88.819 - Insulin resistance, unspecified, G47.33 - Obstructive sleep apnea (adult) (pediatric), I10 - Essential (primary) hypertension, R51.9 - Headache, unspecified, R73.01 - Impaired fasting glucose, Z68.43 - Body mass index [BMI] 50.0-59.9, adult TSH reflex Free T4 06/25/25 E66.813 - Obesity, class 3, E88.819 - Insulin resistance, unspecified, G47.33 - Obstructive sleep apnea (adult) (pediatric), I10 - Essential (primary) hypertension, R51.9 - Headache, unspecified, Z68.43 - Body mass index [BMI] 50.0-59.9, adult Referrals Sleep Medicine Referral E66.813 - Obesity, class 3, G47.33 - Obstructive sleep apnea (adult) (pediatric), Z68.43 - Body mass index [BMI] 50.0-59.9, adult Neurology Referral R51.9 - Headache, unspecified Medications: New tirzepatide (weight loss) (Zepbound) 2.5 mg (0.5 mL) subcut QWEEK 2 mL 4RF
== END 2025-06-25 12:42 | disposition home or self-care (01) ==
LOC: HO.HMCFM 12:17
PROVIDERS: PCP Physician Assistant; Visit Provider Physician Assistant
DX: G47.33 Obstructive sleep apnea (adult) (pediatric) (principal); E66.813 Obesity, class 3; Z68.43 Body mass index [BMI] 50.0-59.9, adult; R51.9 Headache, unspecified; E88.819 Insulin resistance, unspecified; I10 Essential (primary) hypertension; Z23 Encounter for immunization

== ENCOUNTER 2025-06-25 12:16 | Outpatient (REF) | payer OTHER, SELFPAY ==
[2025-06-25 14:20] LABS: MANUAL DIFF FLAG NO
[2025-06-25 14:31] LABS: Hematocrit 40.0 % (37.0-47.0); Hemoglobin 13.0 g/dl (12.0-16.0); Imm Gran Abs Auto 0.01 X10*3/uL (0.00-0.03); Imm Gran Pct Auto 0.2 % (0.0-0.4); Lymphocytes Absolute Auto 2.1 X10*3/uL (1.2-4.9); Mean Corpuscular HGB Conc 32.5 g/dl (31.0-35.0); Mean Corpuscular Hemoglobin 27.8 pg (27.0-33.0); Mean Corpuscular Volume 85.7 fL (80.0-98.0); NRBC Abs Auto 0.000 X10*3/uL (0.0-0.012); NRBC Pct Auto 0.0 /100WBC (0.0-0.2); Platelet Count 347 X10*3/uL (160-400); Red Blood Count 4.67 X10*6/uL (4.20-5.50); White Blood Count 5.2 X10*3/uL (4.8-10.8)
[2025-06-25 15:12] LABS: Alanine Aminotransferase 68 U/L (0-31); Albumin Level 4.5 g/dL (3.5-5.0); Alkaline Phosphatase 56 U/L (39-117); Anion Gap 10 (12-20); Aspartate Amino Transferase 53 U/L (5-31); Blood Urea Nitrogen 7 mg/dL (9-16); Calcium 9.6 mg/dL (8.4-10.2); Carbon Dioxide 25 mmol/L (22-29); Chloride 110 mmol/L (96-108); Estimated Glomerular Filt Rate > 60; Magnesium 1.9 mg/dL (1.6-2.6); Potassium 4.1 mmol/L (3.3-5.1); Sodium 141 mmol/L (135-145); Total Protein 7.6 g/dL (6.5-8.0)
[2025-06-25 15:27] LABS: Folate 8.5 ng/mL (> or = 4.0); Vitamin B12 384 pg/mL (200-900)
[2025-06-25 16:13] LABS: Total Hemoglobin (HGBA1C) 3395.1964 umol/L
== END 2025-06-25 12:17 | disposition home or self-care (01) ==
LOC: HO.WFDLDS 12:16
PROVIDERS: PCP Physician Assistant; Visit Provider Physician Assistant
DX: Z23 Encounter for immunization (principal); E66.813 Obesity, class 3; Z68.43 Body mass index [BMI] 50.0-59.9, adult; E88.819 Insulin resistance, unspecified; I10 Essential (primary) hypertension; R51.9 Headache, unspecified; G47.33 Obstructive sleep apnea (adult) (pediatric); Z71.3 Dietary counseling and surveillance
CPT/HCPCS: 36415; 80053; 82607; 82746; 83036; 83735; 84443; 85025; 90471; 90656; 99212

== ENCOUNTER 2025-07-28 13:18 | Outpatient (AMB) | payer OTHER, SELFPAY ==
--- NOTE | 2025-07-28 13:28 | MHC.PC.OV ---
Vital Signs 07/28/25 13:33 Height 5 ft 6 in Weight 330 lb 8 oz BMI 53.3 BP 138/78 Blood Pressure Location Lt femoral Position Sitting Respiration 14 Pulse 103 H Pulse Source Pulse Oximeter Temp 97.2 F Temp Source Oral Pulse Oximetry (%) 99 Oxygen Delivery Method Room Air Intake Visit Reasons: headaches Intake Note: Follow up to review mri from having headaches Meat Cutter Required: No Allergies No Known Allergies Allergy (Verified 07/28/25 13:56) Medication List - Last Reconciled 07/28/25 by Mayelin Medina, DATA INTEGRITY CONSULTANT-BC amoxicillin-pot clavulanate 875-125 mg 1 tab PO BID jlokmoeqdq-qmvvoeetpqnpm-oxkw 50-300-40 mg (Fioricet) 1 cap PO Q8H PRN 3 days fluticasone propionate 50 mcg/actuation (Flonase Allergy Relief) 2 sprays intranasal DAILY hydrochlorothiazide 25 mg PO QAM hydroxyzine HCl 25 mg PO Q8H PRN 90 days sertraline 100 mg PO DAILY tirzepatide (weight loss) (Zepbound) 2.5 mg (0.5 mL) subcut QWEEK Tobacco use date assessed: 07/28/25 Dental Screening Dental Screen Date: 07/28/25 Did you have a dental visit in the last 12 months?: Yes Did you have a dental problem in the last 6 months where you did not have access to dental care?: No Was dental information given to patient?: Patient has dentist HPI HPI Comments History of Present Illness Details History of Present Illness The patient is a 20-year-old female presenting with a headache. Headache: - The patient has experienced headaches for over a month, which at times were severe enough to be incapacitating and confine her to bed. - She describes the headache as a pulsating sensation located bilaterally in the temples, which radiates to the forehead. - The patient frequently wakes up with a headache and has also experienced recent episodes of dizziness and feeling spacey. - She was taking ibuprofen and Tylenol for over a month, which resulted in stomach upset, and is now trying to use caffeine for relief, which she reports is helpful. 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 - She is not currently on any abortive migraine medications. - referred to neuro, first appt 10/2025 Acute Sinusitis: - An MRI of the brain on 07/18/2025 revealed fluid in the left sphenoid sinus, suggestive of acute sinusitis. - She visited the emergency room for her headache and was prescribed Augmentin, which she is currently taking and has provided some relief. - The patient has a history of sinus infections and underwent sinus surgery in early 2022. - This is her first sinus infection since the surgery. Obstructive Sleep Apnea: - The patient has a history of obstructive sleep apnea, which was attributed to her tonsils and adenoids. - She underwent a tonsillectomy and adenoidectomy to address this, but has not been re-tested for sleep apnea since the procedure and does not use a CPAP machine. - A sleep study was ordered by her provider, but she was never contacted for scheduling. Past Medical History - Obstructive sleep apnea, status post tonsillectomy and adenoidectomy - History of sinus infections, status post sinus surgery in 2022 - Patient is awaiting insurance approval for [employer]. Review of Systems - Neurological: Reports a pulsating headache for over a month, located bilaterally in the temples and radiating to the forehead. - She also reports recent onset of dizziness and feeling spacey. - Denies a history of seizures but expresses concern about silent seizures. - HEENT: Reports waking up with headaches. - Gastrointestinal: Reports past stomach upset from long-term use of ibuprofen and Tylenol. - Constitutional: Reports feeling miserable and missing classes due to her symptoms. Physical Exam General: Well developed, well nourished, in no acute distress. Appears stated age. Head: Normocephalic, atraumatic. Eyes: Pupils are equal, round and reactive to light and accommodation. Conjunctivae are clear. EOMI Ears: TM intact bilat, mild injection on the L Nares: Patent, frontal sinuses bilat TTP Pharynx: Clear Neuro: Exam grossly nonfocal Psych: Mood and affect appropriate. Results - Labs: Blood work performed at the emergency room was normal. - Imaging: MRI of the brain on 07/18/2025 showed no intracranial mass or mass effect, but did reveal fluid in the left sphenoid sinus, suggestive of acute sinusitis. Medical Decision Making The patient is a 20-year-old female with a one-month history of debilitating headaches. Her symptoms are likely multifactorial. The MRI finding of fluid in the left sphenoid sinus, along with some improvement on Augmentin, supports a diagnosis of acute sinusitis contributing to her symptoms. The associated dizziness is likely related to this sinus fluid affecting her equilibrium. Additionally, the patient's report of morning headaches is highly suggestive of underlying obstructive sleep apnea, a condition for which she has a history but has not been re-evaluated since her tonsillectomy and adenoidectomy. It is important for her to complete the previously ordered sleep study to assess her current status. Given the severity and persistence of her headache, abortive and prophylactic measures are warranted. A short course of oral prednisone will be added to her current antibiotic regimen to reduce sinus inflammation and help break the headache cycle, especially since she has tolerated steroids in the past. For prevention, she will be started on magnesium oxide and riboflavin, which are well-supported supplements for headache prophylaxis. The patient needs close follow-up in a few weeks to monitor her response to these interventions. Plan 1. Headache And Acute Sinusitis - Continue and complete the full course of Augmentin for sinusitis. - Prescribed prednisone, one tablet daily for five days, to reduce inflammation and help abort the headache. - Prescribed magnesium oxide and riboflavin, to be taken together at bedtime for headache prophylaxis. - Advised that using caffeine for headache relief is acceptable. - Schedule a follow-up appointment in August with PCP to assess response to treatment. 2. Obstructive Sleep Apnea (By History) - Instructed patient to contact the assistant front office manager staff to follow up on scheduling her previously ordered at-home sleep study. Patient Instructions - Please finish the entire course of your Augmentin antibiotic. - Start taking prednisone, one tablet once a day for five days. - It is best to take it in the morning with food as it can disrupt your sleep. - You have been prescribed two supplements, magnesium oxide and riboflavin, to help prevent headaches. - Take these together every night at bedtime. - If your insurance does not cover them, ask the pharmacist for the iucm-xuz-kgeiejd store brand version. - Please stop at the assistant front office manager when you leave to ask about scheduling your at-home sleep study. - The assistant front office manager will also schedule a follow-up appointment for you in August. - If you have any problems or changes in your symptoms, please update us through the patient portal. Consent Patient was informed and verbally consented to the use of an ambient scribe for clinic note documentation during this visit. Total time spent caring for the patient today was 30 minutes. This includes time spent before the visit reviewing the chart, time spent during the visit, and time spent after the visit on documentation, reviewing laboratory results, diagnostic imaging, medications, performing a medically necessary evaluation, counseling on diagnoses, care coordination, ordering appropriate tests, ordering appropriate medications, review of tests performed by other providers, reporting test results with the patient, communication with other healthcare providers. 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 Current occupational exposures/hazards: No Cognitive needs: No Hearing needs: No Vision needs: No Questionnaire Thrive Questionnaire Date Thrive assessed: 07/28/25 I am a: Patient What is your living situation today?: I have a steady place to live Within the past 12 months, did the food you bought not last and you didn't have the money to get more?: I choose not to answer this question Within the past 12 months, did you worry whether your food would run out before you got money to buy more?: I choose not to answer this question Do you have trouble paying for medicines?: I choose not to answer this question Do you have trouble getting transportation to medical appointments?: No Do you have trouble paying your heating and electricity bill?: I choose not to answer this question Do you have trouble taking care of your child, family member or friend?: I choose not to answer this question Do you have trouble with day-to-day activities such as bathing, preparing meals, shopping, managing finances, etc.?: I choose not to answer this question Are you currently unemployed and looking for a job?: I choose not to answer this question Are you interested in more education?: I choose not to answer this question Please select the resources that you would like help with: None Currently or been in a relationship where the following occur: I choose not to answer THRIVE Score: 0 LENORA-7 AMB Questionnaire LENORA-7 Date LENORA - 7 assessed: 10/02/24 Source: Developed by Drs. River Villanueva, Milagro Ramírez, Elia Banks and colleagues, with an educational reji from [employer]. Physical exam (Primary Care) Vital Signs: Last Vital Signs Temp 97.2 F 07/28/25 13:33 Pulse 103 H 07/28/25 13:33 Resp 14 07/28/25 13:33 BP 138/78 07/28/25 13:33 Pulse Ox 99 07/28/25 13:33 Oxygen Delivery Method Room Air 07/28/25 13:33 BMI result Body Mass Index 53.3 Tobacco/Smoking Status: Tobacco use Status Tobacco use date assessed 07/28/25 07/28/25 13:31 Patient Tobacco Use Status Never used Tobacco 07/28/25 13:31 e-Cigarette/Vaping Use Never Used 07/28/25 13:31 Thrive Assessment: Date of Thrive Assessment Date Thrive assessed 07/28/25 07/28/25 13:31 Currently or been in a relationship where the following occur: I choose not to answer Results Reviewed Results Reviewed: Coding Level of Care Code Est Pt Level 4 (12610) Complex EM visit Add On G2211 Diagnoses Hospital discharge follow-up Z09 Frequent headaches R51.9 STACIE (obstructive sleep apnea) G47.33 Chronic maxillary sinusitis J32.0 Sinusitis location: maxillary Assessment & Plan Assessment & Plan (1) Hospital discharge follow-up: Code(s): Z09 - Encounter for follow-up examination after completed treatment for conditions other than malignant neoplasm (2) Frequent headaches: Code(s): R51.9 - Headache, unspecified Category: Medical (3) STACIE (obstructive sleep apnea): Code(s): G47.33 - Obstructive sleep apnea (adult) (pediatric) Category: Medical (4) Chronic sinusitis: Code(s): J32.9 - Chronic sinusitis, unspecified Category: Medical Qualifiers: Sinusitis location: maxillary Qualified Code(s): J32.0 - Chronic maxillary sinusitis Plan . Medications: New magnesium oxide 400 mg PO BEDTIME 90 caps 2RF riboflavin (vitamin B2) 400 mg PO BEDTIME 90 tabs 2RF prednisone 50 mg PO DAILY 5 tabs 0RF 5 days Discontinued pcajwcaowf-mwqiijztombcb-adpu 50-300-40 mg (Fioricet) Discontinued Reason: Patient Completed Course 1 cap PO Q8H 3 days PRN 5 caps 0RF migraine headache
[2025-07-28 13:33] VITALS: BP 138/78; PULSE 103; RESP 14; TEMP 36.2; O2SAT 99; BMI 53.3
--- OUTSIDE RECORDS SUMMARY | 2025-07-28 15:24 | XMS_ITS | Clinical Summary ---
Author Organization [facility] Address [address] [place] [address] Phone Care Team Providers Care Fundraiser Name Role Phone Abilio Moss MD Primary Care Provider [phone] Abilio Moss MD Unavailable Abilio Moss MD Unavailable Medications * This document contains information received from the source organization and may not represent a complete record from that organization. norgestimate-et hinyl estradioL (Sprintec, 28,) 0.25-35 mg-mcg tablet Dose Amount: 1 tab, PO, daily, Special Instructions: 28 day (cyclic), Dispense Quantity: 84 tab, Refills: 10, Entered: 04/06/22 14:25:00 EDT, [facility]/pharmacy #[id number] 04/06/2022 Active fluticasone (Flonase Allergy Relief) 50 mcg/spray nasal spray Dose Amount: 1 spray, Nasal, daily, Special Instructions: to each nostril, Dispense Quantity: 1 EA, Refills: 11, Entered: 12/04/20 12:28:00 EDT, [facility]/pharmacy #[id number] 12/04/2020 Active hydrALAZINE (Apresoline) 25 mg tablet mg, tab, PO, daily, Entered: 11/11/22 11:55:00 EST 11/11/2022 Active midazolam (Nayzilam) 5 mg/spray (0.1 mL) spray,non-aeros ol See Instructions, Special Instructions: 1 spray (5mg) per nare for a total dose of 10mg PRN seizures greater than 5 minutes., Dispense Quantity: 2 kit, Refills: 0, Entered: 09/08/20 16:13:00 EST, [facility]/pharmacy #[id number] 09/08/2020 Active sertraline (Zoloft) 50 [...] Health Maintenance Due Date Last Done Comments Chlamydia and Gonorrhea Screening 2003 HIV Screening 2003 MMR Vaccines (1 of [...] series) 2022 Influenza Vaccine (#1) 2025 06/20/2022 Anemia Screening 03/25/2027 03/25/2022, 03/05/2021 HIB Vaccines Aged Out No longer eligi [...] this topic Medical Devices Implanted Type Area Senior Quality Manager Device Identifier Shelf Expiration Date Model / Serial / Lot Floseal Matrix Sealant Implanted:Qty: 1 on 11/22/2022 by Narciso Hsieh MD Implant Bilateral : Nose / / [id number] Procedures Procedure Name Priority Date/Time Associated Diagnosis Comments CBC W/ AUTO DIFFERENTIAL Routine 03/25/2022 9:25 AM EDT from Last 3 Months or Most Recently Relevant to Health Maintenance Results * (ABNORMAL) Complete Blood Count with Differential (03/25/2022 9:25 AM EDT) MPV 10.9 9.6 - 11.9 fL [facility] NRBC # 0.00 0.00 - 0.00 K cells/uL [facility] RDW 14.0 11.9 - 14.8 % [facility] nRBC 0.0 0.0 - 0.0 /100 WBC [facility] WBC 5.66 4.94 - 10.04 K cells/uL [facility] MCV 83.1 80.7 - 93.7 fL [facility] MCH 26.0 25.7 - 31.2 pg [facility] RBC 5.04(H) 4.03 - 4.91 M cells/uL [facility] MCHC 31.3 31.3 - 34.0 g/dL [facility] Platelets 343 199 - 352 K cells/uL [facility] Hemoglobin 13.1 11.4 - 14.8 g/dL [facility] Hematocrit 41.9 35.5 - 44.6 % [facility] 03/25/2022 9:25 AM EDT 03/25/2022 2:45 PM EDT us Kvng Cruz MD LAB BLOOD ORDERABLES Final Result [facility] [address] [place] [address], from Last 3 Months or Most Recently Relevant to Health Maintenance Care Teams Fundraiser Relationship Specialty Start Date End Date Abilio Moss MD [address] [place] [id number] PCP - General 04/25/22 Abilio Moss MD [address] [place] [phone] PCP - Insurance PCP 04/09/21 Abilio Moss MD [address] [place] [id number] PCP - Clinical PCP 04/25/22
--- OUTSIDE RECORDS SUMMARY | 2025-07-28 15:24 | XMS_ITS | Encounter Summary ---
Author Organization [facility] Address [address] [place] [address] Phone Care Team Providers Care Visitor Services Coordinator Name Role Phone Lora Mims NP Primary Care Provider [phone] Encounter Details Date Type Department Care Team (Late st Contact Info) Description 01/30/2012 Documentation [facility] [place] Family Medicine [address] [place] [address] Family Medicine, Physician [address] [place] [address] Social History Tobacco Use Types Packs/Day Years [...] on filedocumented in this encounter Care Teams Visitor Services Coordinator Relationship Specialty Start Date End Date Lora Mims NP [address] [place] [address] PCP - General Pediatrics 01/01/21 documented as of this encounter
--- OUTSIDE RECORDS SUMMARY | 2025-07-28 15:24 | XMS_ITS | Encounter Summary ---
Author Organization [facility] Address [address] [place] [address] Phone Care Team Providers Care Flat Optical Element Maker Name Role Phone Lora Mims NP Primary Care Provider [phone] Encounter Details Date Type Department Care Team (Late st Contact Info) Description 02/16/2012 Conversion Encounter [facility] [address] [facility] [place] [address] Social History Tobacco Use Types Packs/Day Years [...] on filedocumented in this encounter Care Teams Flat Optical Element Maker Relationship Specialty Start Date End Date Lora Mims NP [address] [place] [address] PCP - General Pediatrics 01/01/21 documented as of this encounter
--- OUTSIDE RECORDS SUMMARY | 2025-07-28 15:24 | XMS_ITS | Encounter Summary ---
Author Organization [facility] Address [address] [place] [address] Phone Care Team Providers Care Rate Supervisor Name Role Phone Lora Mims NP Primary Care Provider [phone] Encounter Details Date Type Department Care Team (Late st Contact Info) Description 10/17/2011 Documentation [facility] [place] [address] [place] [address] Family Medicine, Physician [address] [place] [address] Social History Tobacco Use Types Packs/Day Years [...] on filedocumented in this encounter Care Teams Rate Supervisor Relationship Specialty Start Date End Date Lora Mims NP [address] [place] [address] PCP - General Pediatrics 01/01/21 documented as of this encounter
--- OUTSIDE RECORDS SUMMARY | 2025-07-28 15:24 | XMS_ITS | Encounter Summary ---
Author Organization [facility] Address [address] [place] [address] Phone Care Team Providers Care Business Banking Sales Assistant Name Role Phone Lora Mims NP Primary Care Provider [phone] Encounter Details Date Type Department Care Team (Late st Contact Info) Description 05/04/2017 Conversion Encounter [facility] - [address] [address] Social History Tobacco Use Types Packs/Day Years [...] on filedocumented in this encounter Care Teams Business Banking Sales Assistant Relationship Specialty Start Date End Date Lora Mims NP [address] [facility] [address] [place] [address] PCP - General Pediatrics 01/01/21 documented as of this encounter
--- OUTSIDE RECORDS SUMMARY | 2025-07-28 15:24 | XMS_ITS | Encounter Summary ---
Author Organization [facility] Address [address] [place] [address] Phone Care Team Providers Care Civil Preparedness Training Officer Name Role Phone Lora Mims NP Primary Care Provider [phone] Encounter Details Date Type Department Care Team (Late st Contact Info) Description 08/31/2011 Documentation [facility] [place] [address] [place] [address] Family Medicine, Physician [address] [place] [address] Social History Tobacco Use Types Packs/Day Years [...] on filedocumented in this encounter Care Teams Civil Preparedness Training Officer Relationship Specialty Start Date End Date Lora Mims NP [address] [facility] [address] [address] [place] [address] PCP - General Pediatrics 01/01/21 documented as of this encounter
--- OUTSIDE RECORDS SUMMARY | 2025-07-28 15:24 | XMS_ITS | Encounter Summary ---
Author Organization [facility] Address [address] [place] [address] Phone Care Team Providers Care Automotive Warranty Administrator Name Role Phone Lora Mims NP Primary Care Provider [phone] Encounter Details Date Type Department Care Team (Late st Contact Info) Description 11/30/2009 Documentation [facility] [place] [address] [place] [address] Family Medicine, Physician [address] [place] [address] Social History Tobacco Use Types Packs/Day Years [...] filedocumented in this encounter Care Teams Automotive Warranty Administrator Relationship Specialty Start Date End Date Lora Mims NP [address] [facility] [address] [place] [address] PCP - General Pediatrics 01/01/21 documented as of this encounter
--- OUTSIDE RECORDS SUMMARY | 2025-07-28 15:24 | XMS_ITS | Encounter Summary ---
Author Organization [facility] Address [address] [place] [address] Phone Care Team Providers Care Brick Pitcher Name Role Phone Lora Mims NP Primary Care Provider [phone] Encounter Details Date Type Department Care Team (Late st Contact Info) Description 08/15/2011 Documentation [facility] [place] [address] [place] [address] Family Medicine, Physician [address] [place] [address] Social History Tobacco Use Types Packs/Day Years [...] on filedocumented in this encounter Care Teams Brick Pitcher Relationship Specialty Start Date End Date Lora Mims NP [address] [address] [facility] [address] [place] [address] PCP - General Pediatrics 01/01/21 documented as of this encounter
--- OUTSIDE RECORDS SUMMARY | 2025-07-28 15:24 | XMS_ITS | Encounter Summary ---
Author Organization [facility] Address [address] [place] [address] Phone Care Team Providers Care Feather Duster Winder Name Role Phone Lora Mims NP Primary Care Provider [phone] Encounter Details Date Type Department Care Team (Late st Contact Info) Description 09/08/2011 Documentation [facility] [place] Medicine [address] [place] [address] Family Medicine, Physician [address] [place] [address] Social History Tobacco Use Types Packs/Day Years [...] on filedocumented in this encounter Care Teams Feather Duster Winder Relationship Specialty Start Date End Date Lora Mims NP [address] [facility] [address] [place] [address] PCP - General Pediatrics 01/01/21 documented as of this encounter
--- OUTSIDE RECORDS SUMMARY | 2025-07-28 15:24 | XMS_ITS | Encounter Summary ---
Author Organization [facility] Address [address] [place] [address] Phone Care Team Providers Care Coordinator Of Genetic Services Name Role Phone Lora Mims NP Primary Care Provider [phone] Encounter Details Date Type Department Care Team (Late st Contact Info) Description 08/30/2011 Documentation [facility] [place] Family Medicine [address] [place] [address] Family Medicine, Physician [address] [place] [address] Social History Tobacco Use Types Packs/Day Years [...] on filedocumented in this encounter Care Teams Coordinator Of Genetic Services Relationship Specialty Start Date End Date Lora Mims NP [address] [place] [address] PCP - General Pediatrics 01/01/21 documented as of this encounter
--- OUTSIDE RECORDS SUMMARY | 2025-07-28 15:24 | XMS_ITS | Encounter Summary ---
Author Organization [facility] Address [address] [place] [address] Phone Care Team Providers Care Nurse Sane Name Role Phone Lora Mims NP Primary Care Provider [phone] Encounter Details Date Type Department Care Team (Late st Contact Info) Description 04/07/2010 Documentation [facility] [place] Family Medicine [address] [place] [address] Family Medicine, Physician [address] [place] [address] Social History Tobacco Use Types Packs/Day Years [...] on filedocumented in this encounter Care Teams Nurse Sane Relationship Specialty Start Date End Date Lora Mims NP [address] [facility] [address] [place] [address] PCP - General Pediatrics 01/01/21 documented as of this encounter
--- OUTSIDE RECORDS SUMMARY | 2025-07-28 15:24 | XMS_ITS | Encounter Summary ---
Author Organization [facility] Address [address] [place] [address] Phone Care Team Providers Care Physiotherapist'S Assistant Name Role Phone Lora Mims NP Primary Care Provider [phone] Reason for Visit * Reason Comments Med Refill Encounter Details Date Type Department Care Team (Late st Contact Info) Description 11/26/2022 Refill [facility] [address] [facility] [place] [address] Lora Mims NP [address] [facility] [place] [address] Moderate episode of recurrent major depressive disorder [...] disorder documented in this encounter Care Teams Physiotherapist'S Assistant Relationship Specialty Start Date End Date Lora Mims NP [address] [facility] [place] [address] PCP - General Pediatrics 01/01/21 documented as of this encounter
--- OUTSIDE RECORDS SUMMARY | 2025-07-28 15:24 | XMS_ITS | Encounter Summary ---
Author Organization [facility] Address [address] [place] [address] Phone Care Team Providers Care Fnp Name Role Phone Lora Mims NP Primary Care Provider [phone] Reason for Visit * Reason Comments Med Refill Encounter Details Date Type Department Care Team (Late st Contact Info) Description 11/29/2022 Refill [facility] [address] [facility] [place] [address] Lora Mims NP [address] [facility] [place] [address] Moderate episode of recurrent major depressive disorder [...] disorder documented in this encounter Care Teams Fnp Relationship Specialty Start Date End Date Lora Mims NP [facility] [facility] [place] [address] PCP - General Pediatrics 01/01/21 documented as of this encounter
--- OUTSIDE RECORDS SUMMARY | 2025-07-28 15:24 | XMS_ITS | Encounter Summary ---
Author Organization [facility] Address [address] [place] [address] Phone Care Team Providers Care Ticket Chopper Assembler Name Role Phone Lora Mims NP Primary Care Provider [phone] Encounter Details Date Type Department Care Team (Late st Contact Info) Description 10/04/2011 [place]ation [facility] [place] [address] [place] [address] Family Medicine, Physician [address] [place] [address] Social History Tobacco Use Types Packs/Day Years [...] on filedocumented in this encounter Care Teams Ticket Chopper Assembler Relationship Specialty Start Date End Date Lora Mims NP [address] [facility] [address] [place] [address] PCP - General Pediatrics 01/01/21 documented as of this encounter
--- OUTSIDE RECORDS SUMMARY | 2025-07-28 15:24 | XMS_ITS | Encounter Summary ---
Author Organization [facility] Address [address] [place] [address] Phone Care Team Providers Care Bail Bonding Agent Name Role Phone Lora Mims NP Primary Care Provider [phone] Encounter Details Date Type Department Care Team (Late st Contact Info) Description 12/10/2009 Documentation [facility] [place] Family Medicine [address] [place] [address] Family Medicine, Physician [address] [place] [address] Social History Tobacco Use Types Packs/Day Years [...] on filedocumented in this encounter Care Teams Bail Bonding Agent Relationship Specialty Start Date End Date Lora Mims NP [address] [facility] [address] [place] [address] PCP - General Pediatrics 01/01/21 documented as of this encounter
--- OUTSIDE RECORDS SUMMARY | 2025-07-28 15:24 | XMS_ITS | Encounter Summary ---
Author Organization [facility] Address [address] [place] [address] Phone Care Team Providers Care Nurses' Registry Director Name Role Phone Lora Mims NP Primary Care Provider [phone] Encounter Details Date Type Department Care Team (Late st Contact Info) Description 08/22/2011 Documentation [facility] [place] [address] [place] [address] Family Medicine, Physician [address] [place] [address] Social History Tobacco Use Types Packs/Day Years [...] on filedocumented in this encounter Care Teams Nurses' Registry Director Relationship Specialty Start Date End Date Lora Mims NP [address] [facility] [address] [place] [address] PCP - General Pediatrics 01/01/21 documented as of this encounter
--- OUTSIDE RECORDS SUMMARY | 2025-07-28 15:24 | XMS_ITS | Clinical Summary ---
Author Organization [facility] Address [address] [place] [address] Phone Care Team Providers Care [place] Boatman Name Role Phone Lora Mims COLLIN Primary Care Provider [phone] Allergies No known active allergies Medications fluticasone 50 MCG/ACT nasal spray Dose Amount: 1 spray, Nasal, daily, Special Instructions: to each nostril, Dispense Quantity: 1 EA, Refills: 11, Entered: 12/04/20 12:28:00 EDT, [facility]/pharmacy #[id number] 1 Active tretinoin 0.025 % cream Dose Amount: 1 appl, TOP, bedtime, Special Instructions: apply as tolerated, Dispense Quantity: 45 g, Refills: 1, Entered: 09/29/20 15:31:00 EST, [facility]/pharmacy #[id number] 1 Active norgestimate-eth inyl estradiol 0.25-35 MG-MCG per tablet Dose Amount: 1 tab, PO, daily, Special Instructions: 28 day (cyclic), Dispense Quantity: 84 tab, Refills: 6, Entered: 03/05/21 11:58:00 EDT, [facility]/pharmacy #[id number] 1 Active loratadine (Claritin) 10 [...] Assessment & Plan (10/30/2021 8:45 AM EST): Drjz-dihq-wnmac disease ([place]) This illness is caused by [...] treated for sinus headaches by ENT at [facility] Assessment & Plan (05/03/2021 9:56 PM EDT): DOS: 04/16/21 Dr Hsieh Dx: Chronic headaches, H/O epilepsy and resolved left sphenoid sinusitis. F/U with Neuro for headaches. No f/u scheduled. Polycystic ovary syndrome 04/06/2020 Overview (06/21/2022): Followed by [facility]- SENIOR ELECTRICAL DESIGN ENGINEER They do routine blood work- CBC, CMP, lipids, A1C Assessment & Plan (06/20/2022 3:01 PM EDT): Followed by packaging mechanic They also treat her for insulin resistance with metformin per pt Will request routine labs from them Acanthosis nigricans 05/14/2019 Acne vulgaris 05/14/2019 Obstructive sleep apnea syndrome 11/15/2018 Overview (05/03/2021): Added by [facility] Added by [facility] Epilepsy 11/27/2017 Overview (05/03/2021): Seizure(s) (780.39) Onset: 11/27/2017 Added by: Betty Carvalho Added by [facility] Assessment & Plan (06/20/2022 3:02 PM [...] Added by: Linda Cavazos Added by [facility] Added by [facility] Assessment & Plan (06/20/2022 3:02 PM EDT): 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 Has lost 4 [...] Completed 07/10/2019, 014 Procedures * Due to [place] [employer] law, this organization might not be sharing sensitive test results. Procedure Name Priority Date/Time Associated Diagnosis Comments CHLAMYDIA GC AMP PROBE Routine 06/20/2022 2:15 PM EDT Encounter for screening examination for sexually transmitted disease from Last 3 Months or Most Recently Relevant to Health Maintenance Results * Due to [place] [employer] law, this organization might not be sharing sensitive test results. * Chlamydia and Gonorrhoea, Amplified (Vagina) (06/20/2022 2:15 PM EDT) Chlamydia Trachomatis, Amplified NEGATIVE (NEG) [facility] Comment: No Chlamydia Trachomatis RNA detected in this patient's sample (REFERENCE RANGE/NORMAL VALUE: NOT DETECTED) Note: This test uses store keeper- mediated amplification method to detect rRNA from C. Trachomatis N.GONORRHOEAE AMP PROBE NEGATIVE (NEG) [facility] Comment: No Neisseria Gonorrhoeae RNA detected in this patient's sample (REFERENCE RANGE/NORMAL VALUE: NOT DETECTED) NOTE: This test uses store keeper-mediated amplification method to detect rRNA from N.Gonorrhoeae. [...] risk of sexual abuse. Consult the [facility] if needed. [...] CHLAM/GC AMP PROBE SPEC TYPE VAGINAL SPECIMEN [facility] Comment: Testing performed or reported by [facility], a Service of [facility], [address] [place] [address] Cortes Franco MD, Barrel Lathe Operator Outside [facility]# [id number] Swab (Vagina) 06/20/2022 2:1 5 PM EDT 06/21/2022 8:34 AM EDT Lora Mims NP LAB MICROBIOLOGY - GENERAL ORDER KARINA Final Result [facility] from Last 3 Months or Most Recently Relevant to Health [place] [address] [facility] [place] [employer] Address: [facility] [address] [place] [address] [place] [address] Care Teams [place] Boatman Relationship Specialty Start Date End Date Lora Mims NP [facility] [facility] [place] [address] PCP - General Pediatrics 01/01/21
--- OUTSIDE RECORDS SUMMARY | 2025-07-28 15:24 | XMS_ITS | Encounter Summary ---
Author Organization [facility] Address [address] [place] [address] Phone Care Team Providers Care Distribution Manager Name Role Phone Lora Mims NP Primary Care Provider [phone] Encounter Details Date Type Department Care Team (Late st Contact Info) Description 07/15/2011 Documentation [facility] [place] [address] [place] [address] Family Medicine, Physician [address] [place] [address] Social History Tobacco Use Types Packs/Day Years [...] on filedocumented in this encounter Care Teams Distribution Manager Relationship Specialty Start Date End Date Lora Mims NP [address] [facility] [address] [place] [address] PCP - General Pediatrics 01/01/21 documented as of this encounter
--- OUTSIDE RECORDS SUMMARY | 2025-07-28 15:24 | XMS_ITS | Encounter Summary ---
Author Organization [facility] Address [address] [place] [address] Phone Care Team Providers Care Linoleum Mechanic Name Role Phone Lora Mims NP Primary Care Provider [phone] Encounter Details Date Type Department Care Team (Late st Contact Info) Description 11/04/2010 Documentation [facility] [place] [address] [place] [address] Family Medicine, Physician [address] [place] [address] Social History Tobacco Use Types Packs/Day Years [...] on filedocumented in this encounter Care Teams Linoleum Mechanic Relationship Specialty Start Date End Date Lora Mims NP [address] [facility] [address] [place] [address] PCP - General Pediatrics 01/01/21 documented as of this encounter
--- OUTSIDE RECORDS SUMMARY | 2025-07-28 15:24 | XMS_ITS | Encounter Summary ---
Author Organization [facility] Address [address] [place] [address] Phone Care Team Providers Care Hemodialysis Rn Name Role Phone Lora Mims NP Primary Care Provider [phone] Encounter Details Date Type Department Care Team (Late st Contact Info) Description 01/08/2010 Documentation [facility] [place] Medicine [address] [place] [address] Family Medicine, Physician [address] [place] [address] Social History Tobacco Use Types Packs/Day Years [...] on filedocumented in this encounter Care Teams Hemodialysis Rn Relationship Specialty Start Date End Date Lora Mims NP [address] [facility] [address] [place] [address] PCP - General Pediatrics 01/01/21 documented as of this encounter
--- OUTSIDE RECORDS SUMMARY | 2025-07-28 15:24 | XMS_ITS | Encounter Summary ---
Author Organization [facility] Address [address] [place] [address] Phone Care Team Providers Care Retort Kiln Burner Name Role Phone Lora Mims NP Primary Care Provider [phone] Encounter Details Date Type Department Care Team (Late st Contact Info) Description 07/20/2011 Documentation [facility] [place] Family Medicine [address] [place] [address] Family Medicine, Physician [address] [place] [address] Social History Tobacco Use Types Packs/Day Years [...] on filedocumented in this encounter Care Teams Retort Kiln Burner Relationship Specialty Start Date End Date Lora Mims NP [address] [facility] [address] [place] [address] PCP - General Pediatrics 01/01/21 documented as of this encounter
--- OUTSIDE RECORDS SUMMARY | 2025-07-28 15:24 | XMS_ITS | Encounter Summary ---
Author Organization [facility] Address [address] [place] [address] Phone Care Team Providers Care Steel Analyst Name Role Phone Lora Mims NP Primary Care Provider [phone] Encounter Details Date Type Department Care Team (Late st Contact Info) Description 08/09/2011 Documentation [facility] [place] Family Medicine [address] [place] [address] Family Medicine, Physician [address] [place] [address] Social History Tobacco Use Types Packs/Day Years [...] filedocumented in this encounter Care Teams Steel Analyst Relationship Specialty Start Date End Date Lora Mims NP [address] [facility] [address] [place] [address] PCP - General Pediatrics 01/01/21 documented as of this encounter
--- OUTSIDE RECORDS SUMMARY | 2025-07-28 15:24 | XMS_ITS | Encounter Summary ---
Author Organization [facility] Address [address] [place] [address] Phone Care Team Providers Care Railroad Track Inspector Name Role Phone Lora Mims NP Primary Care Provider [phone] Encounter Details Date Type Department Care Team (Late st Contact Info) Description 08/29/2011 Documentation [facility] Family Medicine [address] [place] [address] Family Medicine, Physician [address] [place] [address] Social History Tobacco Use Types Packs/Day Years [...] on filedocumented in this encounter Care Teams Railroad Track Inspector Relationship Specialty Start Date End Date Lora Mims NP [address] [facility] [address] [place] [address] PCP - General Pediatrics 01/01/21 documented as of this encounter
--- OUTSIDE RECORDS SUMMARY | 2025-07-28 15:24 | XMS_ITS | Encounter Summary ---
Author Organization [facility] Address [address] [place] [address] Phone Care Team Providers Care General Machine Operator Name Role Phone Lora Mims NP Primary Care Provider [phone] Encounter Details Date Type Department Care Team (Late st Contact Info) Description 09/01/2011 Documentation [facility] [place] [address] [place] [address] Family Medicine, Physician [address] [place] [address] Social History Tobacco Use Types Packs/Day Years [...] on filedocumented in this encounter Care Teams General Machine Operator Relationship Specialty Start Date End Date Lora Mims NP [address] [facility] [address] [place] [address] PCP - General Pediatrics 01/01/21 documented as of this encounter
--- OUTSIDE RECORDS SUMMARY | 2025-07-28 15:24 | XMS_ITS | Encounter Summary ---
Author Organization [facility] Address [address] [place] [address] Phone Care Team Providers Care Forder Operator Name Role Phone Lora Mims NP Primary Care Provider [phone] Encounter Details Date Type Department Care Team (Late st Contact Info) Description 12/17/2009 Documentation [facility] [place] [address] [place] [address] Family Medicine, Physician [address] [place] [address] Social History Tobacco Use Types Packs/Day Years [...] on filedocumented in this encounter Care Teams Forder Operator Relationship Specialty Start Date End Date Lora Mims NP [address] [facility] [address] [place] [address] PCP - General Pediatrics 01/01/21 documented as of this encounter
== END 2025-07-28 14:09 | disposition home or self-care (01) ==
LOC: HO.HMCFM 13:19
PROVIDERS: PCP Physician Assistant; Visit Provider Nurse Practitioner Family
DX: Z09 Encounter for follow-up examination after completed treatment for conditions other than malignant neoplasm (principal); R51.9 Headache, unspecified; G47.33 Obstructive sleep apnea (adult) (pediatric); J32.0 Chronic maxillary sinusitis

== ENCOUNTER → 2025-07-28 13:18 | Outpatient (BNVA) | payer OTHER, SELFPAY | PROVIDERS: PCP Physician Assistant; Visit Provider Nurse Practitioner Family | DX: Z09 Encounter for follow-up examination after completed treatment for conditions other than malignant neoplasm (principal); R51.9 Headache, unspecified; G47.33 Obstructive sleep apnea (adult) (pediatric); J32.0 Chronic maxillary sinusitis | CPT/HCPCS: 99212 ==

== ENCOUNTER 2025-08-28 13:43 | Outpatient (AMB) | payer OTHER, SELFPAY ==
--- NOTE | 2025-08-28 13:46 | MHC.PC.OV ---
Vital Signs 08/28/25 13:51 Height 5 ft 6 in Weight 329 lb 2 oz BMI 53.1 BP 124/58 L Blood Pressure Location Lt brachial Position Sitting Respiration 16 Pulse 110 H Pulse Source Pulse Oximeter Temp 97.6 F Temp Source Oral Pulse Oximetry (%) 97 Oxygen Delivery Method Room Air Intake Visit Reasons: Dec with to on migraines Intake Note: Follow up migraines Registered Pharmacy Technician Required: No Allergies No Known Allergies Allergy (Verified 08/28/25 13:50) Medication List - Last Reconciled 08/28/25 by Deanna Head PA-C fluticasone propionate 50 mcg/actuation (Flonase Allergy Relief) 2 sprays intranasal DAILY hydrochlorothiazide 25 mg PO QAM hydroxyzine HCl 25 mg PO Q8H PRN 90 days magnesium oxide 400 mg PO BEDTIME riboflavin (vitamin B2) 400 mg PO BEDTIME sertraline 100 mg PO DAILY tirzepatide (weight loss) (Zepbound) 2.5 mg (0.5 mL) subcut QWEEK Tobacco use date assessed: 07/28/25 Dental Screening Dental Screen Date: 07/28/25 HPI Dec with to fu on migraines HPI Details The patient is a 20-year-old female presenting for a follow-up. Pysch: She is currently on sertraline 100 mg daily and feeling well with this. She uses hydroxyzine if absolutely needed. She is doing well in school currently. Recently had some roommate issues but feels better. General: She states that in the past she has been on spironolactone for her PCOS but that made her feel nauseous and spacey. She was on metformin years ago and recently I did restart her on this. She had has not noticed any real improvement of improvement of her menstrual cycle and PCOS symptoms. She does continue to gain weight and has some GI side effects from the metformin. She just tried phentermine which she states made her feel sick. She would not be a candidate for Wellbutrin given her history of anxiety and depression currently being well-controlled and thinks in the past she has taken this in it had caused increased anxiety.. Her insurance states that they will covers zepbound. She has tried numerous cvds-drb-ztiuruk supplements, Atkins, [place], low-calorie diet, low carb diet, and going to the gym. She is currently working on a diet but is not able to lose much weight. has a hx of obstructive sleep apnea, fatty liver, and htn. GI: She does have persistently elevated LFTs and was referred in the past to GI. She did have an abdominal ultrasound which was consistent with fatty liver. She has seen a synthetic cloth binding cutter in the past and was referred again. Endo: Recent A1c has increased to 6.2. CV: Her blood pressure is better on hydrochlorothiazide. Neuro: Has a history of sleep apnea but this has not been rechecked in many years. She recently has been waking up with headaches in the morning. She does snore a lot at night. She is awaiting sleep study. She does have an upcoming appointment with Neurology and sleep Medicine. HEENT: Currently feels like she has a sinus infection. She has had a history of recurrent sinus infections in the past states that she had sinus surgery. She is using Flonase regularly but not on any antihistamines. For the last 3 days her sinus congestion and pressure has gotten worse. No fevers or chills. 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 Current occupational exposures/hazards: No Cognitive needs: No Hearing needs: No Vision needs: No Questionnaire Thrive Questionnaire Date Thrive assessed: 10/02/24 I am a: Patient What is your living situation today?: I have a steady place to live Within the past 12 months, did the food you bought not last and you didn't have the money to get more?: I choose not to answer this question Within the past 12 months, did you worry whether your food would run out before you got money to buy more?: I choose not to answer this question Do you have trouble paying for medicines?: I choose not to answer this question Do you have trouble getting transportation to medical appointments?: No Do you have trouble paying your heating and electricity bill?: I choose not to answer this question Do you have trouble taking care of your child, family member or friend?: I choose not to answer this question Do you have trouble with day-to-day activities such as bathing, preparing meals, shopping, managing finances, etc.?: I choose not to answer this question Are you currently unemployed and looking for a job?: I choose not to answer this question Are you interested in more education?: I choose not to answer this question Please select the resources that you would like help with: None Currently or been in a relationship where the following occur: I choose not to answer THRIVE Score: 0 LENORA-7 AMB Questionnaire LENORA-7 Date LENORA - 7 assessed: 10/02/24 Source: Developed by Drs. River Villanueva, Milagro Ramírez, Elia Banks and colleagues, with an educational reji from [employer]. Physical exam (Primary Care) Vital Signs: Last Vital Signs Temp 97.6 F 08/28/25 13:51 Pulse 110 H 08/28/25 13:51 Resp 16 08/28/25 13:51 BP 124/58 L 08/28/25 13:51 Pulse Ox 97 08/28/25 13:51 Oxygen Delivery Method Room Air 08/28/25 13:51 BMI result Body Mass Index 53.1 Tobacco/Smoking Status: Tobacco use Status Tobacco use date assessed 07/28/25 08/28/25 13:47 Patient Tobacco Use Status Never used Tobacco 08/28/25 13:47 e-Cigarette/Vaping Use Never Used 08/28/25 13:47 Thrive Assessment: Date of Thrive Assessment Date Thrive assessed 10/02/24 08/28/25 13:47 Currently or been in a relationship where the following occur: I choose not to answer Const Orientation/consciousness: patient oriented x3 HENMT Other: TMs dome shaped with small airfluid levels. nasal mucosa erythemaous and edematous. Right maxillary sinus tenderness present Ears: hearing grossly normal bilaterally Neck Thyroid: Thyroid normal Lymphatic: no lymphadenopathy noted Resp Auscultation: clear to auscultation bilaterally Cardio Rate: regular rate Rhythm: regular rhythm Heart sounds: S1 normal heart sound present and S2 normal heart sound present GI Inspection: Yes normal to inspection Palpation (GI): Soft to palpation and Other GI palpation findings present (nontender, no cva tenderness) Auscultation: normoactive bowel sounds Rectal Exam - Female: deferred Skin General skin exam: no rashes or lesions noted Neuro General: patient oriented x3, gait normal and no focal motor deficits Coding Level of Care Code Est Pt Level 4 (44957) Add On Problem Visit Only Diagnoses Recurrent sinusitis J32.9 Class 3 severe obesity with body mass index (BMI) of 50.0 to 59.9 in adult E66.813; Z68.43 Prediabetes R73.03 Assessment & Plan Assessment & Plan (1) Recurrent sinusitis: Code(s): J32.9 - Chronic sinusitis, unspecified Category: Medical Plan: start doxy use flonase and zyrtec regularly referral to allergy and immunology referral to ENT- previous sinus surgery (2) Class 3 severe obesity with body mass index (BMI) of 50.0 to 59.9 in adult: Code(s): E66.813 - Obesity, class 3; Z68.43 - Body mass index [BMI] 50.0-59.9, adult Category: Medical Plan: advised to get sleep study will try mounjaro for prediabetes as insurance is not accepting zepbound (3) Prediabetes: Code(s): R73.03 - Prediabetes Category: Medical Plan: will start mounjaro 2.5 mg weekly f.u 4 weeks or sooner prn Orders: Referrals Ear/Nose/Throat Referral J32.9 - Chronic sinusitis, unspecified Allergy & Immunology Referral J32.0 - Chronic maxillary sinusitis Medications: New cetirizine (Zyrtec) 10 mg PO DAILY 90 tabs 0RF doxycycline hyclate 100 mg PO BID 20 tabs 0RF tirzepatide (Mounjaro) 2.5 mg (0.5 mL) subcut QWEEK 2 mL 2RF Refilled fluticasone propionate 50 mcg/actuation (Flonase Allergy Relief) administer into each nostril 2 sprays intranasal DAILY 16 grams 5RF Discontinued tirzepatide (weight loss) (Zepbound) Discontinued Reason: Doctor's Order 2.5 mg (0.5 mL) subcut QWEEK 2 mL 4RF Patient Instructions: ?
[2025-08-28 13:51] VITALS: BP 124/58; PULSE 110; RESP 16; TEMP 36.4; O2SAT 97; BMI 53.1
--- OUTSIDE RECORDS SUMMARY | 2025-08-28 21:01 | XMS_ITS | Clinical Summary ---
Author Organization [facility] spital Address [address] [place] [address] Phone Care Team Providers Care Ediscovery Project Manager Name Role Phone Abilio Moss MD Primary Care Provider [phone] Abilio Moss MD Unavailable Abilio Moss MD Unavailable Medications * This document contains information received from the source organization and may not represent a complete record from that organization. norgestimate-et hinyl estradioL (Sprintec, 28,) 0.25-35 mg-mcg tablet Dose Amount: 1 tab, PO, daily, Special Instructions: 28 day (cyclic), Dispense Quantity: 84 tab, Refills: 10, Entered: 04/06/22 14:25:00 EDT, [facility]/pharmacy #[id number] 04/06/2022 Active fluticasone (Flonase Allergy Relief) 50 mcg/spray nasal spray Dose Amount: 1 spray, Nasal, daily, Special Instructions: to each nostril, Dispense Quantity: 1 EA, Refills: 11, Entered: 12/04/20 12:28:00 EDT, [facility]/pharmacy #[id number] 12/04/2020 Active hydrALAZINE (Apresoline) 25 mg tablet mg, tab, PO, daily, Entered: 11/11/22 11:55:00 EST 11/11/2022 Active midazolam (Nayzilam) 5 mg/spray (0.1 mL) spray,non-aeros ol See Instructions, Special Instructions: 1 spray (5mg) per nare for a total dose of 10mg PRN seizures greater than 5 minutes., Dispense Quantity: 2 kit, Refills: 0, Entered: 09/08/20 16:13:00 EST, [facility]/pharmacy #[id number] 09/08/2020 Active sertraline (Zoloft) 50 [...] this topic Medical Devices Implanted Type Area Tailor Garment Fitter Device Identifier Shelf Expiration Date Model / Serial / Lot Floseal Matrix Sealant Implanted:Qty: 1 on 11/22/2022 by Narciso Hsieh MD Implant Bilateral : Nose / / [id number] Procedures Procedure Name Priority Date/Time Associated Diagnosis Comments CBC W/ AUTO DIFFERENTIAL Routine 03/25/2022 9:25 AM EDT from Last 3 Months or Most Recently Relevant to Health Maintenance Results * (ABNORMAL) Complete Blood Count with Differential (03/25/2022 9:25 AM EDT) MPV 10.9 9.6 - 11.9 fL [facility] NRBC # 0.00 0.00 - 0.00 K cells/uL [facility] RDW 14.0 11.9 - 14.8 % [facility] nRBC 0.0 0.0 - 0.0 /100 WBC [facility] WBC 5.66 4.94 - 10.04 K cells/uL [facility] MCV 83.1 80.7 - 93.7 fL [facility] MCH 26.0 25.7 - 31.2 pg [facility] RBC 5.04(H) 4.03 - 4.91 M cells/uL [facility] MCHC 31.3 31.3 - 34.0 g/dL [facility] Platelets 343 199 - 352 K cells/uL [facility] Hemoglobin 13.1 11.4 - 14.8 g/dL [facility] Hematocrit 41.9 35.5 - 44.6 % [facility] 03/25/2022 9:25 AM EDT 03/25/2022 2:45 PM EDT us Kvng Cruz MD LAB BLOOD ORDERABLES Final Result [facility] [address] [place] [address], from Last 3 Months or Most Recently Relevant to Health Maintenance Care Teams Ediscovery Project Manager Relationship Specialty Start Date End Date Abilio Moss MD [address] [place] [address] PCP - General 04/25/22 Abilio Moss MD [address] [place] [address] PCP - Insurance PCP 04/09/21 Abilio Moss MD [address] [place] [address] PCP - Clinical PCP 04/25/22
--- OUTSIDE RECORDS SUMMARY | 2025-08-28 21:01 | XMS_ITS | Encounter Summary ---
Author Organization [facility] Address [address] [place] [address] Phone Care Team Providers Care Car Wash Attendant Automatic Name Role Phone Lora Mims NP Primary Care Provider [phone] Reason for Visit * Reason Comments Med Refill Encounter Details Date Type Department Care Team (Late st Contact Info) Description 11/29/2022 Refill [facility] [address] [facility] [place] [address] Lora Mims NP [address] [facility] [place] [address] Moderate episode of recurrent major depressive disorder [...] disorder documented in this encounter Care Teams Car Wash Attendant Automatic Relationship Specialty Start Date End Date Lora Mims NP [facility] [facility] [place] [address] PCP - General Pediatrics 01/01/21 documented as of this encounter
--- OUTSIDE RECORDS SUMMARY | 2025-08-28 21:01 | XMS_ITS | Encounter Summary ---
Author Organization [facility] Address [address] [place] [address] Phone Care Team Providers Care Car Audio Installer Name Role Phone Lora Mims NP Primary Care Provider [phone] Encounter Details Date Type Department Care Team (Late st Contact Info) Description 12/10/2009 Documentation [facility] [place] [facility] [address] [place] [address] Family Medicine, Physician [address] [place] [address] Social History Tobacco Use Types Packs/Day Years [...] filedocumented in this encounter Care Teams Car Audio Installer Relationship Specialty Start Date End Date Lora Mims NP [address] [facility] [address] [place] [address] PCP - General Pediatrics 01/01/21 documented as of this encounter
--- OUTSIDE RECORDS SUMMARY | 2025-08-28 21:01 | XMS_ITS | Encounter Summary ---
Author Organization [facility] Address [address] [place] [address] Phone Care Team Providers Care Food Checkers And Cashiers Supervisor Name Role Phone Lora Mims NP Primary Care Provider Reason for Visit * Reason Comments Med Refill Encounter Details Date Type Department Care Team (Late st Contact Info) Description 11/26/2022 Refill [facility] [address] [facility] [place] [address] Lora Mims NP [address] [facility] [place] [address] Moderate episode of recurrent major depressive disorder [...] disorder documented in this encounter Care Teams Food Checkers And Cashiers Supervisor Relationship Specialty Start Date End Date Lora Mims NP [address] [facility] [place] [address] PCP - General Pediatrics 01/01/21 documented as of this encounter
--- OUTSIDE RECORDS SUMMARY | 2025-08-28 21:01 | XMS_ITS | Encounter Summary ---
Author Organization [facility] Address [address] [place] [address] Phone Care Team Providers Care Aluminum Pourer Name Role Phone Lora Mims NP Primary Care Provider [phone] Encounter Details Date Type Department Care Team (Late st Contact Info) Description 05/04/2017 Conversion Encounter [facility] - [address] [address] Social History Tobacco Use Types Packs/Day Years [...] on filedocumented in this encounter Care Teams Aluminum Pourer Relationship Specialty Start Date End Date Lora Mims NP [address] [facility] [address] [place] [address] PCP - General Pediatrics 01/01/21 documented as of this encounter
--- OUTSIDE RECORDS SUMMARY | 2025-08-28 21:01 | XMS_ITS | Clinical Summary ---
Author Organization [facility] Address [address] [place] [address] Phone Care Team Providers Care Medicare Sales Executive Name Role Phone Lora Mims COLLIN Primary Care Provider [phone] Allergies No known active allergies Medications fluticasone 50 MCG/ACT nasal spray Dose Amount: 1 spray, Nasal, daily, Special Instructions: to each nostril, Dispense Quantity: 1 EA, Refills: 11, Entered: 12/04/20 12:28:00 EDT, [facility]/pharmacy #[id number] 1 Active tretinoin 0.025 % cream Dose Amount: 1 appl, TOP, bedtime, Special Instructions: apply as tolerated, Dispense Quantity: 45 g, Refills: 1, Entered: 09/29/20 15:31:00 EST, [facility]/pharmacy #[id number] 1 Active norgestimate-eth inyl estradiol 0.25-35 MG-MCG per tablet Dose Amount: 1 tab, PO, daily, Special Instructions: 28 day (cyclic), Dispense Quantity: 84 tab, Refills: 6, Entered: 03/05/21 11:58:00 EDT, [facility]/pharmacy #[id number] 1 Active loratadine (Claritin) [...] Assessment & Plan (10/30/2021 8:45 AM EST): Sktr-zngi-minqi disease (Coxsackie) This illness is caused by [...] treated for sinus headaches by ENT at [facility] Assessment & Plan (05/03/2021 9:56 PM EDT): DOS: 04/16/21 Dr Hsieh Dx: Chronic headaches, H/O epilepsy and resolved left sphenoid sinusitis. F/U with Neuro for headaches. No f/u scheduled. 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 They also treat her for insulin resistance with metformin per pt Will request routine labs from them Acanthosis nigricans 05/14/2019 Acne vulgaris 05/14/2019 Obstructive sleep apnea syndrome 11/15/2018 Overview (05/03/2021): Added by [facility] Added by [facility] Epilepsy 11/27/2017 Overview (05/03/2021): Seizure(s) (780.39) Onset: 11/27/2017 Added by: Betty Carvalho Added by [facility] Assessment & Plan (06/20/2022 3:02 PM [...] Obesity, NOS (278.00) Onset: 05/15/2017 Added by: iLnda Cavazos Added by [facility] Added by [facility] Assessment & Plan (06/20/2022 3:02 PM EDT): 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 Has lost 4 [...] 07/10/2019, 014 Procedures * Due to [place] [employer] law, this organization might not be sharing sensitive test results. Procedure Name Priority Date/Time Associated Diagnosis Comments CHLAMYDIA GC AMP PROBE Routine 06/20/2022 2:15 PM EDT Encounter for screening examination for sexually transmitted disease from Last 3 Months or Most Recently Relevant to Health Maintenance Results * Due to [place] [employer] law, this organization might not be sharing sensitive test results. * Chlamydia and Gonorrhoea, Amplified (Vagina) (06/20/2022 2:15 PM EDT) Chlamydia Trachomatis, Amplified NEGATIVE (NEG) [facility] Comment: No Chlamydia Trachomatis RNA detected in this patient's sample (REFERENCE RANGE/NORMAL VALUE: NOT DETECTED) Note: This test uses yeast maker- mediated amplification method to detect rRNA from C. Trachomatis N.GONORRHOEAE AMP PROBE NEGATIVE (NEG) [facility] Comment: No Neisseria Gonorrhoeae RNA detected in this patient's sample (REFERENCE RANGE/NORMAL VALUE: NOT DETECTED) NOTE: This test uses yeast maker-mediated amplification method to detect rRNA from N.Gonorrhoeae. [...] without risk of sexual abuse. Consult the [facility] if needed. Contact [...] CHLAM/GC AMP PROBE SPEC TYPE VAGINAL SPECIMEN [facility] Comment: Testing performed or reported by [facility], a Service of [facility], [address] [place] [address] Cortes Franco MD, Opinion Polls Survey Worker [facility]# [id number] Swab (Vagina) 06/20/2022 2:1 5 PM EDT 06/21/2022 8:34 AM EDT Lora Mims NP LAB MICROBIOLOGY - GENERAL ORDER KARINA Final Result [facility] from Last 3 Months or Most Recently Relevant to Health Maintenance [place] [id number] [facility] [place] [id number] Care Teams Medicare Sales Executive Relationship Specialty Start Date End Date Lora Mims NP [facility] [facility] [place] [address] PCP - General Pediatrics 01/01/21
--- OUTSIDE RECORDS SUMMARY | 2025-08-28 21:01 | XMS_ITS | Encounter Summary ---
Author Organization [facility] Address [address] [place] [address] Phone Care Team Providers Care Automotive Mechanic Name Role Phone Lora Mims NP Primary Care Provider [phone] Encounter Details Date Type Department Care Team (Late st Contact Info) Description 04/07/2010 Documentation [facility] [place] Family Medicine [address] [place] [address] Family Medicine, Physician [address] [place] [address] Social History Tobacco Use Types Packs/Day Years [...] filedocumented in this encounter Care Teams Automotive Mechanic Relationship Specialty Start Date End Date Lora Mims NP [address] [facility] [address] [place] [address] PCP - General Pediatrics 01/01/21 documented as of this encounter
--- OUTSIDE RECORDS SUMMARY | 2025-08-28 21:01 | XMS_ITS | Encounter Summary ---
Author Organization [facility] Address [address] [place] [address] Phone Care Team Providers Care Travel Insurance Agent Name Role Phone Lora Mims NP Primary Care Provider [phone] Encounter Details Date Type Department Care Team (Late st Contact Info) Description 11/04/2010 Documentation [facility] [place] [address] [place] [address] Family Medicine, Physician [address] [place] [address] Social History Tobacco Use Types Packs/Day Years [...] on filedocumented in this encounter Care Teams Travel Insurance Agent Relationship Specialty Start Date End Date Lora Mims NP [address] [facility] [address] [place] [address] PCP - General Pediatrics 01/01/21 documented as of this encounter
--- OUTSIDE RECORDS SUMMARY | 2025-08-28 21:02 | XMS_ITS | Encounter Summary ---
Author Organization [facility] Address [address] [place] [address] Phone Care Team Providers Care 6Th Grade Teacher Name Role Phone Lora Mims NP Primary Care Provider [phone] Encounter Details Date Type Department Care Team (Late st Contact Info) Description 08/29/2011 Documentation [facility] [facility] [place] [address] [place] [address] Family Medicine, Physician [address] [place] [address] Social History Tobacco Use Types Packs/Day Years [...] on filedocumented in this encounter Care Teams 6Th Grade Teacher Relationship Specialty Start Date End Date Lora Mims NP [address] [facility] [address] [place] [address] PCP - General Pediatrics 01/01/21 documented as of this encounter
--- OUTSIDE RECORDS SUMMARY | 2025-08-28 21:02 | XMS_ITS | Encounter Summary ---
Author Organization [facility] Address [address] [place] [address] Phone Care Team Providers Care Sprigger Name Role Phone Lora Mims NP Primary Care Provider [phone] Encounter Details Date Type Department Care Team (Late st Contact Info) Description 08/15/2011 Documentation [facility] [place] [address] [place] [address] Family Medicine, Physician [address] [place] [address] Social History Tobacco Use Types Packs/Day Years [...] on filedocumented in this encounter Care Teams Sprigger Relationship Specialty Start Date End Date Lora Mims NP [address] [facility] [address] [place] [address] PCP - General Pediatrics 01/01/21 documented as of this encounter
--- OUTSIDE RECORDS SUMMARY | 2025-08-28 21:02 | XMS_ITS | Encounter Summary ---
Author Organization [facility] Address [address] [place] [address] Phone Care Team Providers Care Pet Ambassador Name Role Phone Lora Mims NP Primary Care Provider [phone] Encounter Details Date Type Department Care Team (Late st Contact Info) Description 07/20/2011 Documentation [facility] [place] [address] [place] [address] Family Medicine, Physician [address] [place] [address] Social History Tobacco Use Types Packs/Day Years [...] on filedocumented in this encounter Care Teams Pet Ambassador Relationship Specialty Start Date End Date Lora Mims NP [address] [facility] [address] [place] [address] PCP - General Pediatrics 01/01/21 documented as of this encounter
--- OUTSIDE RECORDS SUMMARY | 2025-08-28 21:02 | XMS_ITS | Encounter Summary ---
Author Organization [facility] Address [address] [place] [address] Phone Care Team Providers Care Emergency Veterinarian Name Role Phone Lora Mims NP Primary Care Provider [phone] Encounter Details Date Type Department Care Team (Late st Contact Info) Description 08/22/2011 Documentation [facility] [place] [address] [place] [address] Family Medicine, Physician [address] [place] [address] Social History Tobacco Use Types Packs/Day Years [...] on filedocumented in this encounter Care Teams Emergency Veterinarian Relationship Specialty Start Date End Date Lora Mims NP [address] [facility] [address] [place] [address] PCP - General Pediatrics 01/01/21 documented as of this encounter
--- OUTSIDE RECORDS SUMMARY | 2025-08-28 21:02 | XMS_ITS | Encounter Summary ---
Author Organization [facility] Address [address] [place] [address] Phone Care Team Providers Care Transfusion Aide Name Role Phone Lora Mims NP Primary Care Provider [phone] Encounter Details Date Type Department Care Team (Late st Contact Info) Description 08/30/2011 Documentation [facility] [place] [address] [place] [address] Family Medicine, Physician [address] [place] [address] Social History Tobacco Use Types Packs/Day Years [...] on filedocumented in this encounter Care Teams Transfusion Aide Relationship Specialty Start Date End Date Lora Mims NP [address] [facility] [place] [facility] [address] [place] [address] PCP - General Pediatrics 01/01/21 documented as of this encounter
--- OUTSIDE RECORDS SUMMARY | 2025-08-28 21:02 | XMS_ITS | Encounter Summary ---
Author Organization [facility] Address [address] [place] [address] Phone Care Team Providers Care Filterer Name Role Phone Lora Mims NP Primary Care Provider [phone] Encounter Details Date Type Department Care Team (Late st Contact Info) Description 12/17/2009 Documentation [facility] [place] [address] [place] [address] Family Medicine, Physician [address] [place] [address] Social History Tobacco Use Types Packs/Day Years [...] on filedocumented in this encounter Care Teams Filterer Relationship Specialty Start Date End Date Lora Mims NP [address] [facility] [address] [place] [address] PCP - General Pediatrics 01/01/21 documented as of this encounter
--- OUTSIDE RECORDS SUMMARY | 2025-08-28 21:02 | XMS_ITS | Encounter Summary ---
Author Organization [facility] Address [address] [place] [address] Phone Care Team Providers Care Top And Seat Cover Fitter Name Role Phone Lora Mims NP Primary Care Provider [phone] Encounter Details Date Type Department Care Team (Late st Contact Info) Description 01/30/2012 Documentation [facility] [place] [address] [place] [address] Family Medicine, Physician [address] [place] [address] Social History Tobacco Use Types Packs/Day Years [...] on filedocumented in this encounter Care Teams Top And Seat Cover Fitter Relationship Specialty Start Date End Date Lora Mims NP [address] [facility] [address] [place] [address] PCP - General Pediatrics 01/01/21 documented as of this encounter
--- OUTSIDE RECORDS SUMMARY | 2025-08-28 21:02 | XMS_ITS | Encounter Summary ---
Author Organization [facility] Address [address] [place] [address] Phone Care Team Providers Care Glost Tile Shader Name Role Phone Lora Mims NP Primary Care Provider [phone] Encounter Details Date Type Department Care Team (Late st Contact Info) Description 09/01/2011 Documentation [facility] [place] [address] [place] [address] Family Medicine, Physician [address] [place] [address] Social History Tobacco Use Types Packs/Day Years [...] on filedocumented in this encounter Care Teams Glost Tile Shader Relationship Specialty Start Date End Date Lora Mims NP [address] [facility] [address] [place] [address] PCP - General Pediatrics 01/01/21 documented as of this encounter
--- OUTSIDE RECORDS SUMMARY | 2025-08-28 21:02 | XMS_ITS | Encounter Summary ---
Author Organization [facility] Address [address] [place] [address] Phone Care Team Providers Care Thresher Broomcorn Name Role Phone Lora Mims NP Primary Care Provider [phone] Encounter Details Date Type Department Care Team (Late st Contact Info) Description 10/17/2011 Documentation [facility] [place] [address] [place] [address] Family Medicine, Physician [address] [place] [address] Social History Tobacco Use Types Packs/Day Years [...] on filedocumented in this encounter Care Teams Thresher Broomcorn Relationship Specialty Start Date End Date Lora Mims NP [address] [facility] [address] [place] [address] PCP - General Pediatrics 01/01/21 documented as of this encounter
--- OUTSIDE RECORDS SUMMARY | 2025-08-28 21:02 | XMS_ITS | Encounter Summary ---
Author Organization [facility] Address [address] [place] [address] Phone Care Team Providers Care Field Service Representative Name Role Phone Lora Mims NP Primary Care Provider [phone] Encounter Details Date Type Department Care Team (Late st Contact Info) Description 08/31/2011 Documentation [facility] [facility] [place] [address] [place] [address] Family Medicine, Physician [address] [place] [address] Social History Tobacco Use Types Packs/Day Years [...] on filedocumented in this encounter Care Teams Field Service Representative Relationship Specialty Start Date End Date Lora Mims NP [address] [facility] [address] [place] [address] PCP - General Pediatrics 01/01/21 documented as of this encounter
--- OUTSIDE RECORDS SUMMARY | 2025-08-28 21:02 | XMS_ITS | Encounter Summary ---
Author Organization [facility] Address [address] [place] [address] Phone Care Team Providers Care Drafter Marine Name Role Phone Lora Mims NP Primary Care Provider [phone] Encounter Details Date Type Department Care Team (Late st Contact Info) Description 10/04/2011 Documentation [facility] [place] [address] [place] [address] Family Medicine, Physician [address] [place] [address] Social History Tobacco Use Types Packs/Day Years [...] on filedocumented in this encounter Care Teams Drafter Marine Relationship Specialty Start Date End Date Lora Mims NP [address] [facility] [address] [place] [address] PCP - General Pediatrics 01/01/21 documented as of this encounter
--- OUTSIDE RECORDS SUMMARY | 2025-08-28 21:02 | XMS_ITS | Encounter Summary ---
Author Organization [facility] Address [address] [place] [address] Phone Care Team Providers Care Sulphate Tester Name Role Phone Lora Mims NP Primary Care Provider [phone] Encounter Details Date Type Department Care Team (Late st Contact Info) Description 07/15/2011 Documentation [facility] [place] [address] [place] [address] Family Medicine, Physician [address] [place] [address] Social History Tobacco Use Types Packs/Day Years [...] on filedocumented in this encounter Care Teams Sulphate Tester Relationship Specialty Start Date End Date Lora Mims NP [address] [facility] [address] [place] [address] PCP - General Pediatrics 01/01/21 documented as of this encounter
--- OUTSIDE RECORDS SUMMARY | 2025-08-28 21:02 | XMS_ITS | Encounter Summary ---
Author Organization [facility] Address [address] [place] [address] Phone Care Team Providers Care Hydraulic Modeling Engineer Name Role Phone Lora Mims NP Primary Care Provider [phone] Encounter Details Date Type Department Care Team (Late st Contact Info) Description 11/30/2009 Documentation [facility] [place] [address] [place] [address] Family Medicine, Physician [address] [place] [address] Social History Tobacco Use Types Packs/Day Years [...] on filedocumented in this encounter Care Teams Hydraulic Modeling Engineer Relationship Specialty Start Date End Date Lora Mims NP [address] [facility] [address] [place] [address] PCP - General Pediatrics 01/01/21 documented as of this encounter
--- OUTSIDE RECORDS SUMMARY | 2025-08-28 21:02 | XMS_ITS | Encounter Summary ---
Author Organization [facility] Address [address] [place] [address] Phone Care Team Providers Care Ladies Locker Room Attendant Name Role Phone Lora Mims NP Primary Care Provider [phone] Encounter Details Date Type Department Care Team (Late st Contact Info) Description 09/08/2011 Documentation [facility] [place] [address] [place] [address] Family Medicine, Physician [address] [place] [address] Social History Tobacco Use Types Packs/Day Years [...] on filedocumented in this encounter Care Teams Ladies Locker Room Attendant Relationship Specialty Start Date End Date Lora Mims NP [address] [facility] [address] [place] [address] PCP - General Pediatrics 01/01/21 documented as of this encounter
--- OUTSIDE RECORDS SUMMARY | 2025-08-28 21:02 | XMS_ITS | Encounter Summary ---
Author Organization [facility] Address [address] [place] [address] Phone Care Team Providers Care Housetrailer Servicer Name Role Phone Loar Mims NP Primary Care Provider [phone] Encounter Details Date Type Department Care Team (Late st Contact Info) Description 01/08/2010 Documentation [facility] [place] [address] [place] [address] Family Medicine, Physician [address] [place] [address] Social History Tobacco Use Types Packs/Day Years [...] on filedocumented in this encounter Care Teams Housetrailer Servicer Relationship Specialty Start Date End Date Lora Mims NP [address] [facility] [address] [place] [address] PCP - General Pediatrics 01/01/21 documented as of this encounter
--- OUTSIDE RECORDS SUMMARY | 2025-08-28 21:02 | XMS_ITS | Encounter Summary ---
Author Organization [facility] Address [address] [place] [address] Phone Care Team Providers Care Ship Fitter Name Role Phone Lora Mims NP Primary Care Provider [phone] Encounter Details Date Type Department Care Team (Late st Contact Info) Description 02/16/2012 Conversion Encounter [facility] [address] [facility] [place] [address] Social History Tobacco Use Types Packs/Day Years [...] on filedocumented in this encounter Care Teams Ship Fitter Relationship Specialty Start Date End Date Lora Mims NP [address] [facility] [place] [address] PCP - General Pediatrics 01/01/21 documented as of this encounter
--- OUTSIDE RECORDS SUMMARY | 2025-08-28 21:02 | XMS_ITS | Encounter Summary ---
Author Organization [facility] Address [address] [place] [address] Phone Care Team Providers Care House Wirer Name Role Phone Lora Mims NP Primary Care Provider [phone] Encounter Details Date Type Department Care Team (Late st Contact Info) Description 08/09/2011 Documentation [facility] [place] [address] [place] [address] Family Medicine, Physician [address] [place] [address] Social History Tobacco Use Types Packs/Day Years [...] on filedocumented in this encounter Care Teams House Wirer Relationship Specialty Start Date End Date Lora Mims NP [address] [facility] [address] [place] [address] PCP - General Pediatrics 01/01/21 documented as of this encounter
== END 2025-08-28 14:10 | disposition home or self-care (01) ==
LOC: HO.HMCFM 13:44
PROVIDERS: PCP Physician Assistant; Visit Provider Physician Assistant
DX: J32.9 Chronic sinusitis, unspecified (principal); E66.813 Obesity, class 3; Z68.43 Body mass index [BMI] 50.0-59.9, adult; R73.03 Prediabetes

== ENCOUNTER → 2025-08-28 13:43 | Outpatient (BNVA) | payer OTHER, SELFPAY | PROVIDERS: PCP Physician Assistant; Visit Provider Physician Assistant | DX: J32.9 Chronic sinusitis, unspecified (principal); E66.813 Obesity, class 3; R73.03 Prediabetes | CPT/HCPCS: 99212 ==